=== PATIENT | female | born 1945 | race Caucasian/White ===

== ENCOUNTER → 2016-09-26 | Outpatient (CLI) | payer MEDICARE, MEDICAID ==
[~2016-09-26] MED LIST: ALN70T PO; ASPI-999 PO; CALC-697 PO; CALC-901 PO; CARB15DR87 EACH EAR; CARB15DR87 OT; CHOL200035 PO; CLOP75TA PO; DEXT1DRO8 OU; DIPH25CA6 PO; FRSM40T PO; GNT.3OP5 OU; KCL10CCR PO; LORA-877 PO; METO-333 PO; METO25TA PO; MIRA25TA PO; MTP100TCR; MULT-35 PO; OMG1KC PO; POLY15DR14 OU; POLY17PO6 PO; POTA10TA14 PO; PRV20T PO; RT-ALBUINH IH; SULAR; TRIA15OI9 TP; VERA120T PO; VERA120T84 PO; VIT1CAPS44 PO; [UNRECOGNIZED DRUG - OTHER] PO
--- NOTE | 2016-09-26 20:33 | Diagnostic Imaging Report ---
Left breast diagnostic mammogram. The current study was also evaluated with a Computer Aided Detection (CAD) system. INDICATION: Increasing calcifications in the central upper aspect of the left breast. FINDINGS: Magnification views are performed and demonstrate minimal pleomorphism and calcification seen at the upper aspect of the left breast with no underlying mass identified. When compared to prior exams, there was only slight increase in these calcifications compared to the prior exam. IMPRESSION: Slowly increasing calcifications demonstrate no significant pleomorphism and are favored to be benign such as dystrophic etiology calcifications. 6 months followup mammograms recommended. ACR BI-RADS Category 3: Probably benign findings. Result letter will be mailed to the patient. Note: At least 10% of breast cancer is not imaged by mammography. Dictated by: Dictated on workstation # [id number]
== END ==
LOC: RAD 13:10
PROVIDERS: ATTEND Nurse Practitioner Family
DX: R92.8 Other abnormal and inconclusive findings on diagnostic imaging of breast (principal)

== ENCOUNTER → 2016-09-27 | Outpatient (CLI) | payer MEDICARE, MEDICAID | LOC: RAD 11:48 | PROVIDERS: ATTEND Internal Medicine Cardiovascular Disease | DX: I70.213 Atherosclerosis of native arteries of extremities with intermittent claudication, bilateral legs (principal); I65.23 Occlusion and stenosis of bilateral carotid arteries; I10 Essential (primary) hypertension; E78.4 Other hyperlipidemia; Z72.0 Tobacco use | CPT/HCPCS: 93923 ==

== ENCOUNTER 2016-11-08 06:55 | Day surgery (SDC) | payer MEDICARE, MEDICAID ==
[~2016-11-08] VITALS: Ht 157.5 cm; Wt 61.7 kg
[2016-11-08] VITALS (11 sets, daily range): BP systolic 147–187; BP diastolic 56–74
[~2016-11-08 06:55] MED LIST changes: -ASPI-999 PO; -CALC-901 PO; -CARB15DR87 EACH EAR; -DIPH25CA6 PO; -METO-333 PO; -MIRA25TA PO; -MULT-35 PO; -OMG1KC PO; -POLY15DR14 OU; -POLY17PO6 PO; -POTA10TA14 PO; -RT-ALBUINH IH; -TRIA15OI9 TP; -VERA120T PO; -VIT1CAPS44 PO
[2016-11-08] MEDS ORDERED: NS IV 1000 ML 1,000 ML ONE (07:06)
[2016-11-08] MEDS ORDERED: HEParin (CATH LAB) 2,000 ML IV ONE (07:06)
[2016-11-08] MEDS ORDERED: LIDOCAINE 1% INJ 20 ML (XYLOCAINE) VIAL ONE (07:06)
[2016-11-08] MEDS ORDERED: NS IV 1000 ML 1,000 ML IV SCH ×2 (07:15→09:11)
[2016-11-08 07:38] LABS: MEAN PLATELET VOLUME 10.2 FL (7.4-10.4); RED BLOOD COUNT 5.39 10^6/uL (4.35-5.85); RED CELL DISTRIBUTION WIDTH 14.2 % (10.0-14.5); WHITE BLOOD COUNT 6.3 10^3/uL (4.3-11.0)
[2016-11-08 07:47] LABS: INR 0.9 (0.8-1.4); PROTHROMBIN TIME PATIENT 11.8 SEC (12.2-14.7)
[2016-11-08 07:56] LABS: ALANINE AMINOTRANSFERASE 22 U/L (0-55); ALBUMIN 4.2 G/DL (3.2-4.5); ANION GAP 10 MMOL/L (5-14); ASPARTATE AMINO TRANSFERASE 22 U/L (5-34); BILIRUBIN,TOTAL 0.4 MG/DL (0.1-1.0); BLOOD UREA NITROGEN 16 MG/DL (7-18); BUN/CREATININE RATIO 19; CALCIUM 9.1 MG/DL (8.5-10.1); CARBON DIOXIDE 28 MMOL/L (21-32); CHLORIDE 105 MMOL/L (98-107); CHOLESTEROL 159 MG/DL (< 200); CREATININE SERUM 0.86 MG/DL (0.60-1.30); DIRECT LDL 76 MG/DL (1-129); GFR ESTIMATED > 60; GLUCOSE 112 MG/DL (70-105); SODIUM 143 MMOL/L (135-145); TRIGLYCERIDES 130 MG/DL (<150); VLDL CHOLESTEROL 26 MG/DL (5-40)
[2016-11-08] MEDS ORDERED: MULT-35 PO (08:06)
[2016-11-08] MEDS ORDERED: VERA120T PO (08:06)
[2016-11-08] MEDS ORDERED: POTA10TA14 PO (08:06)
[2016-11-08] MEDS ORDERED: RT-ALBUINH IH (08:06)
[2016-11-08] MEDS ORDERED: METO-333 PO (08:06)
[2016-11-08] MEDS ORDERED: MIRA25TA PO (08:06)
[2016-11-08] MEDS ORDERED: OMG1KC PO (08:06)
[2016-11-08] MEDS ORDERED: POLY17PO6 PO (08:06)
[2016-11-08] MEDS ORDERED: CALC-901 PO (08:08)
[2016-11-08] MEDS ORDERED: TRIA15OI9 TP (08:11)
[2016-11-08] MEDS ORDERED: fentaNYL INJECTION 100 MCG/2 ML AMP ONE (08:11)
[2016-11-08] MEDS ORDERED: MIDAZOLAM 5 MG/5 ML (VERSED) VIAL ONE (08:11)
[2016-11-08] MEDS ORDERED: diphenhydrAMINE 50 MG/ML INJ (BENADRYL) ONE (08:11)
--- NOTE | 2016-11-08 08:20 | Cardiac Procedure Note-CS/ASA ---
Pre-Procedure Note Pre-Op Procedure Note H&P Reviewed The H&P was reviewed, patient examined and no changes noted. Date H&P Reviewed: Nov 08, 2016 Time H&P Reviewed: 08:20 Conscious Sedation Pre-Proced Time Reviewed: 08:20 ASA Class: 3 Airway Mallampati Classification: ([place] appropriate class) I. II. III, IV Lungs Heart ASA score ASA 1: a normal healthy patient ASA 2: a patient with a mild systemic disease (mid diabetes, controlled hypertension, obesity ASA 3: a patient with a severe systemic disease that limits activity (angina , COPD, prior Myocardial infarction) ASA 4: a patient with an incapacitating disease that is a constant threat to life (CHF, renal failure) ASA 5: a moribund patient not expected to survive 24 hrs. (ruptured aneurysm) ASA 6: a declared brain patient whose organs are being harvested. For emergent operations, add the letter E after the classification Grade 2 Sedation Plan: Analgesia, Amnesia, Plan communicated to team members, Discussed options with patient/fam, Discussed risks with patient/fam Note The patient is an appropriate candidate to undergo the planned procedure, sedation, and anesthesia. The patient immediately re-assessed prior to indication. KAYLIN PORTER MD FACP FACC CCDS Nov 08, 2016 08:20
[2016-11-08] MEDS ORDERED: PATIENT MAY USE OWN MEDS, ALL PO SCH (09:15)
[2016-11-08] MEDS ORDERED: ASPI-999 PO (09:15)
--- NOTE | 2016-11-08 09:15 | Discharge Inst-Post CATH ---
Discharge Inst-CATH Post Cardiac Cath D/C Inst Follow Up/Plan Follow up with Dr Gerardo next week CARDIAC CATH DISCHARGE INSTRUCTIONS *Hold Metformin for 48 hours post heart cath. ACTIVITY * Go Home directly and rest. * Limit activity of the leg (or wrist if it was used) for 7 days including aerobics, swimming, jogging, bicycling, etc. * Restrict stair-climbing for 7 days if possible, if not, climb up with your non -cath leg, then bring together on the same step. * Avoid lifting, pushing, pulling or excessive movement of the affected extremity for 7 days. * Customary sexual activity may be resumed after 2 days-use caution not to use a position that strains or causes pain to the affected extremity. * No driving for 24 hours. * NO SMOKING. * Avoid straining for bowel movements for 7 days. * Gentle walking on level ground is allowed. * Returning to work will depend on the type of procedure and the results. Your doctor will discuss this with you. CALL YOUR DOCTOR FOR ANY OF THE FOLLOWING: *If bleeding from the puncture site occurs- Apply gentle pressure to site with clean cloth and call your doctor or EMS. * If a knot or lump forms under the skin, increases in size, or causes pain. * If bruising appears to be worsening or moving further down your leg instead of disappearing. * Temperature above 101 F. CARE OF YOUR GROIN INCISION; * Bruising or purple discoloration of the skin near the puncture site is common. * You may shower only, no bathtub bathing for 5 days. Be careful to avoid slipping as your leg may feel stiff. * If a closure device was used on your femoral artery, please see the attached guide regarding care of the device and your leg. * REMOVE the dressing from your groin the next day after your procedure in the shower. CARE OF YOUR WRIST INCISION; * Bruising or purple discoloration of the skin near the puncture site is common. * You may shower. * DO NOT submerge wrist. * Remove dressing in 24 hours. KAYLIN GERARDO MD [facility] CCDS Nov 08, 2016 09:15
--- NOTE | 2016-11-08 09:16 | Discharge Inst-Cardiology ---
Discharge Inst-Cardiac Discharge Medications New Medications: Aspirin (Aspirin) 81 Mg Tab.chew 81 MG PO DAILY #90 Ref 3 TAB Continued Medications: Albuterol Sulfate (Ventolin Hfa Common Canister) 1 Puff Puff 1-2 PUFF IH Q4H 1 PUFF = 90 MCG PRN SHORTNESS OF BREATH PUFF Alendronate Sodium (Fosamax) 70 Mg Tab 70 MG PO [place] TAB Calcium Carbonate/Vitamin D3 (Calcium 600 + Vit D 800 Tab) 1 Each Tablet 1 TAB PO DAILY TAB Cholecalciferol (Vitamin D3) (Vitamin D3) 2,000 Unit Capsule 2000 UNIT PO DAILY TAB Clopidogrel Bisulfate (Plavix 75 Mg) 75 Mg Tablet 75 MG PO DAILY TAB Furosemide (Lasix) 40 Mg Tablet 40 MG PO DAILY TAB Metoprolol Tartrate (Metoprolol Tartrate) 25 Mg Tablet 25 MG PO BID TAB Mirabegron (Myrbetriq) 25 Mg Tab.er.24h 25 MG PO DAILY TAB Multivitamin (Daily Multiple Vitamin) 1 Each Tablet 1 TAB PO DAILY TAB [place] 3 Polyunsat Fatty Acids (Fish Oil 1,000 mg Capsule) 1,000 Mg Cap 2000 MG PO DAILY TAKES 2 (1000MG) CAPSULES CAP Polyethylene Glycol 3350 (Miralax) 17 Gm Powd.pack 17 GM PO DAILY PRN CONSTIPATION EACH Potassium Chloride (Klor-Con M10) 10 Meq Tab.er.prt 10 MEQ PO DAILY Pravastatin Sodium (Pravachol) 20 Mg Tablet 20 MG PO HS TAB Triamcinolone Acetonide (Triamcinolone Acetonide 0.5% Ointment) 15 Gm Oint TP DAILY APPLY TO DRY PATCH IN EAR AND CORNERS OF MOUTH TUBE Verapamil HCl (Calan) 120 Mg Tablet 120 MG PO HS TAB KAYLIN PORTER MD FACP FACC CCDS Nov 08, 2016 09:16
--- NOTE | 2016-11-08 13:03 | PROCEDURE REPORT ---
PROCEDURE PHYSICIAN: KAYLIN PORTER PERIPHERAL ANGIOGRAPHY REPORT DATE OF PROCEDURE: 11/08/2016 Chayo Trevino is a 71-year-old lady with known peripheral arterial disease and a history of bilateral common iliac artery stenting by Dr. North in 2011. The patient had undergone kissing stents (7 x 37) by Dr. North at that time. She has had a recurrent increasing leg claudication and segmental leg pressures that were indicative of significant peripheral arterial disease. An informed consent was obtained for angiography for delineation of anatomy and formulation of the therapeutic plan. PROCEDURE: She was brought to the cardiac catheterization laboratory in a fasting state. The right groin was prepared and draped in usual sterile fashion. 1% lidocaine was used for local anesthesia. Modified Seldinger technique was used to advance a 5-Austrian sheath into the right femoral artery. A 5-Austrian pigtail catheter was used for abdominal aortic angiography. The pigtail was then pulled back to just above the level of aortoiliac junction and bilateral leg artery angiography was performed runoff down to the level of the ankles on both sides. ABDOMINAL AORTIC ANGIOGRAPHY: Abdominal aortic angiography indicates mild to moderate abdominal atherosclerosis without significant abdominal aortic aneurysm or abdominal aortic stenosis. Renal arteries are identified and do not exhibit significant disease. The mesenteric vessels, to the extent identified, do not exhibit significant disease. There are patent stents in the aortoiliac bifurcation. BILATERAL LEG ARTERY ANGIOGRAPHY: On the right side, the common iliac artery stent is patent. The right external iliac artery is nearly totally occluded at its ostium and the near total occlusion appears to persist until the reconstitution of the right superficial femoral artery, both antegrade and via collaterals. The superficial femoral artery on the right side does not appear to have significant obstructive disease and the popliteal artery is intact as is the distal trifurcation. On the left side, the common iliac artery stent is patent and there is 70% stenosis in the distal common iliac just past the stent. The external iliac and internal iliac arteries are patent. The left common iliac artery is patent. The left superficial femoral artery is occluded at its ostium and reconstitutes via collaterals in its distal portion. The left popliteal artery is intact as is the trifurcation on the left side. CONCLUSIONS: Severe peripheral arterial disease consisting of near total occlusion of the external iliac and common iliac on the right side and near total to total occlusion of the superficial femoral artery on the left side. There appears to be a 3 vessel runoff on both sides. DESCRIPTION AND RECOMMENDATIONS: Risk factor modification has been reviewed. Current regimen is being continued. She has been advised to refrain from smoking. We will discuss the case with surgical and peripheral interventional services to decide a definitive therapeutic plan. Job ID: [id number] Dictated Date: 11/08/2016 08:57:36 Time Study Observer Date: 11/08/2016 12:05:48 / rosas HARPER
== END 2016-11-08 13:28 | disposition home or self-care (01) ==
LOC: CATH 06:55 → SURG 09:28 → CATH 13:28
PROVIDERS: ATTEND Internal Medicine Cardiovascular Disease
DX: I70.213 Atherosclerosis of native arteries of extremities with intermittent claudication, bilateral legs (principal); I70.92 Chronic total occlusion of artery of the extremities; I70.0 Atherosclerosis of aorta; I10 Essential (primary) hypertension; E78.5 Hyperlipidemia, unspecified; R06.09 Other forms of dyspnea; H35.30 Unspecified macular degeneration; Z79.899 Other long term (current) drug therapy; Z72.0 Tobacco use; Z95.820 Peripheral vascular angioplasty status with implants and grafts
CPT/HCPCS: 36200; 36415; 75625; 75716; 80053; 80061; 85027; 85610; 85730; 87081

== ENCOUNTER 2016-11-17 08:42 | Day surgery (SDC) | payer MEDICARE, MEDICAID ==
[~2016-11-17] VITALS: Ht 157.5 cm; Wt 61.7 kg
[2016-11-17] VITALS (16 sets, daily range): BP systolic 117–160; BP diastolic 44–116
[~2016-11-17 08:42] MED LIST changes: +ASPI-999 PO; +CALC-901 PO; +METO-333 PO; +MIRA25TA PO; +MULT-35 PO; +OMG1KC PO; +POLY17PO6 PO; +POTA10TA14 PO; +RT-ALBUINH IH; +TRIA15OI9 TP; +VERA120T PO
[2016-11-17] MEDS ORDERED: HEParin (CATH LAB) 2,000 ML IV ONE (09:05)
[2016-11-17] MEDS ORDERED: LIDOCAINE 1% INJ 20 ML (XYLOCAINE) VIAL ONE (09:05)
[2016-11-17] MEDS ORDERED: NS IV 1000 ML 1,000 ML ONE (09:05)
[2016-11-17] MEDS ORDERED: NS IV 1000 ML 1,000 ML IV SCH (09:30)
[2016-11-17 09:57] LABS: INR 0.9 (0.8-1.4); PROTHROMBIN TIME PATIENT 12.2 SEC (12.2-14.7)
[2016-11-17 10:02] LABS: ALBUMIN 4.6 G/DL (3.2-4.5); BILIRUBIN,TOTAL 0.5 MG/DL (0.1-1.0); CALCIUM 9.6 MG/DL (8.5-10.1); CREATININE SERUM 1.01 MG/DL (0.60-1.30); POTASSIUM 4.1 MMOL/L (3.6-5.0); TOTAL PROTEIN 7.2 G/DL (6.4-8.2)
[2016-11-17] MEDS ORDERED: ASPI-999 PO (10:07)
[2016-11-17] MEDS ORDERED: DIPH25CA6 PO (10:07)
[2016-11-17] MEDS ORDERED: CARB15DR87 EACH EAR (10:07)
[2016-11-17] MEDS ORDERED: MIDAZOLAM 5 MG/5 ML (VERSED) VIAL ONE (12:25)
[2016-11-17] MEDS ORDERED: fentaNYL INJECTION 100 MCG/2 ML AMP ONE (12:25)
[2016-11-17] MEDS ORDERED: VERAPAMIL 5 MG/2 ML (CALAN) VIAL IV ONE (13:14)
[2016-11-17] MEDS ORDERED: NITROGLYCERIN DRIP 25 MG/D5W 250 ML IV ONE (13:14)
[2016-11-17] MEDS ORDERED: HEParin 1000 UNIT/ML (10ML VIAL) FOR BOLUS ONE (13:14)
--- NOTE | 2016-11-17 15:38 | Cardiac Procedure Note-CS/ASA ---
Pre-Procedure Note Pre-Op Procedure Note H&P Reviewed The H&P was reviewed, patient examined and no changes noted. Date H&P Reviewed: Nov 17, 2016 Time H&P Reviewed: 13:00 Conscious Sedation Pre-Proced Time Reviewed: 13:00 ASA Class: 3 Airway Mallampati Classification: ([place] appropriate class) I. II. III, IV Lungs Heart ASA score ASA 1: a normal healthy patient ASA 2: a patient with a mild systemic disease (mid diabetes, controlled hypertension, obesity ASA 3: a patient with a severe systemic disease that limits activity (angina , COPD, prior Myocardial infarction) ASA 4: a patient with an incapacitating disease that is a constant threat to life (CHF, renal failure) ASA 5: a moribund patient not expected to survive 24 hrs. (ruptured aneurysm) ASA 6: a declared brain patient whose organs are being harvested. For emergent operations, add the letter E after the classification Grade 1 Sedation Plan: Analgesia, Amnesia, Plan communicated to team members, Discussed options with patient/fam, Discussed risks with patient/fam Note The patient is an appropriate candidate to undergo the planned procedure, sedation, and anesthesia. The patient immediately re-assessed prior to indication. More FERNANDEZ MD Nov 17, 2016 3:38 pm
--- NOTE | 2016-11-17 15:40 | Cardiology Post Procedure Note ---
Post-Procedure Note Post-Op Procedure Note Procedure Start Date: Nov 17, 2016 Procedure Start Time: 13:00 Name of Procedure: peripheral angiography, balloon angioplasty and stent to left superficial femoral artery and popliteal artery. Findings/Procedure Note left popliteal access. Totally occluded left SFA treated successfully with balloon angioplasty and stent. Severely diseased left popliteal artery treated successfully with balloon angioplasty and stent. Anesthesia Type: Conscious Sedation Estimated blood loss (mL): 20 cc Contrast Amount: 65 cc of omnipaque Post-Operative Diagnosis Post-operative diagnosis: Successful balloon angioplasty and stent to a totally occluded left SFA and severely diseased left popliteal artery. More FERNANDEZ MD Nov 17, 2016 3:40 pm
[2016-11-17] MEDS: NS IV 1000 ML 1,000 ML IV SCH ×2 (16:00→22:42)
[2016-11-17] MEDS ORDERED: PATIENT MAY USE OWN MEDS, ALL PO SCH (17:30)
[2016-11-17] MEDS ORDERED: CATHETER FLUSH 10 ML SYR IV PRN (19:30)
[2016-11-18] VITALS (7 sets, daily range): BP systolic 126–144; BP diastolic 51–60
[2016-11-18 04:40] LABS: ANION GAP 13 MMOL/L (5-14); BLOOD UREA NITROGEN 16 MG/DL (7-18); BUN/CREATININE RATIO 22; CALCIUM 8.2 MG/DL (8.5-10.1); CARBON DIOXIDE 20 MMOL/L (21-32); CHLORIDE 107 MMOL/L (98-107); CREATININE SERUM 0.74 MG/DL (0.60-1.30); GFR ESTIMATED > 60; GLUCOSE 81 MG/DL (70-105); POTASSIUM 4.1 MMOL/L (3.6-5.0); SODIUM 140 MMOL/L (135-145)
[2016-11-18 06:14] LABS: MEAN PLATELET VOLUME 10.5 FL (7.4-10.4); RED BLOOD COUNT 4.43 10^6/uL (4.35-5.85); WHITE BLOOD COUNT 6.5 10^3/uL (4.3-11.0)
[2016-11-18] MEDS ORDERED: ASPIRIN E.C. 81 MG (ECOTRIN) TAB PO SCH (09:00)
[2016-11-18] MEDS ORDERED: CLOPIDOGREL 75 MG (PLAVIX) TABLET PO SCH (09:00)
--- NOTE | 2016-11-18 09:55 | PROCEDURE REPORT ---
PROCEDURE PHYSICIAN: JUMANA OROPEZA DATE OF PROCEDURE: 11/17/2016 PERIPHERAL AORTOGRAM AND INTERVENTION REPORT: REFERRING PHYSICIAN: Dr. Emir Gerardo PERFORMING PHYSICIAN: Dr. Gregorio Oropeza. INDICATION: Severe lifestyle limiting claudication, refractory to optimal medical therapy. PREOPERATIVE DIAGNOSIS: Severe lifestyle limiting bilateral lower extremity claudication which is refractory to optimal medical therapy. POSTOPERATIVE DIAGNOSIS: Total long segment of occlusion in the left superficial femoral artery successfully treated with balloon angioplasty and 2 stents. HISTORY: Ms. Trevino is a 71-year-old lady who is a patient of Dr. Emir Gerardo. She had severe lifestyle limiting bilateral lower extremity claudication which was refractory to optimal medical therapy. Peripheral angiogram was performed by Dr. Gerardo recently which showed severe proximal common iliac artery stenosis as well as a long segment of occlusion of the entire segment of the left SFA with significant disease in the left popliteal artery and 2 vessel runoff in the left lower extremity. There is also occlusion of the right common femoral artery and the right external iliac artery as well. There is a history of bilateral kissing stent in the ostia of the bilateral common iliac artery in the past. She has also had a previous balloon angioplasty in the right SFA. She was referred to our office for evaluation of complex peripheral intervention. All of the images were reviewed and the plan was to get access in the left popliteal artery and to do balloon angioplasty and intervention from that approach. Therefore the patient was scheduled for urgent angiography and intervention. PROCEDURE PERFORMED: 1. Ultrasound-guided access of the left popliteal artery. 2. Selective peripheral angiogram of the left popliteal artery, left anterior tibial artery, left posterior tibial artery, left SFA. 3. Selective angiogram of the left common femoral artery. 4. Balloon angioplasty and stent placement in the entire segment of the left superficial femoral artery. SPECIMENS: None. COMPLICATIONS: None. ESTIMATED BLOOD LOSS: 20 mL. ANTICOAGULATION: IV heparin. FLUOROSCOPY TIME: 27.1 minute. FLUOROSCOPY DOSE: 226 mgy CONTRAST: 65 cc of omnipaque PROCEDURE DETAILS: The patient was brought to the [facility] after informed consent was taken. All the risks and complications were explained in detail. The patient was placed in a prone position and the left popliteal fossa was prepped for access. She was draped and prepped in the usual sterile fashion. Access was gained in the left popliteal artery with difficulty under ultrasound. A couple of times we gained access in the popliteal vein. The popliteal artery does have at least moderate disease and a small caliber. However, with difficulty, we were able to place a 4-Lithuanian sheath. After proper placement of the sheath was confirmed, we did give 200 mcg of nitroglycerin and 5 mg of verapamil. We then exchanged to a 6-Lithuanian sheath; however, we noted that the 6-Lithuanian sheath was almost occlusive with no significant distal flow. The patient did not complain of any left lower extremity pain; therefore, we decided to proceed. We took a 0.035 standard angle Glidewire 260 cm and a Navicross 0.035 microcatheter. With difficulty we were able to gradually traverse and advance through the entire occlusive segment of the SFA and were able to reach the distal aspect of the left INSPECTION AND TESTING SUPERVISOR. We then took the wire out and performed a selective angiogram through the microcatheter in the distal external iliac artery which showed that we were intraluminal. We then performed another angiogram in the left distal external iliac artery and did a followthrough which showed a totally occluded SFA in the entire length with collaterals being supplied by the deep femoral artery. Disease was also noted in the left common femoral artery. We then took [place] 35, 5 x 200 x 150 cm balloon but were not able to advance it into the SFA. We then took it out and placed the microcatheter back. We then took a 0.014 Spart[place]ore 300 cm guidewire and placed it into the distal abdominal aorta. On top of this 0.014 guidewire, we took an [place] 14, 4 x 120 x 150 balloon and were able to advance the distal aspect of the left [employer]PECTION AND TESTING SUPERVISOR. We performed balloon angioplasty in the distal left INSPECTION AND TESTING SUPERVISOR and proximal SFA at 11 atmospheres for 44 seconds. We then did overlapping balloon inflations in the entire SFA. Next inflation was done at 10 atmospheres for 65 seconds. We went up with a microcatheter and took a selective angiogram which somewhat recanalization of the SFA; however, there was still significant residual stenosis. We then took an [place] 35, 5 x 200 x 150 and were now able to advance it in the proximal SFA and distal INSPECTION AND TESTING SUPERVISOR and performed an inflation at 17 atmospheres for 33 seconds. We then did another overlapping balloon dilatation in the mid segment for 17 atmospheres for 33 seconds. We then did a 3rd inflation for 12 atmospheres for 42 seconds in the distal SFA as well as the popliteal artery, which was also significantly diseased. We then took a Supera 5.5 x 150 x 120 stent and placed it very carefully at the very distal INSPECTION AND TESTING SUPERVISOR into the proximal and mid aspect of the superficial femoral artery. This was postdilated at high pressures with the 5.0 balloon that we had already had used previously as well. We then took another Supera 5.0 x 120 x 120 and did a short overlap and deployed it in the distal SFA and into the popliteal artery. The stent deployment system was taken out and then we placed the microcatheter back which showed reasonable flow in the SFA. However, moderate disease was noted in the left INSPECTION AND TESTING SUPERVISOR as well; however, we still had very faint distal flow in the popliteal due to an occlusive sheath. We therefore took the 6-Lithuanian sheath out and placed a 4-Lithuanian sheath and through which gave 200 mcg of nitroglycerin and took a selective angiogram with good flow with spasm was noted in the popliteal artery, but we noted good flow into the popliteal artery with a 3 vessel runoff in the left lower extremity. At this point in time, we took the wires and everything out. The 6F sheath (4F sheath replaced by another 6F sheath) was sutured in place. The patient tolerated the procedure well and was sent to the recovery area with stable vital signs. The popliteal sheath will be closed with manual compression in the stepdown unit. IMPRESSION/CONCLUSION: 1. Long segment of totally occluded SFA treated successfully with balloon angioplasty and stent. Severely diseased popliteal artery also treated with balloon angioplasty and stent. 2. Mid and distal aspect of the popliteal artery is a small caliber and had spasm and occlusive 6-Lithuanian sheath. 3. Moderate left INSPECTION AND TESTING SUPERVISOR stenosis noted. 4. Previously known severe left common artery stenosis and total occlusion of the right INSPECTION AND TESTING SUPERVISOR will be treated at later date. 5. The patient will be transferred to the stepdown unit and continue on aspirin and Plavix. Distal pulses will be checked at regular intervals. 6. The patient, once ready for after discharge, will be seen in my office in 3 to 4 weeks to plan for the next intervention. Job ID: [id number] Dictated Date: 11/17/2016 23:26:34 Yard Coordinator Date: 11/18/2016 09:30:30 / stanley HARPER
--- NOTE | 2016-11-18 22:40 | Cardiology Discharge Summary ---
Diagnosis/Chief Complaint Date of Admission 11/17/2016 Date of Discharge 11/18/2016 Admission Diagnosis severe lifestyle limiting claudication refractory to optimal medical therapy Final/Discharge Diagnosis long segment total occlusion of the left SFA successfully treated with balloon angioplasty and 2 stents. Chief Complaint/HPI Chief Complaint/HPI severe lifestyle limiting claudication refractory to optimal medical therapy. Discharge Summary Procedures peripheral angiography and intervention. Successful balloon angioplasty and stent placement in a totally occluded left SFA via left popliteal access. Two long supera stents placed. Discharge Physical Examination normal left popliteal fossa with no bruit. Normal cardiac and respiratory exam. Hospital Course stable Discussion & Recommendations Discussion stable. Follow up appt.: Dr. Oropeza in 3-4 weeks Dicharge Diet: Cardiac Diet Activity as Tolerated: Yes Home Medications Reviewed patient Home Medication Reconciliation Form Discharge Home Medications: Reviewed and agree with Discharge Medication list on patient's Discharge Instruction sheet Condition at discharge stable Instructions to patient/family follow-up appointment with Dr. Oropeza in 3-4 weeks. Post-peripheral angiography care instructions given by More GUTIERREZ MD Nov 18, 2016 22:40
== END 2016-11-18 11:25 | disposition home or self-care (01) ==
LOC: CATH 08:42 → ICU 15:50 → CATH 11-18 11:25
PROVIDERS: ATTEND Internal Medicine Interventional Cardiology
DX: I70.213 Atherosclerosis of native arteries of extremities with intermittent claudication, bilateral legs (principal); I70.92 Chronic total occlusion of artery of the extremities; I10 Essential (primary) hypertension; Z79.899 Other long term (current) drug therapy; Z72.0 Tobacco use
CPT/HCPCS: 36415; 37226; 80048; 80053; 85027; 85347; 85610; 85730; 87081

== ENCOUNTER 2017-01-05 07:19 | Day surgery (SDC) | payer MEDICARE, MEDICAID ==
[~2017-01-05] VITALS: Ht 157.5 cm; Wt 61.7 kg
[2017-01-05] VITALS (7 sets, daily range): BP systolic 86–176; BP diastolic 46–69
[~2017-01-05 07:19] MED LIST changes: +CARB15DR87 EACH EAR; +DIPH25CA6 PO
[2017-01-05] MEDS ORDERED: NS IV 1000 ML 1,000 ML ONE ×2 (07:27→11:23)
[2017-01-05] MEDS ORDERED: HEParin (CATH LAB) 2,000 ML IV ONE (07:27)
[2017-01-05] MEDS ORDERED: LIDOCAINE 1% INJ 20 ML (XYLOCAINE) VIAL ONE (07:27)
[2017-01-05] MEDS: NS IV 1000 ML 1,000 ML IV SCH ×3 (08:03→13:52)
[2017-01-05 08:09] LABS: MEAN PLATELET VOLUME 10.1 FL (7.4-10.4); RED BLOOD COUNT 5.19 10^6/uL (4.35-5.85); RED CELL DISTRIBUTION WIDTH 14.2 % (10.0-14.5); WHITE BLOOD COUNT 6.9 10^3/uL (4.3-11.0)
[2017-01-05 08:18] LABS: BILIRUBIN,URINE NEGATIVE (NEGATIVE); KETONES,URINE NEGATIVE (NEGATIVE); LEUKOCYTE ESTERASE ,URINE 3+ (NEGATIVE); NITRITE,URINE NEGATIVE (NEGATIVE); PH,URINE 7 (5-9); UROBILINOGEN,URINE NORMAL (NORMAL)
[2017-01-05 08:25] LABS: PROTEIN,URINE NEGATIVE (NEGATIVE)
[2017-01-05 08:28] LABS: ALANINE AMINOTRANSFERASE 15 U/L (0-55); ALBUMIN 4.5 G/DL (3.2-4.5); ANION GAP 10 MMOL/L (5-14); ASPARTATE AMINO TRANSFERASE 18 U/L (5-34); BILIRUBIN,TOTAL 0.4 MG/DL (0.1-1.0); BLOOD UREA NITROGEN 19 MG/DL (7-18); BUN/CREATININE RATIO 22; CALCIUM 9.4 MG/DL (8.5-10.1); CARBON DIOXIDE 31 MMOL/L (21-32); CHLORIDE 103 MMOL/L (98-107); CREATININE SERUM 0.85 MG/DL (0.60-1.30); GFR ESTIMATED > 60; GLUCOSE 102 MG/DL (70-105); INR 0.9 (0.8-1.4); POTASSIUM 3.9 MMOL/L (3.6-5.0); PROTHROMBIN TIME PATIENT 11.8 SEC (12.2-14.7); SODIUM 144 MMOL/L (135-145); TOTAL PROTEIN 7.3 G/DL (6.4-8.2)
[2017-01-05] MEDS ORDERED: POLY15DR14 OU (08:31)
[2017-01-05] MEDS ORDERED: VIT1CAPS44 PO (08:35)
[2017-01-05] MEDS ORDERED: HEParin 1000 UNIT/ML (10ML VIAL) FOR BOLUS ONE (09:46)
[2017-01-05] MEDS ORDERED: fentaNYL INJECTION 100 MCG/2 ML AMP ONE (09:46)
[2017-01-05] MEDS ORDERED: diphenhydrAMINE 50 MG/ML INJ (BENADRYL) ONE (09:46)
[2017-01-05] MEDS ORDERED: MIDAZOLAM 5 MG/5 ML (VERSED) VIAL ONE (09:46)
[2017-01-05] MEDS ORDERED: NITROGLYCERIN DRIP 25 MG/D5W 250 ML IV ONE (09:49)
--- NOTE | 2017-01-05 10:19 | Cardiac Procedure Note-CS/ASA ---
Pre-Procedure Note Pre-Op Procedure Note H&P Reviewed The H&P was reviewed, patient examined and no changes noted. Date H&P Reviewed: Jan 05, 2017 Time H&P Reviewed: 10:18 Conscious Sedation Pre-Proced Time Reviewed: 10:18 ASA Class: 3 Airway Mallampati Classification: ([place] appropriate class) I. II. III, IV Lungs Heart ASA score ASA 1: a normal healthy patient ASA 2: a patient with a mild systemic disease (mid diabetes, controlled hypertension, obesity ASA 3: a patient with a severe systemic disease that limits activity (angina , COPD, prior Myocardial infarction) ASA 4: a patient with an incapacitating disease that is a constant threat to life (CHF, renal failure) ASA 5: a moribund patient not expected to survive 24 hrs. (ruptured aneurysm) ASA 6: a declared brain patient whose organs are being harvested. For emergent operations, add the letter E after the classification Grade 1 Sedation Plan: Analgesia, Amnesia, Plan communicated to team members, Discussed options with patient/fam, Discussed risks with patient/fam Note The patient is an appropriate candidate to undergo the planned procedure, sedation, and anesthesia. The patient immediately re-assessed prior to indication. More FERNANDEZ MD Jan 05, 2017 10:19 am
[2017-01-05] MEDS ORDERED: ENALAPRILAT 2.5 MG/2 ML (VASOTEC) VIAL IV ONE (11:58)
[2017-01-05] MEDS ORDERED: PROTAMINE 50 MG/5 ML VIAL ONE (12:03)
--- NOTE | 2017-01-05 12:32 | Cardiology Post Procedure Note ---
Post-Procedure Note Post-Op Procedure Note Procedure Start Date: Jan 05, 2017 Procedure Start Time: 10:20 Name of Procedure: abdominal aortogram with bilateral lower extremity runoff, TAKER OFF HEMP FIBER to right prox SFA, TABLE COVER FOLDER. TAKER OFF HEMP FIBER to right external Illiac artery. TAKER OFF HEMP FIBER to right common illiac artery. Stent to right external illiac artery. Findings/Procedure Note Severe right prox SFA, TABLE COVER FOLDER stenosis - TAKER OFF HEMP FIBER done Severe right external illiac artery stenosis - TAKER OFF HEMP FIBER and stent done Severe right common illiac artery stenosis - TAKER OFF HEMP FIBER done Anesthesia Type: Conscious Sedation Estimated blood loss (mL): 50 Contrast Amount: 100 Post-Operative Diagnosis Post-operative diagnosis: Severe right common illiac, external illiac, TABLE COVER FOLDER, SFA stenosis treated successfully with TAKER OFF HEMP FIBER/stent More FERNANDEZ MD Jan 05, 2017 12:32 pm
[2017-01-05] MEDS ORDERED: PATIENT MAY USE OWN MEDS, ALL PO SCH (12:45)
[2017-01-05 19:56] LABS: MEAN PLATELET VOLUME 10.4 FL (7.4-10.4); RED BLOOD COUNT 4.03 10^6/uL (4.35-5.85); RED CELL DISTRIBUTION WIDTH 14.1 % (10.0-14.5); WHITE BLOOD COUNT 9.1 10^3/uL (4.3-11.0)
--- NOTE | 2017-01-05 19:59 | Diagnostic Imaging Report ---
PROCEDURE: CT abdomen and pelvis without contrast. TECHNIQUE: Multiple contiguous axial images were obtained through the abdomen and pelvis without the use of intravenous contrast. INDICATION: Heart catheterization with left femoral artery bleeding and hematoma. The gallbladder is absent. The liver and bile ducts are normal. The spleen, pancreas and adrenals are normal. The kidneys, ureters and bladder are normal. There is diverticulosis with no evidence of diverticulitis or other acute bowel abnormality. No free intraperitoneal air or fluid. No retroperitoneal hemorrhage is evident. There is some induration in the left groin which may be secondary to some hemorrhage but a focal hematoma is not evident at this time. IMPRESSION: There is inflammation/induration in the left groin but a focal mass is not seen. No acute abnormality in the abdomen or pelvis is seen. Dictated by: Dictated on workstation # [id number]
[2017-01-06] VITALS (9 sets, daily range): BP systolic 96–136; BP diastolic 42–53
[2017-01-06] MEDS: NS IV 1000 ML 1,000 ML IV SCH ×2 (00:14→10:08)
[2017-01-06 03:47] LABS: MEAN PLATELET VOLUME 10.2 FL (7.4-10.4); RED BLOOD COUNT 3.64 10^6/uL (4.35-5.85); RED CELL DISTRIBUTION WIDTH 14.2 % (10.0-14.5); WHITE BLOOD COUNT 8.4 10^3/uL (4.3-11.0)
[2017-01-06 04:15] LABS: ANION GAP 10 MMOL/L (5-14); BLOOD UREA NITROGEN 20 MG/DL (7-18); BUN/CREATININE RATIO 26; CALCIUM 7.4 MG/DL (8.5-10.1); CARBON DIOXIDE 19 MMOL/L (21-32); CHLORIDE 113 MMOL/L (98-107); CREATININE SERUM 0.78 MG/DL (0.60-1.30); GFR ESTIMATED > 60; GLUCOSE 101 MG/DL (70-105); POTASSIUM 4.1 MMOL/L (3.6-5.0); SODIUM 142 MMOL/L (135-145)
--- NOTE | 2017-01-06 08:20 | OPERATIVE REPORT ---
DATE OF SERVICE: 01/05/2017 PROCEDURE: Peripheral angiogram and intervention. REFERRING PHYSICIAN: Dr. Emir Gerardo. PERFORMING PHYSICIAN: Dr. Cheryle Oropeza. INDICATION: Severe lifestyle limiting claudication refractory to optimal medical therapy. PREOPERATIVE DIAGNOSIS: Severe lifestyle limiting claudication refractory to optimal medical therapy. POSTOPERATIVE DIAGNOSIS: Severe disease in the right lower extremity treated successfully with balloon angioplasty and stent. HISTORY: The patient is a 71-year-old lady with significant risk factors for atherosclerotic disease including active smoking. She presented with severe lifestyle limiting claudication. Peripheral angiography was performed by Dr. Gerardo. She was referred to our office for evaluation for complex intervention. Previous intervention was performed on 11/17/2016 which was via a left popliteal approach at chronic total long occlusion in the entire length of the SFA, which was revascularized with two long supera stents. The patient tolerated the procedure well and did not have any complications. She was seen in the office with significant right lower extremity claudication symptoms. The patient has known right lower extremity severe stenosis; therefore, she was consented for procedure on the right lower extremity today. PROCEDURE PERFORMED: 1. Abdominal aortogram with bilateral lower extremity runoff. 2. Selective angiogram of the right common iliac artery, external iliac artery CONSTRUCTION CONTRACTOR and SFA. 3. Balloon angioplasty of the proximal SFA and CONSTRUCTION CONTRACTOR. 4. Balloon angioplasty of the right external iliac artery. 5. Balloon angioplasty of the right common iliac artery. 6. Stent of the right external iliac artery. COMPLICATIONS: None. SPECIMENS REMOVED: None. ESTIMATED BLOOD LOSS: 50 mL. EQUIPMENT: 1. 0.035 Storq wire 300 cm. 2. RIM crossover catheter. 3. Pigtail catheter. 4. 6 Stateless x 11 sheath. 5. 6 Stateless x 45 cm flexor sheath. 6. [place] 35 4 x 100 x 135 cm balloon. 7. Absolute Pro 7 x 80 x 80 self expanding stent. 8. [place] 35 7 x 80 x 80 balloon. 9. Glidecath 5 Stateless x 100 cm. 10. 7 Stateless 11 cm sheath. Final results: excellent. INTRAVENOUS ANTICOAGULATION: Intravenous heparin. CONTRAST: 100 mL of Omnipaque. Flouro TIME: 15.6 minute. FLUOROSCOPY DOSE: 701 mGy. PROCEDURE DETAILS: The patient was brought to the cath laboratory after informed consent was taken. All the risks and complications were explained in detail. The patient was draped and prepped in the usual sterile fashion. We gained access in the left femoral artery with a 6-Stateless sheath. We then advanced a pigtail catheter on top of 0.035 Storq wire and placed in the distal abdominal aorta. Abdominal aortogram and bilateral lower extremity runoff was performed. It showed mild distal abdominal aortic disease. There is moderate to severe disease noted in the ostium and the proximal segment of the right common iliac artery. Mild to moderate disease in the mid left common iliac artery (instent restenosis ). There is mild disease in the left external iliac, as well as the left CONSTRUCTION CONTRACTOR. Patent stent in the left SFA with good distal flow. There is mild disease in the left popliteal artery with at least 2-1/2 vessel runoff below the knee. Right lower extremity reveals severe right common iliac artery ostial and proximal disease (instent restenosis). Severe disease of the right external iliac artery. Severe disease in the distal CONSTRUCTION CONTRACTOR and proximal SFA. Patent SFA and popliteal artery with 2-1/2 vessel runoff below the knee. We tried to crossover with a pigtail catheter but were not able to. Therefore, the pigtail catheter was taken out and exchanged with a rim. RECOMMENDATIONS: 1. Balloon angioplasty to the right CONSTRUCTION CONTRACTOR/proximal SFA is recommended. 2. Balloon angioplasty to the right external iliac artery is recommended. 3. Balloon angioplasty to the right common iliac artery is recommended. 4. Stent placement in the right external iliac artery is recommended. DETAILS OF VASCULAR INTERVENTION: we gave 5000 of intravenous heparin. ACT during the procedure was over 300 seconds. We then crossed with a rim catheter. The rim catheter was placed in the proximal to mid SFA. We did a pullback and measured pressures. The pressure in the proximal SFA was 58/46 mmHg. We then withdrew the catheter until the proximal CONSTRUCTION CONTRACTOR across the lesion in the distal CONSTRUCTION CONTRACTOR/proximal SFA. The blood pressure increased to 78/50 mmHg. This gave us a gradient across that lesion of 20 mmHg. We then continued pullback and placed the catheter in the distal right common iliac artery and the blood pressure was 134/56 mmHg. Again, there was significant gradient across the lesion in the right external iliac artery. We then pulled the catheter in the distal abdominal aorta and the pressures were 158/60, which suggests another 20 mm of gradient across the right common iliac artery. We then did a pullback in the left common iliac external iliac until the left CONSTRUCTION CONTRACTOR. There was no significant gradient or it was less than 5 mmHg. We put the Storq wire back in and placed it in the distal right SFA. The rim catheter was taken out. We then took an [place] 35 4 x 100 x 135 balloon and did a balloon dilatation in the distal CONSTRUCTION CONTRACTOR and proximal SFA for 12 atmospheres for 120 seconds. We then pulled the balloon back and placed it across the right external iliac artery and did inflation there at 12 atmospheres for 120 seconds. We then withdrew the balloon further into the right common iliac artery and did two inflations of atmospheres for 120 seconds. Then we took the 6 Stateless sheath out and put a 45 cm 6-Stateless long sheath. The tip of the sheath was placed in the right common iliac artery. Selective angiogram was done which showed significant improvement in flow; however, there was possibility of mild dissection and haziness and significant residual disease in the right external iliac artery, as well as in the distal CONSTRUCTION CONTRACTOR and proximal SFA. We, therefore, decided to put a stent in the right external iliac artery. We took and absolute Pro 7 x 80 x 80 self expanding stent and that was deployed in the right external iliac artery. However, after stent deployment we still noted suboptimal stent expansion; therefore, we took [place] 35 7 x 80 x 80 balloon and first inflation was performed at the distal edge of the stent for 6 atmospheres for 60 seconds. We then pulled the balloon back and did another in the mid and proximal aspect of the stent for 10 atmospheres for 60 seconds. We then used the same balloon to do balloon angioplasty of the right common iliac artery at 14 atmospheres for 60 seconds with excellent results. Post balloon angioplasty results showed excellent expansion with no significant residual stenosis. We then took the same balloon and did a low inflation at 5 atmospheres at the level of the CONSTRUCTION CONTRACTOR for 45 seconds with good results. Angiographically, there was significant improvement in flow. We then took a straight catheter and did pressure gradients from the right proximal SFA back to the distal abdominal aorta in the right lower extremity and there were no gradients from the right SFA to the distal abdominal aorta suggesting significant improvement in flow. At the end we took another selective angiogram of the right common external iliac artery, CONSTRUCTION CONTRACTOR, SFA, popliteal and [id number] runoff which showed no significant improvement in flow and no significant vascular complication with good flow below the knee. The patient tolerated the procedure well. We noticed a small to medium sized hematoma in the left groin. Manual compression was performed. Heparin was reversed with 20 mg of Protamine and then manual compression was done. We removed the long sheath and exchanged it with a 7 Stateless sheath. Then, once the ACT was around 150 seconds we took the 7 Stateless sheath out and had manual compression with no significant hematoma seen. IMPRESSION/CONCLUSION: 1. Severe disease in the right common and external iliac artery. There is also severe disease in the right distal CONSTRUCTION CONTRACTOR and proximal SFA. 2. Stenosis in the right common iliac artery, as well as right CONSTRUCTION CONTRACTOR/proximal SFA treated with balloon angioplasty alone. 3. Severe disease in the right external iliac artery where it was successfully revascularized with 7 mm self-expanding stent with excellent results. PLAN: 1. Intravenous fluids. 2. The patient will be continued on dual antiplatelet therapy. 3. CBC and basic metabolic panel will be done in the morning. 4. The patient hopefully will be discharged tomorrow to followup with Dr. Gerardo. Job ID: [id number] DocumentID: [id number] Dictated Date: 01/05/2017 13:48:07 News Broadcaster Date: 01/05/2017 17:50:43 Dictated By: CHERYLE OROPEZA MD MTDD
[2017-01-06] MEDS ORDERED: ASPIRIN E.C. 81 MG (ECOTRIN) TAB PO SCH ×2 (09:00→09:39)
[2017-01-06] MEDS ORDERED: CLOPIDOGREL 75 MG (PLAVIX) TABLET PO SCH ×2 (09:00→09:38)
--- NOTE | 2017-01-06 11:24 | Discharge Inst-Post CATH ---
Discharge Inst-CATH Post Cardiac Cath D/C Inst Follow Up/Plan follow up with Dr muniz in one week CARDIAC CATH DISCHARGE INSTRUCTIONS *Hold Metformin for 48 hours post heart cath. ACTIVITY * Go Home directly and rest. * Limit activity of the leg (or wrist if it was used) for 7 days including aerobics, swimming, jogging, bicycling, etc. * Restrict stair-climbing for 7 days if possible, if not, climb up with your non -cath leg, then bring together on the same step. * Avoid lifting, pushing, pulling or excessive movement of the affected extremity for 7 days. * Customary sexual activity may be resumed after 2 days-use caution not to use a position that strains or causes pain to the affected extremity. * No driving for 24 hours. * NO SMOKING. * Avoid straining for bowel movements for 7 days. * Gentle walking on level ground is allowed. * Returning to work will depend on the type of procedure and the results. Your doctor will discuss this with you. CALL YOUR DOCTOR FOR ANY OF THE FOLLOWING: *If bleeding from the puncture site occurs- Apply gentle pressure to site with clean cloth and call your doctor or EMS. * If a knot or lump forms under the skin, increases in size, or causes pain. * If bruising appears to be worsening or moving further down your leg instead of disappearing. * Temperature above 101 F. CARE OF YOUR GROIN INCISION; * Bruising or purple discoloration of the skin near the puncture site is common. * You may shower only, no bathtub bathing for 5 days. Be careful to avoid slipping as your leg may feel stiff. * If a closure device was used on your femoral artery, please see the attached guide regarding care of the device and your leg. * REMOVE the dressing from your groin the next day after your procedure in the shower. CARE OF YOUR WRIST INCISION; * Bruising or purple discoloration of the skin near the puncture site is common. * You may shower. * DO NOT submerge wrist. * Remove dressing in 24 hours. More FERNANDEZ MD Jan 06, 2017 11:24 am
--- NOTE | 2017-01-06 11:31 | Cardiology Discharge Summary ---
Diagnosis/Chief Complaint Date of Admission 01/05/2017 Date of Discharge 01/06/2017 Admission Diagnosis Severe lifestyle limiting claudication refractory to optimal medical therapy Final/Discharge Diagnosis Status post-successful balloon angioplasty to right common iliac artery, right INSTRUMENTATION AND CONTROL TECHNICIAN and proximal SFA Status post-successful stent to right external iliac artery Chief Complaint/HPI Chief Complaint/HPI This is a 71-year-old lady with history of active smoking. She also has severe lifestyle limiting claudication on optimal medical therapy. Discharge Summary Procedures Peripheral angiography, successful PTCA and stent to right lower extremity. Discharge Physical Examination Normal cardiac and respiratory exam. Left groin bruising noted. Soft, with no bruit. Peripheral pulses palpable. Hospital Course Patient developed a hematoma in the left groin. CT scan showed no retroperitoneal bleeding. Pending Labs Laboratory Tests 01/06/17 03:40: White Blood Count 8.4, Red Blood Count 3.64, Hemoglobin 10.6, Hematocrit 34, Mean Corpuscular Volume 93, Mean Corpuscular Hemoglobin 29, Mean Corpuscular Hemoglobin Concent 31, Red Cell Distribution Width 14.2, Platelet Count 200, Mean Platelet Volume 10.2, Sodium Level 142, Potassium Level 4.1, Chloride Level 113, Carbon Dioxide Level 19, Anion Gap 10, Blood Urea Nitrogen 20, Creatinine 0.78, Estimat Glomerular Filtration Rate > 60, BUN/Creatinine Ratio 26, Glucose Level 101, Calcium Level 7.[address] abdomen/pelvis showed no retroperitoneal bleeding and no focal hematoma Discussion & Recommendations Discussion Status post revascularization to the right lower extremity via left femoral approach Follow up appt.: Dr. Gerardo in one to 2 weeks. Dicharge Diet: Cardiac Diet Activity as Tolerated: Yes Home Medications Reviewed patient Home Medication Reconciliation Form Discharge Home Medications: Reviewed and agree with Discharge Medication list on patient's Discharge Instruction sheet Condition at discharge Stable Instructions to patient/family follow up with Dr gerardo in one week More FERNANDEZ MD Jan 06, 2017 11:31 am
== END 2017-01-06 11:05 | disposition home or self-care (01) ==
LOC: CATH 07:19 → ICU 13:05 → CATH 01-06 11:05
PROVIDERS: ATTEND Internal Medicine Interventional Cardiology
DX: I70.213 Atherosclerosis of native arteries of extremities with intermittent claudication, bilateral legs (principal); I97.638 Postprocedural hematoma of a circulatory system organ or structure following other circulatory system procedure; I10 Essential (primary) hypertension; Z79.899 Other long term (current) drug therapy; Z72.0 Tobacco use; Z79.02 Long term (current) use of antithrombotics/antiplatelets
CPT/HCPCS: 36415; 37221; 37222; 37224; 74176; 80048; 80053; 81000; 85027; 85347; 85610; 85730; 87077; 87081; 87088; 87186

== ENCOUNTER 2017-02-13 21:42 | Emergency (ER) | payer MEDICARE, MEDICAID ==
[~2017-02-13] VITALS: Ht 157.5 cm; Wt 68.0 kg
[~2017-02-13 21:42] MED LIST changes: +POLY15DR14 OU; +VIT1CAPS44 PO
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
[2017-02-13] MEDS ORDERED: TETANUS,DIPTH,PERTUSS P/F (BOOSTRIX) 0.5 ML VIAL IM ONE (22:00)
[2017-02-13] MEDS ORDERED: TRAM-42 PO (22:46)
[2017-02-13] MEDS ORDERED: RX-TRAMADOL 50 MG (ULTRAM) TAB PPK#4 PO ONE (22:47)
[2017-02-13 22:49] VITALS: BP 185/76
--- NOTE | 2017-02-14 07:22 | Diagnostic Imaging Report ---
EXAM: TIBIA/FIBULA, LEFT, 2 VIEWS INDICATION: Fall. Left knee pain and swelling. COMPARISON: None. FINDINGS: No fracture or malalignment. Mild degenerative changes in the left knee and ankle joints. Vascular calcifications. Large amount of swelling overlying the left knee. Partially visualized stent graft terminating above the knee. IMPRESSION: No acute osseous radiographic findings in the left tibia or fibula. Dictated by: Dictated on workstation # [id number]
--- NOTE | 2017-02-14 07:23 | Diagnostic Imaging Report ---
EXAM: KNEE, LEFT, 3 VIEWS INDICATION: Fall. Left knee pain and swelling. COMPARISON: None. FINDINGS: Mild degenerative changes in the left knee. No fractures. Normal alignment. Large amount of soft tissue swelling anteriorly. Vascular calcifications. Partially visualized stent graft terminating above the left knee. IMPRESSION: No acute osseous radiographic findings in the left knee. Dictated by: Dictated on workstation # [id number]
--- NOTE | 2017-02-14 07:25 | Diagnostic Imaging Report ---
INDICATION: Left hip injury. FINDINGS: AP and lateral views of left femur show no fracture or dislocation. IMPRESSION: Negative left femur. Dictated by: Dictated on workstation # [id number]
== END 2017-02-13 22:49 | disposition home or self-care (01) ==
LOC: EDUNIT# 21:42 → ER 21:43
DX: S80.02XA Contusion of left knee, initial encounter (principal); S50.312A Abrasion of left elbow, initial encounter; Z23 Encounter for immunization; I10 Essential (primary) hypertension; J44.9 Chronic obstructive pulmonary disease, unspecified; I73.9 Peripheral vascular disease, unspecified; F17.210 Nicotine dependence, cigarettes, uncomplicated; Z79.82 Long term (current) use of aspirin; Z79.899 Other long term (current) drug therapy; Z95.828 Presence of other vascular implants and grafts; W01.0XXA Fall on same level from slipping, tripping and stumbling without subsequent striking against object, initial encounter; Y93.K1 Activity, walking an animal; Y99.8 Other external cause status
CPT/HCPCS: 73552; 73562; 73590; 90715; 99283

== ENCOUNTER 2017-03-13 15:48 | Observation (INO) | payer MEDICARE, MEDICAID ==
[~2017-03-13] VITALS: Ht 157.5 cm; Wt 61.4 kg
[~2017-03-13 15:48] MED LIST changes: +TRAM-42 PO
[2017-03-13 17:07] VITALS: BP 176/78
[2017-03-13] MEDS ORDERED: cefTRIAXone INJECTION 1,000 MG in NS (IVPB) 50 ML IV NR (17:28)
[2017-03-13] MEDS ORDERED: VANCOMYCIN INJECTION 1,000 MG in NS (IVPB) 250 ML IV NR (17:29)
[2017-03-13] MEDS ORDERED: CATHETER FLUSH 10 ML SYR IV PRN (17:30)
[2017-03-13 18:45] LABS: BASOPHILS # (AUTO) 0.1 10^3/uL (0.0-0.1); BASOPHILS % (AUTO) 1 % (0-10); EOSINOPHILS # (AUTO) 0.2 10^3/uL (0.0-0.3); EOSINOPHILS % (AUTO) 2 % (0-10); LYMPHOCYTES # (AUTO) 2.2 X 10^3 (1.0-4.0); LYMPHOCYTES % (AUTO) 33 % (12-44); MEAN CORPUSCULAR HEMOGLOBIN 28 PG (25-34); MEAN CORPUSCULAR HGB CONC 32 G/DL (32-36); MEAN CORPUSCULAR VOLUME 86 FL (80-99); MEAN PLATELET VOLUME 10.6 FL (7.4-10.4); MONOCYTES # (AUTO) 0.6 X 10^3 (0.0-1.0); MONOCYTES % (AUTO) 9 % (0-12); NEUTROPHILS # (AUTO) 3.6 X 10^3 (1.8-7.8); NEUTROPHILS % (AUTO) 55 % (42-75); PLATELET COUNT 277 10^3/uL (130-400); RED BLOOD COUNT 4.84 10^6/uL (4.35-5.85); RED CELL DISTRIBUTION WIDTH 14.3 % (10.0-14.5); WHITE BLOOD COUNT 6.5 10^3/uL (4.3-11.0)
[2017-03-13 19:03] LABS: ALANINE AMINOTRANSFERASE 19 U/L (0-55); ALBUMIN 4.3 GM/DL (3.2-4.5); ANION GAP 10 MMOL/L (5-14); ASPARTATE AMINO TRANSFERASE 30 U/L (5-34); BILIRUBIN,TOTAL 0.3 MG/DL (0.1-1.0); BLOOD UREA NITROGEN 14 MG/DL (7-18); BUN/CREATININE RATIO 17 (0-20); CALCIUM 10.3 MG/DL (8.5-10.1); CARBON DIOXIDE 30 MMOL/L (21-32); CHLORIDE 101 MMOL/L (98-107); CREATININE SERUM 0.81 MG/DL (0.60-1.30); GFR ESTIMATED > 60; GLUCOSE 80 MG/DL (70-105); HEMOLYSIS 79 (-100-29); ICTERUS 0.6 (-100-1.9); LIPEMIA 10 (-100-49); POTASSIUM 3.6 MMOL/L (3.6-5.0); SODIUM 141 MMOL/L (135-145); TOTAL PROTEIN 7.8 GM/DL (6.4-8.2)
[2017-03-13 19:40] VITALS: BP 177/71
[2017-03-13] MEDS: CATHETER FLUSH 10 ML SYR IV SCH (22:52)
[2017-03-14] VITALS (7 sets, daily range): BP systolic 111–184; BP diastolic 64–79
[2017-03-14] MEDS: CATHETER FLUSH 10 ML SYR IV SCH ×2 (05:50→13:24)
--- NOTE | 2017-03-14 08:04 | Consultation-Cardiology ---
HPI-Cardiology Cardiology Consultation Date of Consultation 03/14/17 Date of Admission Time Seen by Provider: 07:58 Indication: peripheral arterial disease HPI 71 years old lady with history of peripheral arterial disease, hypertension, multiple intervention, extensive workup was done recently. Active smoker. Was in her usual state of health, sustained a fall about 3 weeks ago resulted in left knee injury, bruising and swelling in her left knee expressed that initially was improving slowly then it stopped improving. She was admitted directly for evaluation of her knee effusion, denied any chest pain, palpitation , syncope or near syncopal episodes. Home Medications & Allergies Allergies: Coded Allergies: No Known Drug Allergies (Verified , 12/05/07) Home Medication List Reviewed: Yes reviewed from Dr. Gerardo's note RLE-[id number]-Vsnveu Hx Patient Social History Alcohol Use: Denies Use Recreational Drug Use: No Smoking Status: Current Everyday Smoker Type Used: Cigars Recent Foreign Travel: No Recent Infectious Disease Expo: No Recent Hopitalizations: Yes (stents) Physical Abuse Screen: No Sexual Abuse: No Immunizations Up To Date Date of Pneumonia Vaccine: Jul 19, 2013 Date of Influenza Vaccine: Jun 28, 2016 Past Medical History past medical history as discussed below Family Medical History Family History: Fibrocystic disease of breast 19 MOTHER Glaucoma 19 MOTHER Constitutional: no symptoms reported, see HPI EENTM: no symptoms reported, see HPI Respiratory: see HPI, cough, dyspnea on exertion, No hemoptysis, No orthopnea, No phlegm, No short of breath, No stridor, No wheezing, No other Cardiovascular: see HPI, No chest pain, No edema, No Hx of Intervention, No palpitations, No syncope, No vascular heart diseas, No other Gastrointestinal: see HPI Genitourinary: no symptoms reported, see HPI Musculoskeletal: see HPI, joint swelling (left knee bruising and swelling) Skin: no symptoms reported, see HPI Psychiatric/Neurological: No Symptoms Reported, See HPI Reviewed Test Results Reviewed Test Results Lab Laboratory Tests Test 03/13/17 18:27 03/13/17 20:59 03/14/17 05:42 03/14/17 07:15 Range/Units White Blood Count 6.5 4.3-11.0 10^3/uL Red Blood Count 4.84 4.35-5.85 10^6/uL Hemoglobin 13.3 11.5-16.0 G/DL Hematocrit 42 35-52 % Mean Corpuscular Volume 86 80-99 FL Mean Corpuscular Hemoglobin 28 25-34 PG Mean Corpuscular Hemoglobin Concent 32 32-36 G/DL Red Cell Distribution Width 14.3 10.0-14.5 % Platelet Count 277 130-400 10^3/uL Mean Platelet Volume 10.6 H 7.4-10.4 FL Neutrophils (%) (Auto) 55 42-75 % Lymphocytes (%) (Auto) 33 12-44 % Monocytes (%) (Auto) 9 0-12 % Eosinophils (%) (Auto) 2 0-10 % Basophils (%) (Auto) 1 0-10 % Neutrophils # (Auto) 3.6 1.8-7.8 X 10^3 Lymphocytes # (Auto) 2.2 1.0-4.0 X 10^3 Monocytes # (Auto) 0.6 0.0-1.0 X 10^3 Eosinophils # (Auto) 0.2 0.0-0.3 10^3/uL Basophils # (Auto) 0.1 0.0-0.1 10^3/uL Sodium Level 141 135-145 MMOL/L Potassium Level 3.6 3.6-5.0 MMOL/L Chloride Level 101 98-107 MMOL/L Carbon Dioxide Level 30 21-32 MMOL/L Anion Gap 10 5-14 MMOL/L Blood Urea Nitrogen 14 7-18 MG/DL Creatinine 0.81 0.60-1.30 MG/DL Estimat Glomerular Filtration Rate > 60 BUN/Creatinine Ratio 17 0-20 Glucose Level 80 70-105 MG/DL Calcium Level 10.3 H 8.5-10.1 MG/DL Total Bilirubin 0.3 0.1-1.0 MG/DL Aspartate Amino Transf (AST/SGOT) 30 5-34 U/L Alanine Aminotransferase (ALT/SGPT) 19 0-55 U/L Alkaline Phosphatase 58 40-136 U/L Total Protein 7.8 6.4-8.2 GM/DL Albumin 4.3 3.2-4.5 GM/DL Glucometer 128 H 98 70-110 MG/DL Erythrocyte Sedimentation Rate 12 0-30 MM/HR C-Reactive Protein High Sensitivity 0.45 0.00-0.50 MG/DL Physical Exam Vital Signs Vital Sign - Last 12Hours 6/26/17 17:07 Temp 97.7 Pulse 56 Resp 20 B/P (MAP) 176/78 Pulse Ox 96 O2 Delivery Room Air Capillary Refill : General Appearance: No Apparent Distress, WD/WN Eyes: Bilateral Eye EOMI, Bilateral Eye Normal Inspection, Bilateral Eye PERRL HEENT: PERRL/EOMI, TMs Normal, Normal ENT Inspection, Pharynx Normal Neck: Full Range of Motion, Normal Inspection, Non Tender, Supple, Carotid Bruit Respiratory: Chest Non Tender, Lungs Clear, Normal Breath Sounds, No Accessory Muscle Use, No Respiratory Distress Cardiovascular: Regular Rate, Rhythm, No Edema, No Gallop, No JVD, No Murmur, Normal Peripheral Pulses Gastrointestinal: Normal Bowel Sounds, No Organomegaly, No Pulsatile Mass, Non Tender, Soft Back: Normal Inspection, No CVA Tenderness, No Vertebral Tenderness Extremity: Normal Capillary Refill, Normal Inspection, Normal Range of Motion, Non Tender, No Calf Tenderness, No Pedal Edema Neurologic/Psychiatric: Alert, Oriented x3, No Motor/Sensory Deficits, Normal Mood/Affect Skin: Normal Color, Warm/Dry, Ecchymosis (around the left knee) Lymphatic: No Adenopathy A/P-Cardiology Admission Diagnosis left knee injury with effusion Peripheral arterial disease Hypertension Tobaccoism Assessment/Plan Left knee injury, bruising and swelling, admitted for management, Dr. Rojas was consulted. Peripheral arterial disease, extensive history, history of intervention in March [address] Vargas with balloon angioplasty to the right femoral artery, bilateral iliac stent, another multiple interventions were done earlier in 2016 , patient has near total occlusion of the external area artery around the common iliac near total occlusion of the superficial femoral artery of the left , had balloon angioplasty and stent to the left SFA by Dr. 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 Oropeza Last stress test was done in October 2014 reporting no significant ischemia, followed by Dr. Gerardo Mild dyspnea on exertion probably due to underlying COPD and chronic smoking Hypertension, controlled on current medications History of skin graft to the left leg after a trauma in the remote past Macular degeneration Carotid stenosis, last ultrasound was done in May 2016 reported mild to moderate disease on the right, mild disease on the left. History of sigmoid polyp Clinical Quality Measures DVT/VTE Risk/Contraindication: Risk Factor Score Per Nursin RFS Level Per Nursing on Admit: 4+=Very High LOREN WOLFE MD Mar 14, 2017 08:04
--- OUTSIDE RECORDS SUMMARY | 2017-03-14 09:01 | XMS REPORT | Continuity of Care Document ---
Author Author [facility] Address Unknown Phone Unavailable Allergies Active Description Code Type Severity Reaction Onset Reported/Identified Relationship to Patient Clinical Status Yes No Known Drug Allergies [id number] Drug Allergy Unknown N/ A 12/05/2007 Medications Problems Date Dx Coded Attending Type Code Diagnosis Diagnosed By 03/23/2012 Ot 440.21 ATHEROSCL PAUMA ARTER EXTREM W INTERMIT 03/23/2012 Ot 729.5 PAIN IN LIMB 04/20/2012 Ot 305.1 TOBACCO USE DISORDER 04/20/2012 Ot 401.9 HYPERTENSION NOS 04/20/2012 Ot 440.21 ATHEROSCL PAUMA ARTER EXTREM W INTERMIT 04/20/2012 Ot 440.4 CHRONIC TOTAL OCCLUSION OF ARTERY OF THE 05/17/2012 Ot 211.3 BENIGN NEOPLASM LG BOWEL 05/17/2012 Ot 562.10 DIVERTICULOSIS COLON (W/O MENT OF HEMORR 05/17/2012 Ot V58.63 LONG-TERM(CURRENT)USE OF ANTIPLATELET/AN 05/17/2012 Ot V76.51 SCREEN MAL NEOP-COLON 05/29/2012 Ot 211.3 BENIGN NEOPLASM LG BOWEL 10/30/2012 305.1 NICOTINE DEPENDENCE 10/30/2012 401.1 ESSENTIAL HYPERTENSION BENIGN 10/30/2012 443.9 INTERMITTENT CLAUDICATION 10/30/2012 733.00 OSTEOPOROSIS 10/30/2012 RUSSELL BRENNER MD 305.1 NICOTINE DEPENDENCE 10/30/2012 RUSSELL BRENNER MD 401.1 ESSENTIAL HYPERTENSION BENIGN 10/30/2012 RUSSELL BRENNER MD 443.9 INTERMITTENT CLAUDICATION 10/30/2012 RUSSELL BRENNER MD 733.00 OSTEOPOROSIS 10/30/2012 305.1 NICOTINE DEPENDENCE 10/30/2012 401.1 ESSENTIAL HYPERTENSION BENIGN 10/30/2012 443.9 INTERMITTENT CLAUDICATION 10/30/2012 733.00 OSTEOPOROSIS 10/30/2012 305.1 NICOTINE DEPENDENCE 10/30/2012 401.1 ESSENTIAL HYPERTENSION BENIGN 10/30/2012 443.9 INTERMITTENT CLAUDICATION 10/30/2012 733.00 OSTEOPOROSIS 10/30/2012 ELIDIA MOSHER, RUSSELL Aguero 305.1 NICOTINE DEPENDENCE 10/30/2012 RUSSELL BRENNER MD 401.1 ESSENTIAL HYPERTENSION BENIGN 10/30/2012 ELIDIA MOSHER, RUSSELL M 443.9 INTERMITTENT CLAUDICATION 10/30/2012 ELIDIA MOSHER, RUSSELL M 733.00 OSTEOPOROSIS 10/30/2012 URSSELL BRENNER MD 305.1 NICOTINE DEPENDENCE 10/30/2012 RUSSELL BRENNER MD 401.1 ESSENTIAL HYPERTENSION BENIGN 10/30/2012 RUSSELL BRENNER MD 443.9 INTERMITTENT CLAUDICATION 10/30/2012 RUSSELL BRENNER MD 733.00 OSTEOPOROSIS 10/30/2012 MADL COLOR COATER, MANI L 305.1 NICOTINE DEPENDENCE 10/30/2012 MADL COLOR COATER, MANI L 401.1 ESSENTIAL HYPERTENSION BENIGN 10/30/2012 MADL COLOR COATER, MANI L 443.9 INTERMITTENT CLAUDICATION 10/30/2012 MADL COLOR COATER, MANI L 733.00 OSTEOPOROSIS 10/30/2012 MADL COLOR COATER, MANI L 305.1 NICOTINE DEPENDENCE 10/30/2012 MADL COLOR COATER, MANI L 401.1 ESSENTIAL HYPERTENSION BENIGN 10/30/2012 MADL COLOR COATER, MANI L 443.9 INTERMITTENT CLAUDICATION 10/30/2012 MADL COLOR COATER, MANI L 733.00 OSTEOPOROSIS 10/30/2012 ADEN COLOR COATER, FATEMEH A 305.1 NICOTINE DEPENDENCE 10/30/2012 ADEN COLOR COATER, FATEMEH A 401.1 ESSENTIAL HYPERTENSION BENIGN 10/30/2012 ADEN COLOR COATER, FATEMEH A 443.9 INTERMITTENT CLAUDICATION 10/30/2012 ADEN COLOR COATER, FATEMEH A 733.00 OSTEOPOROSIS 10/30/2012 MADL COLOR COATER, MANI L 305.1 NICOTINE DEPENDENCE 10/30/2012 MADL COLOR COATER, MANI L 401.1 ESSENTIAL HYPERTENSION BENIGN 10/30/2012 MADL COLOR COATER, MANI L 443.9 INTERMITTENT CLAUDICATION 10/30/2012 MADL COLOR COATER, MANI L 733.00 OSTEOPOROSIS 11/12/2012 RUSSELL BRENNER MD 599.70 HEMATURIA 11/12/2012 599.70 HEMATURIA 11/12/2012 599.70 HEMATURIA 11/12/2012 RUSSELL BRENNER MD 599.70 HEMATURIA 11/12/2012 RUSSELL BRENNER MD 599.70 HEMATURIA 11/12/2012 MADL COLOR COATER, MANI L 599.70 HEMATURIA 11/12/2012 MADL COLOR COATER, MANI L 599.70 HEMATURIA 11/12/2012 ADEN APRN, FATEMEH A 599.70 HEMATURIA 11/12/2012 MADL COLOR COATER, MANI L 599.70 HEMATURIA 12/13/2012 Ot 562.10 DIVERTICULOSIS COLON (W/O MENT OF HEMORR 12/13/2012 Ot V12.72 PERSONAL HISTORY OF COLONIC POLYPS 12/13/2012 Ot V67.09 SURGERY FOLLOW-UP, OTHER SURGERY 12/25/2012 272.4 HYPERLIPIDEMIA 12/25/2012 272.4 HYPERLIPIDEMIA 12/25/2012 RUSSELL BRENNER MD 272.4 HYPERLIPIDEMIA 12/25/2012 RUSSELL BRENNER MD 272.4 HYPERLIPIDEMIA 12/25/2012 MADL COLOR COATER, MANI L 272.4 HYPERLIPIDEMIA 12/25/2012 MADL COLOR COATER, MANI L 272.4 HYPERLIPIDEMIA 12/25/2012 ADEN CADET, FATEMEH A 272.4 HYPERLIPIDEMIA 12/25/2012 MADL COLOR COATER, MANI L 272.4 HYPERLIPIDEMIA 05/28/2013 RUSSELL BRENNER MD 477.9 ALLERGIC RHINITIS CAUSE UNSPECIFIED 05/28/2013 RUSSELL BRENNER MD 701.9 UNSPECIFIED HYPERTROPHIC AND ATROPHIC CONDITIONS OF SKIN 05/28/2013 RUSSELL BRENNER MD V04.81 FLU SHOT 05/28/2013 RUSSELL BRENNER MD 477.9 ALLERGIC RHINITIS CAUSE UNSPECIFIED 05/28/2013 RUSSELL BRENNER MD 701.9 UNSPECIFIED HYPERTROPHIC AND ATROPHIC CONDITIONS OF SKIN 05/28/2013 RUSSELL BRENNER MD V04.81 FLU SHOT 05/28/2013 THOMAS SOARES APRNA L 477.9 ALLERGIC RHINITIS CAUSE UNSPECIFIED 05/28/2013 RODGER CADET MANI L 701.9 UNSPECIFIED HYPERTROPHIC AND ATROPHIC CONDITIONS OF SKIN 05/28/2013 THOMAS SOARES APRNA L V04.81 FLU SHOT 05/28/2013 THOMAS SOARES APRNA L 477.9 ALLERGIC RHINITIS CAUSE UNSPECIFIED 05/28/2013 STEFANIA SOARES APRNWNYA L 701.9 UNSPECIFIED HYPERTROPHIC AND ATROPHIC CONDITIONS OF SKIN 05/28/2013 THOMAS SOARES APRNA L V04.81 FLU SHOT 05/28/2013 ADEN CADET FATEMEH A 477.9 ALLERGIC RHINITIS CAUSE UNSPECIFIED 05/28/2013 ADEN COLOR COATER, FATEMEH A 701.9 UNSPECIFIED HYPERTROPHIC AND ATROPHIC CONDITIONS OF SKIN 05/28/2013 ADEN HELIO FATEMEH A V04.81 FLU SHOT 05/28/2013 THOMAS SOARES APRNA L 477.9 ALLERGIC RHINITIS CAUSE UNSPECIFIED 05/28/2013 NIKKO SOARES APRNNYA L 701.9 UNSPECIFIED HYPERTROPHIC AND ATROPHIC CONDITIONS OF SKIN 05/28/2013 THOMAS SOARES APRNA L V04.81 FLU SHOT 01/02/2014 JORGE A MOSHER, MAHSA S Ot 562.10 DIVERTICULOSIS COLON (W/O MENT OF HEMORR 01/02/2014 JORGE A MOSHER, MAHSA Ford Ot V12.72 PERSONAL HISTORY OF COLONIC POLYPS 01/02/2014 JORGE A MOSHER, MAHSA Ford Ot V76.51 SCREEN MAL NEOP-COLON 03/27/2014 RODGER CADET MANI L 702.0 ACTINIC KERATOSIS 03/27/2014 THOMAS SOARES APRNA L 702.0 ACTINIC KERATOSIS 03/27/2014 FATEMEH SAMANIEGO APRN A 702.0 ACTINIC KERATOSIS 03/27/2014 THOMAS SOARES APRNA L 702.0 ACTINIC KERATOSIS 05/26/2014 FATEMEH SAMANIEGO APRN A V65.42 COUNSELING - SMOKING CESSATION 05/26/2014 FATEMEH SAMANIEGO APRN A V72.31 BAND SCROLL SAW OPERATOR EXAM, ROUTINE 05/26/2014 FATEMEH SAMANIEGO APRN A V76.10 BREAST CANCER SCREENING 05/26/2014 MANI SOARES APRN V65.42 COUNSELING - SMOKING CESSATION 05/26/2014 MANI SOARES APRN V72.31 BAND SCROLL SAW OPERATOR EXAM, ROUTINE 05/26/2014 MAIN SOARES APRN V76.10 BREAST CANCER SCREENING 2014 MANI SOARES APRN 465.9 UPPER RESPIRATORY INFECTION 10/30/2014 BAIMA, PROMISE L MUSIC ARRANGER Ot 272.4 10/30/2014 BAIMA, PROMISE L MUSIC ARRANGER Ot 305.1 10/30/2014 BAIMA, PROMISE L MUSIC ARRANGER Ot 401.9 10/30/2014 BAIMA, PROMISE L MUSIC ARRANGER Ot 443.9 10/30/2014 BAIMA, PROMISE L MUSIC ARRANGER Ot 785.9 10/30/2014 BAIMA, PROMISE L MUSIC ARRANGER Ot 786.09 05/12/2015 BAIMA, PROMISE L MUSIC ARRANGER Ot 272.4 05/13/2015 BAIMA, PROMISE L MUSIC ARRANGER Ot 272.4 05/13/2015 BAIMA, PROMISE L MUSIC ARRANGER Ot 272.4 05/28/2015 BAIMA, PROMISE L MUSIC ARRANGER Ot 272.4 06/03/2015 BAIMA, PROMISE L MUSIC ARRANGER Ot 272.4 06/26/2015 Ot 733.00 06/26/2015 Ot V76.12 06/26/2015 Ot 401.9 06/26/2015 Ot 701.1 06/26/2015 Ot 791.9 06/26/2015 Ot V49.81 06/26/2015 Ot V72.84 06/26/2015 Ot 272.4 06/26/2015 Ot 397.0 06/26/2015 Ot 401.9 06/26/2015 Ot 424.0 06/26/2015 Ot 447.9 06/26/2015 Ot 785.1 06/26/2015 Ot 786.09 06/26/2015 Ot 272.4 06/26/2015 Ot 401.9 06/26/2015 Ot 443.9 06/26/2015 Ot 785.1 06/26/2015 Ot 786.09 06/26/2015 Ot 272.4 06/26/2015 Ot 401.9 06/26/2015 Ot 443.9 06/26/2015 Ot 785.1 06/26/2015 Ot 786.09 06/26/2015 Ot V72.84 06/26/2015 Ot V72.84 06/26/2015 Ot V72.84 06/26/2015 ELIDIA MOSHER, RUSSELL More Ot 733.90 06/26/2015 ELIDIA MOSHER, RUSSELL Aguero Ot V76.12 06/26/2015 BAIMA, PROMISE L MUSIC ARRANGER Ot 272.4 06/26/2015 JORGE A MOSHER, MAHSA Ford Ot V72.84 06/26/2015 BAIMA, PROMISE L MUSIC ARRANGER Ot 272.4 06/26/2015 ADEN FATEMEH Rafa HELIO Ot V76.12 06/26/2015 BAIMA, PROMISE L MUSIC ARRANGER Ot 272.4 06/26/2015 BAIMA, PROMISE L MUSIC ARRANGER Ot 305.1 06/26/2015 BAIMA, PROMISE L MUSIC ARRANGER Ot 401.9 06/26/2015 BAIMA, PROMISE L MUSIC ARRANGER Ot 443.9 06/26/2015 BAIMA, PROMISE L MUSIC ARRANGER Ot 785.9 06/26/2015 BAIMA, PROMISE L MUSIC ARRANGER Ot 786.09 06/26/2015 BAIMA, PROMISE L MUSIC ARRANGER Ot 272.4 07/21/2015 MADLTHOMASA L MUSIC ARRANGER Ot Z12.31 08/04/2015 MADL, MANI L MUSIC ARRANGER Ot Z12.31 11/05/2015 Ot 733.00 11/05/2015 Ot V76.12 11/05/2015 Ot 401.9 11/05/2015 Ot 701.1 11/05/2015 Ot 791.9 11/05/2015 Ot V49.81 11/05/2015 Ot V72.84 11/05/2015 Ot 272.4 11/05/2015 Ot 397.0 11/05/2015 Ot 401.9 11/05/2015 Ot 424.0 11/05/2015 Ot 447.9 11/05/2015 Ot 785.1 11/05/2015 Ot 786.09 11/05/2015 Ot 272.4 11/05/2015 Ot 401.9 11/05/2015 Ot 443.9 11/05/2015 Ot 785.1 11/05/2015 Ot 786.09 11/05/2015 Ot 272.4 11/05/2015 Ot 401.9 11/05/2015 Ot 443.9 11/05/2015 Ot 785.1 11/05/2015 Ot 786.09 11/05/2015 Ot V72.84 11/05/2015 Ot V72.84 11/05/2015 Ot V72.84 11/05/2015 ELIDIA MOSHER, RUSSELL Aguero Ot 733.90 11/05/2015 ELIDIA MOSHER, RUSSELL More Ot V76.12 11/05/2015 BAIMA, PROMISE L MUSIC ARRANGER Ot 272.4 11/05/2015 JORGE A MOSHER, MAHSA Ford Ot V72.84 11/05/2015 BAIMA, PROMISE L MUSIC ARRANGER Ot 272.4 11/05/2015 ADEN FATEMEH Rafa HELIO Ot V76.12 11/05/2015 BAIMA, PROMISE L MUSIC ARRANGER Ot 272.4 11/05/2015 BAIMA, PROMISE L MUSIC ARRANGER Ot 305.1 11/05/2015 BAIMA, PROMISE L MUSIC ARRANGER Ot 401.9 11/05/2015 BAIMA, PROMISE L MUSIC ARRANGER Ot 443.9 11/05/2015 BAIMA, PROMISE L MUSIC ARRANGER Ot 785.9 11/05/2015 BAIMA, PROMISE L MUSIC ARRANGER Ot 786.09 11/05/2015 BAIMA, PROMISE L MUSIC ARRANGER Ot 272.4 11/05/2015 MADL, MANI L MUSIC ARRANGER Ot Z12.31 11/26/2015 MADL, MANI L MUSIC ARRANGER Ot M81.0 12/07/2015 MADL, MANI L MUSIC ARRANGER Ot M81.0 08/24/2016 Ot 733.00 OSTEOPOROSIS NOS 08/24/2016 Ot V76.12 OTH SCREEN MAMMO-MALIGN NEOPLASM OF AC 08/24/2016 Ot 401.9 HYPERTENSION NOS 08/24/2016 Ot 701.1 KERATODERMA, ACQUIRED 08/24/2016 Ot 791.9 ABN URINE FINDINGS NEC 08/24/2016 Ot V49.81 ASYMPT POSTMENOPAUSAL STATUS (AGE-RELATE 08/24/2016 Ot V72.84 EXAM PRE-OPERATIVE NOS 08/24/2016 Ot 272.4 HYPERLIPIDEMIA NEC/NOS 08/24/2016 Ot 397.0 TRICUSPID VALVE DISEASE 08/24/2016 Ot 401.9 HYPERTENSION NOS 08/24/2016 Ot 424.0 MITRAL VALVE DISORDER 08/24/2016 Ot 447.9 ARTERIAL DISEASE NOS 08/24/2016 Ot 785.1 PALPITATIONS 08/24/2016 Ot 786.09 RESPIRATORY ABNORM NEC 08/24/2016 Ot 272.4 HYPERLIPIDEMIA NEC/NOS 08/24/2016 Ot 401.9 HYPERTENSION NOS 08/24/2016 Ot 443.9 PERIPH VASCULAR DIS NOS 08/24/2016 Ot 785.1 PALPITATIONS 08/24/2016 Ot 786.09 RESPIRATORY ABNORM NEC 08/24/2016 Ot 272.4 HYPERLIPIDEMIA NEC/NOS 08/24/2016 Ot 401.9 HYPERTENSION NOS 08/24/2016 Ot 443.9 PERIPH VASCULAR DIS NOS 08/24/2016 Ot 785.1 PALPITATIONS 08/24/2016 Ot 786.09 RESPIRATORY ABNORM NEC 08/24/2016 Ot V72.84 EXAM PRE-OPERATIVE NOS 08/24/2016 Ot V72.84 EXAM PRE-OPERATIVE NOS 08/24/2016 Ot V72.84 EXAM PRE-OPERATIVE NOS 08/24/2016 ELIDIA MOSHER, RUSSELL Aguero Ot 733.90 BONE CARTILAGE DIS NOS 08/24/2016 ELIDIA MOSHER, RUSSELL Aguero Ot V76.12 OTH SCREEN MAMMO-MALIGN NEOPLASM OF AC 08/24/2016 BAIMA PROMISE L MUSIC ARRANGER Ot 272.4 HYPERLIPIDEMIA NEC/NOS 08/24/2016 JORGE A MOSHER, MAHSA Ford Ot V72.84 EXAM PRE-OPERATIVE NOS 08/24/2016 BAIMA, PROMISE L MUSIC ARRANGER Ot 272.4 HYPERLIPIDEMIA NEC/NOS 08/24/2016 FATEMEH SAMANIEGO APRN Ot V76.12 OTH SCREEN MAMMO-MALIGN NEOPLASM OF AC 08/24/2016 BAIMA, PROMISE L MUSIC ARRANGER Ot 272.4 HYPERLIPIDEMIA NEC/NOS 08/24/2016 BAIMA, PROMISE L MUSIC ARRANGER Ot 305.1 TOBACCO USE DISORDER 08/24/2016 BAIMA, PROMISE L MUSIC ARRANGER Ot 401.9 HYPERTENSION NOS 08/24/2016 BAIMA, PROMISE L MUSIC ARRANGER Ot 443.9 PERIPH VASCULAR DIS NOS 08/24/2016 BAIMA, PROMISE L MUSIC ARRANGER Ot 785.9 CARDIOVAS SYS SYMP NEC 08/24/2016 BAIMA, PROMISE L MUSIC ARRANGER Ot 786.09 RESPIRATORY ABNORM NEC 08/24/2016 BAIMA, PROMISE L MUSIC ARRANGER Ot 272.4 HYPERLIPIDEMIA NEC/NOS 08/24/2016 MANI SOARES MUSIC ARRANGER Ot Z12.31 ENCNTR SCREEN MAMMOGRAM FOR MALIGNANT NE 08/24/2016 RODGER, MANI Mitchell MUSIC ARRANGER Ot M81.0 AGE-RELATED OSTEOPOROSIS W/O CURRENT PAT 08/25/2016 MADL, MANI Mitchell MUSIC ARRANGER Ot Z12.31 ENCNTR SCREEN MAMMOGRAM FOR MALIGNANT NE 08/25/2016 MADL, MANI Mitchell MUSIC ARRANGER Ot Z12.31 ENCNTR SCREEN MAMMOGRAM FOR MALIGNANT NE 08/25/2016 MADL, MANI L MUSIC ARRANGER Ot Z12.31 ENCNTR SCREEN MAMMOGRAM FOR MALIGNANT NE 08/25/2016 MADL, MANI L MUSIC ARRANGER Ot Z12.31 ENCNTR SCREEN MAMMOGRAM FOR MALIGNANT NE 09/15/2016 MADL, MANI L MUSIC ARRANGER Ot Z12.31 ENCNTR SCREEN MAMMOGRAM FOR MALIGNANT NE 2016 MADL, MANI Mitchell MUSIC ARRANGER Ot Z12.31 ENCNTR SCREEN MAMMOGRAM FOR MALIGNANT NE 09/23/2016 CHARLOTTE MOSHER FACC, KAYLIN FACP CCDS Ot 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 09/27/2016 MADL, MANI L MUSIC ARRANGER Ot R92.8 OTH ABN AND INCONCLUSIVE FINDINGS ON DX 09/28/2016 CHARLOTTE MOSHER FACC, KAYLIN FACP CCDS Ot 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 10/14/2016 MADL, MANI L MUSIC ARRANGER Ot R92.8 OTH ABN AND INCONCLUSIVE FINDINGS ON DX 10/21/2016 CHARLOTTE MOSHER FACC, KAYLIN FACP CCDS Ot E78.4 OTHER HYPERLIPIDEMIA 10/21/2016 CHARLOTTE MOSHER FACC, KAYLIN FACP CCDS Ot I10 ESSENTIAL (PRIMARY) HYPERTENSION 10/21/2016 CHARLOTTE MOSHER FACC, KAYLIN FACP CCDS Ot 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 10/21/2016 CHARLOTTE MOSHER FACC, KAYLIN FACP CCDS Ot 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 10/21/2016 CHARLOTTE MOSHER FACC, ALI FACP CCDS Ot Z72.0 TOBACCO USE 10/24/2016 MADL, MANI L MUSIC ARRANGER Ot R92.8 OTH ABN AND INCONCLUSIVE FINDINGS ON DX 10/28/2016 KAYLIN PORTER MD, FACC FACP CCDS Ot E78.4 OTHER HYPERLIPIDEMIA 10/28/2016 CHARLOTTE MOSHER FACC, ALI FACP CCDS Ot I10 ESSENTIAL (PRIMARY) HYPERTENSION 10/28/2016 CHARLOTTE MOSHER FACC, ALI FACP CCDS Ot 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 10/28/2016 CHARLOTTE MOSHER FACC, ALI FACP CCDS Ot 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 [facility] 10/28/2016 CHARLOTTE MOSHER FACC, ALI FACP CCDS Ot Z72.0 TOBACCO USE 11/08/2016 CHARLOTTE MOSHER FACC, ALI FACP CCDS Ot E78.5 HYPERLIPIDEMIA, UNSPECIFIED 11/08/2016 CHARLOTTE MOSHER FACC, ALI FACP CCDS Ot H35.30 UNSPECIFIED MACULAR DEGENERATION 11/08/2016 CHARLOTTE MOSHER FACC, ALI FACP CCDS Ot I10 ESSENTIAL (PRIMARY) HYPERTENSION 11/08/2016 CHARLOTTE MOSHER FACC, ALI FACP CCDS Ot I70.0 ATHEROSCLEROSIS OF AORTA 11/08/2016 CHARLOTTE MOSHER FACVaishali, ALI FACP CCDS Ot 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 [facility] 11/08/2016 CHARLOTTE MOSHER FACC, ALI FACP CCDS Ot I70.92 CHRONIC TOTAL OCCLUSION OF ARTERY OF THE 11/08/2016 CHARLOTTE MOSHER FACC, ALI FACP CCDS Ot R06.09 OTHER FORMS OF DYSPNEA 11/08/2016 CHARLOTTE MOSHER FACC, ALI FACP CCDS Ot Z72.0 TOBACCO USE 11/08/2016 CHARLOTTE MESSERC, ALI FACP CCDS Ot Z79.899 OTHER ALF (CURRENT) DRUG THERAPY 11/08/2016 CHARLOTTE MOSHER FACC, ALI FACP CCDS Ot Z95.820 PERIPHERAL VASCULAR ANGIOPLASTY STATUS W 11/18/2016 More FERNANDEZ MD Ot I10 ESSENTIAL (PRIMARY) HYPERTENSION 11/18/2016 More FERNANDEZ MD Ot 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 [facility] 11/18/2016 More FERNANDEZ MD Ot I70.92 CHRONIC TOTAL OCCLUSION OF ARTERY OF THE 11/18/2016 More FERNANDEZ MD Ot Z72.0 TOBACCO USE 11/18/2016 More FERNANDEZ MD Ot Z79.899 OTHER ALF (CURRENT) DRUG THERAPY 11/28/2016 CHARLOTTE MESSERC, ALI FACP CCDS Ot E78.5 HYPERLIPIDEMIA, UNSPECIFIED 11/28/2016 CHARLOTTE MOSHER FACC, ALI FACP CCDS Ot H35.30 UNSPECIFIED MACULAR DEGENERATION 11/28/2016 CHARLOTTE MOSHER FACC, ALI FACP CCDS Ot I10 ESSENTIAL (PRIMARY) HYPERTENSION 11/28/2016 CHARLOTTE MOSHER FACC, ALI FACP CCDS Ot I70.0 ATHEROSCLEROSIS OF AORTA 11/28/2016 CHARLOTTE MOSHER FACC, ALI FACP CCDS Ot 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 11/28/2016 CHARLOTTE MOSHER FACC, ALI FACP CCDS Ot I70.92 CHRONIC TOTAL OCCLUSION OF ARTERY OF THE 11/28/2016 CHARLOTTE MOSHER FACC, ALI FACP CCDS Ot R06.09 OTHER FORMS OF DYSPNEA 11/28/2016 CHARLOTTE MOSHER FACC, ALI FACP CCDS Ot Z72.0 TOBACCO USE 11/28/2016 CHARLOTTE MOSHER FACC, ALI FACP CCDS Ot Z79.899 OTHER ALF (CURRENT) DRUG THERAPY 11/28/2016 CHARLOTTE MOSHER FACC, ALI FACP CCDS Ot Z95.820 PERIPHERAL VASCULAR ANGIOPLASTY STATUS W 12/08/2016 More FERNANDEZ MD Ot I10 ESSENTIAL (PRIMARY) HYPERTENSION 12/08/2016 More FERNANDEZ MD Ot 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 12/08/2016 More FERNANDEZ MD Ot I70.92 CHRONIC TOTAL OCCLUSION OF ARTERY OF THE 12/08/2016 More FERNANDEZ MD Ot Z72.0 TOBACCO USE 12/08/2016 More FERNANDEZ MD Ot 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 01/06/2017 More FERNANDEZ MD Ot I10 ESSENTIAL (PRIMARY) HYPERTENSION 01/06/2017 More FERNANDEZ MD Ot 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 01/06/2017 More FERNANDEZ MD Ot I97.638 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 01/06/2017 More FERNANDEZ MD Ot Z72.0 TOBACCO USE 01/06/2017 More FERNANDEZ MD Ot Z79.02 RN HOUSE SUPERVISOR (CURRENT) USE OF ANTITHROMBOTI 01/06/2017 More FERNANDEZ MD Ot 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 01/12/2017 More FERNANDEZ MD Ot I10 ESSENTIAL (PRIMARY) HYPERTENSION 01/12/2017 More FERNANDEZ MD Ot 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 01/12/2017 More FERNANDEZ MD Ot I97.638 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 01/12/2017 More FERNANDEZ MD Ot Z72.0 TOBACCO USE 01/12/2017 More FERNANDEZ MD Ot Z79.02 ALF (CURRENT) USE OF ANTITHROMBOTI 01/12/2017 More FERNANDEZ MD Ot 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 01/29/2017 More FERNANDEZ MD Ot I10 ESSENTIAL (PRIMARY) HYPERTENSION 01/29/2017 More FERNANDEZ MD Ot 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 [facility] 01/29/2017 More FERNANDEZ MD Ot I97.638 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 01/29/2017 More FERNANDEZ MD Ot Z72.0 TOBACCO USE 01/29/2017 More FERNANDEZ MD Ot Z79.02 RN HOUSE SUPERVISOR (CURRENT) USE OF ANTITHROMBOTI 01/29/2017 More FERNANDEZ MD Ot 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 02/08/2017 More FERNANDEZ MD Ot I10 ESSENTIAL (PRIMARY) HYPERTENSION 02/08/2017 More FERNANDEZ MD Ot 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 02/08/2017 More FERNANDEZ MD Ot I97.638 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 02/08/2017 More FERNANDEZ MD Ot Z72.0 TOBACCO USE 02/08/2017 JIM MOSHER, More [place] Ot Z79.02 ALF (CURRENT) USE OF ANTITHROMBOTI 02/08/2017 JIM MOSHER, More [place] Ot Z79.899 OTHER ALF (CURRENT) DRUG THERAPY 02/09/2017 More FERNANDEZ MD, Ot I10 ESSENTIAL (PRIMARY) HYPERTENSION 02/09/2017 JIM MOSHER, More [place] Ot 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 02/09/2017 JIM MOSHER, More [place] Ot I97.638 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 02/09/2017 More FERNANDEZ MD, Ot Z72.0 TOBACCO USE 02/09/2017 JIM MOSHER, More [place] Ot Z79.02 ALF (CURRENT) USE OF ANTITHROMBOTI 02/09/2017 More FERNANDEZ MD, Ot 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 02/13/2017 STAS MASON DO, Ot F17.210 NICOTINE DEPENDENCE, CIGARETTES, UNCOMPL 02/13/2017 STAS MASON DO, Ot I10 ESSENTIAL (PRIMARY) HYPERTENSION 02/13/2017 STAS MASON DO, Ot I73.9 PERIPHERAL VASCULAR DISEASE, UNSPECIFIED 02/13/2017 STAS MASON DO, Ot J44.9 CHRONIC OBSTRUCTIVE PULMONARY DISEASE, U 02/13/2017 STAS MASON DO, Ot S50.312A ABRASION OF LEFT ELBOW, INITIAL ENCOUNTE 02/13/2017 STAS MASON DO Ot S80.02XA CONTUSION OF LEFT KNEE, INITIAL ENCOUNTE 02/13/2017 STAS MASON DO, Ot S89.92XA UNSPECIFIED INJURY OF LEFT LOWER LEG, IN 02/13/2017 STAS MASON DO, Ot W01.0XXA FALL SAME LEV FROM SLIP/TRIP W/O STRIKE 02/13/2017 STAS AMSON DO, Ot Y93.K1 ACTIVITY, WALKING AN ANIMAL 02/13/2017 STAS MASON DO, Ot Y99.8 OTHER EXTERNAL CAUSE STATUS 02/13/2017 STAS MASON DO, Ot Z23 ENCOUNTER FOR IMMUNIZATION 02/13/2017 STAS MASON DO Ot Z79.82 ALF (CURRENT) USE OF ASPIRIN 02/13/2017 STAS MASON DO Ot 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 02/13/2017 STAS MASON DO Ot Z95.828 PRESENCE OF OTHER VASCULAR IMPLANTS AND 02/16/2017 MADMANI Mitchell MUSIC ARRANGER Ot Z72.0 TOBACCO USE 02/20/2017 MADLMANI MUSIC ARRANGER Ot Z72.0 TOBACCO USE 02/22/2017 MADL, MANI Mitchell MUSIC ARRANGER Ot Z72.0 TOBACCO USE 02/24/2017 MADL, MANI Mitchell MUSIC ARRANGER Ot Z72.0 TOBACCO USE 02/27/2017 MADL, MANI Mitchell MUSIC ARRANGER Ot Z72.0 TOBACCO USE Procedures Code [place] [address] ROUTINE VENIPUNCTURE 11/12/2012 53344 UA LONG DIP 11/12 74974 A1C (IN-HOUSE) 15163 CBC 11/12/2012 87144 CMP 11/12/2012 52052 LIPID PANEL 11/12 6119887 GFR CALC (RESULT ONLY) 11/12/2012 67353 VITAMIN D 25-HYDROXY (D2,D3, TOTAL) 11/12/2012 98413 TSH 11/12/2012 81006 ROUTINE VENIPUNCTURE 04/25/2013 98113 LIPID PANEL 04/25 84692 TSH 04/25/2013 G0008 FLU ADMINISTRATION (MEDICARE ONLY) 05/28/2013 88318 CRYOTHERAPY OF SKIN 03/27/2014 63797 MAMMOGRAM, SCREENING 05/26/2014 Results Test Result Range Automated blood complete blood count (hemogram) panel - 11/08/16 07:30 Blood leukocytes automated count (number/volume) 6.3 10*3/ uL 4.3-11.0 Blood erythrocytes automated count (number/volume) 5.39 10*6 /uL 4.35-5.85 Venous blood hemoglobin measurement (mass/volume) 15.9 g/dL 11.5-16.0 Blood hematocrit (volume fraction) 48 % 35-52 Automated erythrocyte mean corpuscular volume 89 [foz_us] 80-99 Automated erythrocyte mean corpuscular hemoglobin (mass per erythrocyte) 30 pg 25-34 Automated erythrocyte mean corpuscular hemoglobin concentration measurement ( mass/volume) 33 g/dL 32-36 Automated erythrocyte distribution width ratio 14.2 % 10.0-14.5 Automated blood platelet count (count/volume) 227 10*3/uL 130-400 Automated blood platelet mean volume measurement 10.2 [foz_ us] 7.4-10.4 PT panel in platelet poor plasma by coagulation assay - 11/08/16 07:30 Prothrombin time (PT) in platelet poor plasma by coagulation assay 11.8 s 12.2-14.7 INR in platelet poor plasma or blood by coagulation assay 0.9 0.8-1.4 Activated partial thromboplastin time (aPTT) in platelet poor plasma bycoagulation assay - 11/08/16 07:30 Activated partial thromboplastin time (aPTT) in platelet poor plasma bycoagulation assay 29 s 24-35 Comprehensive metabolic panel - 11/08/16 07:30 Serum or plasma sodium measurement (moles/volume) 143 mmol/ L 135-145 Serum or plasma potassium measurement (moles/volume) 4.0 mmol/L 3.6-5.0 Serum or plasma chloride measurement (moles/volume) 105 mmol /L 98-107 Carbon dioxide 28 mmol/L 21-32 Serum or plasma anion gap determination (moles/volume) 10 mmol/L 5-14 Serum or plasma urea nitrogen measurement (mass/volume) 16 mg/dL 7-18 Serum or plasma creatinine measurement (mass/volume) 0.86 mg /dL 0.60-1.30 Serum or plasma urea nitrogen/creatinine mass ratio 19 NRG Serum or plasma creatinine measurement with calculation of estimated glomerular filtration rate > NRG Serum or plasma glucose measurement (mass/volume) 112 mg/dL 70-105 Serum or plasma calcium measurement (mass/volume) 9.1 mg/dL 8.5-10.1 Serum or plasma total bilirubin measurement (mass/volume) 0.4 mg/dL 0.1-1.0 Serum or plasma alkaline phosphatase measurement (enzymatic activity/volume) 43 U/L 40-136 Serum or plasma aspartate aminotransferase measurement (enzymatic activity/ volume) 22 U/L 5-34 Serum or plasma alanine aminotransferase measurement (enzymatic activity/volume ) 22 U/L 0-55 Serum or plasma protein measurement (mass/volume) 7.0 g/dL 6.4-8.2 Serum or plasma albumin measurement (mass/volume) 4.2 g/dL 3.2-4.5 Lipid 1996 panel - 11/08/16 07:30 Serum or plasma triglyceride measurement (mass/volume) 130 mg/dL <150 Serum or plasma cholesterol measurement (mass/volume) 159 mg /dL < 200 Serum or plasma cholesterol in HDL measurement (mass/volume) 56 mg/dL 40-60 Cholesterol in LDL [mass/volume] in serum or plasma by direct assay 76 mg/dL 1-129 Serum or plasma cholesterol in VLDL measurement (mass/volume) 26 mg/dL 5-40 Methicillin resistant Staphylococcus aureus (MRSA) screening culture - 07:30 Methicillin resistant Staphylococcus aureus (MRSA) screening culture NEG NRG PT panel in platelet poor plasma by coagulation assay - 11/17/16 09:31 Prothrombin time (PT) in platelet poor plasma by coagulation assay 12.2 s 12.2-14.7 INR in platelet poor plasma or blood by coagulation assay 0.9 0.8-1.4 Activated partial thromboplastin time (aPTT) in platelet poor plasma bycoagulation assay - 11/17/16 09:31 Activated partial thromboplastin time (aPTT) in platelet poor plasma bycoagulation assay 31 s 24-35 Comprehensive metabolic panel - 11/17/16 09:31 Serum or plasma sodium measurement (moles/volume) 142 mmol/ L 135-145 Serum or plasma potassium measurement (moles/volume) 4.1 mmol/L 3.6-5.0 Serum or plasma chloride measurement (moles/volume) 103 mmol /L 98-107 Carbon dioxide 29 mmol/L 21-32 Serum or plasma anion gap determination (moles/volume) 10 mmol/L 5-14 Serum or plasma urea nitrogen measurement (mass/volume) 21 mg/dL 7-18 Serum or plasma creatinine measurement (mass/volume) 1.01 mg /dL 0.60-1.30 Serum or plasma urea nitrogen/creatinine mass ratio 21 NRG Serum or plasma creatinine measurement with calculation of estimated glomerular filtration rate 54 NRG Serum or plasma glucose measurement (mass/volume) 89 mg/dL 70-105 Serum or plasma calcium measurement (mass/volume) 9.6 mg/dL 8.5-10.1 Serum or plasma total bilirubin measurement (mass/volume) 0.5 mg/dL 0.1-1.0 Serum or plasma alkaline phosphatase measurement (enzymatic activity/volume) 47 U/L 40-136 Serum or plasma aspartate aminotransferase measurement (enzymatic activity/ volume) 18 U/L 5-34 Serum or plasma alanine aminotransferase measurement (enzymatic activity/volume ) 17 U/L 0-55 Serum or plasma protein measurement (mass/volume) 7.2 g/dL 6.4-8.2 Serum or plasma albumin measurement (mass/volume) 4.6 g/dL 3.2-4.5 Methicillin resistant Staphylococcus aureus (MRSA) screening culture - 09:31 Methicillin resistant Staphylococcus aureus (MRSA) screening culture NEG NRG Activated partial thromboplastin time (aPTT) in platelet poor plasma bycoagulation assay - 11/17/16 18:25 Activated partial thromboplastin time (aPTT) in platelet poor plasma bycoagulation assay 90 s 24-35 Activated partial thromboplastin time (aPTT) in platelet poor plasma bycoagulation assay - 11/17/16 20:25 Activated partial thromboplastin time (aPTT) in platelet poor plasma bycoagulation assay 33 s 24-35 Whole blood basic metabolic panel - 11/18/16 03:50 Serum or plasma sodium measurement (moles/volume) 140 mmol/ L 135-145 Serum or plasma potassium measurement (moles/volume) 4.1 mmol/L 3.6-5.0 Serum or plasma chloride measurement (moles/volume) 107 mmol /L 98-107 Carbon dioxide 20 mmol/L 21-32 Serum or plasma anion gap determination (moles/volume) 13 mmol/L 5-14 Serum or plasma urea nitrogen measurement (mass/volume) 16 mg/dL 7-18 Serum or plasma creatinine measurement (mass/volume) 0.74 mg /dL 0.60-1.30 Serum or plasma urea nitrogen/creatinine mass ratio 22 NRG Serum or plasma creatinine measurement with calculation of estimated glomerular filtration rate > NRG Serum or plasma glucose measurement (mass/volume) 81 mg/dL 70-105 Serum or plasma calcium measurement (mass/volume) 8.2 mg/dL 8.5-10.1 Automated blood complete blood count (hemogram) panel - 11/18/16 05:35 Blood leukocytes automated count (number/volume) 6.5 10*3/ uL 4.3-11.0 Blood erythrocytes automated count (number/volume) 4.43 10*6 /uL 4.35-5.85 Venous blood hemoglobin measurement (mass/volume) 13.0 g/dL 11.5-16.0 Blood hematocrit (volume fraction) 40 % 35-52 Automated erythrocyte mean corpuscular volume 90 [foz_us] 80-99 Automated erythrocyte mean corpuscular hemoglobin (mass per erythrocyte) 29 pg 25-34 Automated erythrocyte mean corpuscular hemoglobin concentration measurement ( mass/volume) 33 g/dL 32-36 Automated erythrocyte distribution width ratio 14.0 % 10.0-14.5 Automated blood platelet count (count/volume) 201 10*3/uL 130-400 Automated blood platelet mean volume measurement 10.5 [foz_ us] 7.4-10.4 Automated blood complete blood count (hemogram) panel - 01/05/17 07:55 Blood leukocytes automated count (number/volume) 6.9 10*3/ uL 4.3-11.0 Blood erythrocytes automated count (number/volume) 5.19 10*6 /uL 4.35-5.85 Venous blood hemoglobin measurement (mass/volume) 15.0 g/dL 11.5-16.0 Blood hematocrit (volume fraction) 47 % 35-52 Automated erythrocyte mean corpuscular volume 90 [foz_us] 80-99 Automated erythrocyte mean corpuscular hemoglobin (mass per erythrocyte) 29 pg 25-34 Automated erythrocyte mean corpuscular hemoglobin concentration measurement ( mass/volume) 32 g/dL 32-36 Automated erythrocyte distribution width ratio 14.2 % 10.0-14.5 Automated blood platelet count (count/volume) 242 10*3/uL 130-400 Automated blood platelet mean volume measurement 10.1 [foz_ us] 7.4-10.4 Complete urinalysis with reflex to culture - 01/05/17 07:55 Urine color determination YELLOW NRG Urine clarity determination CLEAR NRG Urine pH measurement by test strip 7 5- 9 Specific gravity of urine by test strip 1.020 1.016-1.022 Urine protein assay by test strip, semi-quantitative NEGATIVE NEGATIVE Urine glucose detection by automated test strip NEGATIVE NEGATIVE Erythrocytes detection in urine sediment by light microscopy NEGATIVE NEGATIVE Urine ketones detection by automated test strip NEGATIVE NEGATIVE Urine nitrite detection by test strip NEGATIVE NEGATIVE Urine total bilirubin detection by test strip NEGATIVE NEGATIVE Urine urobilinogen measurement by automated test strip (mass/volume) NORMAL NORMAL Urine leukocyte esterase detection by dipstick 3+ NEGATIVE Automated urine sediment erythrocyte count by microscopy (number/high power field) NONE NRG Automated urine sediment leukocyte count by microscopy (number/high power field ) [HPF] NRG Bacteria detection in urine sediment by light microscopy MODERATE NRG Squamous epithelial cells detection in urine sediment by light microscopy 10-25 NRG Crystals detection in urine sediment by light microscopy PRESENT NRG Casts detection in urine sediment by light microscopy NONE NRG Mucus detection in urine sediment by light microscopy NEGATIVE NRG Complete urinalysis with reflex to culture YES NRG Amorphous sediment detection in urine sediment by light microscopy RARE ERNIE PHOSPHATE NRG PT panel in platelet poor plasma by coagulation assay - 01/05/17 07:55 Prothrombin time (PT) in platelet poor plasma by coagulation assay 11.8 s 12.2-14.7 INR in platelet poor plasma or blood by coagulation assay 0.9 0.8-1.4 Activated partial thromboplastin time (aPTT) in platelet poor plasma bycoagulation assay - 01/05/17 07:55 Activated partial thromboplastin time (aPTT) in platelet poor plasma bycoagulation assay 23 s 24-35 Comprehensive metabolic panel - 01/05/17 07:55 Serum or plasma sodium measurement (moles/volume) 144 mmol/ L 135-145 Serum or plasma potassium measurement (moles/volume) 3.9 mmol/L 3.6-5.0 Serum or plasma chloride measurement (moles/volume) 103 mmol /L 98-107 Carbon dioxide 31 mmol/L 21-32 Serum or plasma anion gap determination (moles/volume) 10 mmol/L 5-14 Serum or plasma urea nitrogen measurement (mass/volume) 19 mg/dL 7-18 Serum or plasma creatinine measurement (mass/volume) 0.85 mg /dL 0.60-1.30 Serum or plasma urea nitrogen/creatinine mass ratio 22 NRG Serum or plasma creatinine measurement with calculation of estimated glomerular filtration rate > NRG Serum or plasma glucose measurement (mass/volume) 102 mg/dL 70-105 Serum or plasma calcium measurement (mass/volume) 9.4 mg/dL 8.5-10.1 Serum or plasma total bilirubin measurement (mass/volume) 0.4 mg/dL 0.1-1.0 Serum or plasma alkaline phosphatase measurement (enzymatic activity/volume) 53 U/L 40-136 Serum or plasma aspartate aminotransferase measurement (enzymatic activity/ volume) 18 U/L 5-34 Serum or plasma alanine aminotransferase measurement (enzymatic activity/volume ) 15 U/L 0-55 Serum or plasma protein measurement (mass/volume) 7.3 g/dL 6.4-8.2 Serum or plasma albumin measurement (mass/volume) 4.5 g/dL 3.2-4.5 Methicillin resistant Staphylococcus aureus (MRSA) screening culture - 07:55 Methicillin resistant Staphylococcus aureus (MRSA) screening culture NEG NRG Bacterial urine culture - 01/05/17 07:55 Bacterial urine culture [id number] NRG COLONY COUNT 10,000/ML - 100,000/ML NRG FTX;REPORTABLE CURRENT NOMENCLATURE: MYROIDES SPP NRG FREE TEXT ENTRY 2 SENSITIVITY REPORTED 01/08 13:48 NRG Bacterial susceptibility panel - 01/05/17 07:55 Gentamicin susceptibility test by minimum inhibitory concentration <= NRG Trimethoprim/sulfamethoxazole susceptibility test by minimum inhibitoryconcentration <= NRG Tobramycin susceptibility test by minimum inhibitory concentration <= NRG Cefazolin susceptibility test by minimum inhibitory concentration <= NRG Ceftriaxone susceptibility test by minimum inhibitory concentration <= NRG Piperacillin/tazobactam susceptibility test by minimum inhibitory concentration <= NRG Ciprofloxacin susceptibility test by minimum inhibitory concentration <= NRG Meropenem susceptibility test by minimum inhibitory concentration <= NRG Nitrofurantoin susceptibility test by minimum inhibitory concentration <= NRG Aztreonam susceptibility test by minimum inhibitory concentration <= NRG Bacterial susceptibility panel - 01/05/17 07:55 Gentamicin susceptibility test by minimum inhibitory concentration >= NRG Trimethoprim/sulfamethoxazole susceptibility test by minimum inhibitoryconcentration 40 NRG Tobramycin susceptibility test by minimum inhibitory concentration >= NRG Piperacillin/tazobactam susceptibility test by minimum inhibitory concentration <= NRG Ciprofloxacin susceptibility test by minimum inhibitory concentration <= NRG Meropenem susceptibility test by minimum inhibitory concentration <= NRG Aztreonam susceptibility test by minimum inhibitory concentration 2 NRG Automated blood complete blood count (hemogram) panel - 01/05/17 19:34 Blood leukocytes automated count (number/volume) 9.1 10*3/ uL 4.3-11.0 Blood erythrocytes automated count (number/volume) 4.03 10*6 /uL 4.35-5.85 Venous blood hemoglobin measurement (mass/volume) 11.7 g/dL 11.5-16.0 Blood hematocrit (volume fraction) 37 % 35-52 Automated erythrocyte mean corpuscular volume 92 [foz_us] 80-99 Automated erythrocyte mean corpuscular hemoglobin (mass per erythrocyte) 29 pg 25-34 Automated erythrocyte mean corpuscular hemoglobin concentration measurement ( mass/volume) 32 g/dL 32-36 Automated erythrocyte distribution width ratio 14.1 % 10.0-14.5 Automated blood platelet count (count/volume) 236 10*3/uL 130-400 Automated blood platelet mean volume measurement 10.4 [foz_ us] 7.4-10.4 Automated blood complete blood count (hemogram) panel - 01/06/17 03:40 Blood leukocytes automated count (number/volume) 8.4 10*3/ uL 4.3-11.0 Blood erythrocytes automated count (number/volume) 3.64 10*6 /uL 4.35-5.85 Venous blood hemoglobin measurement (mass/volume) 10.6 g/dL 11.5-16.0 Blood hematocrit (volume fraction) 34 % 35-52 Automated erythrocyte mean corpuscular volume 93 [foz_us] 80-99 Automated erythrocyte mean corpuscular hemoglobin (mass per erythrocyte) 29 pg 25-34 Automated erythrocyte mean corpuscular hemoglobin concentration measurement ( mass/volume) 31 g/dL 32-36 Automated erythrocyte distribution width ratio 14.2 % 10.0-14.5 Automated blood platelet count (count/volume) 200 10*3/uL 130-400 Automated blood platelet mean volume measurement 10.2 [foz_ us] 7.4-10.4 Whole blood basic metabolic panel - 01/06/17 03:40 Serum or plasma sodium measurement (moles/volume) 142 mmol/ L 135-145 Serum or plasma potassium measurement (moles/volume) 4.1 mmol/L 3.6-5.0 Serum or plasma chloride measurement (moles/volume) 113 mmol /L 98-107 Carbon dioxide 19 mmol/L 21-32 Serum or plasma anion gap determination (moles/volume) 10 mmol/L 5-14 Serum or plasma urea nitrogen measurement (mass/volume) 20 mg/dL 7-18 Serum or plasma creatinine measurement (mass/volume) 0.78 mg /dL 0.60-1.30 Serum or plasma urea nitrogen/creatinine mass ratio 26 NRG Serum or plasma creatinine measurement with calculation of estimated glomerular filtration rate > NRG Serum or plasma glucose measurement (mass/volume) 101 mg/dL 70-105 Serum or plasma calcium measurement (mass/volume) 7.4 mg/dL 8.5-10.1 Encounters ACCT No. Visit Date/Time Discharge Status Pt. Type Provider Facility Loc./Unit Complaint [id number] 2014 09:53:00 2014 23: 59:59 CLS Outpatient MANI SOARES APRN [id number] 05/26/2014 10:00:00 05/26/2014 23: 59:59 CLS Outpatient FATEMEH SAMANIEGO APRN [id number] 03/27/2014 10:41:00 03/27/2014 23: 59:59 CLS Outpatient MANI SOARES APRN [id number] 03/27/2014 10:41:00 03/27/2014 23: 59:59 CLS Outpatient MANI SOARES APRN [id number] 11/22/2013 09:49:00 11/22/2013 23: 59:59 CLS Outpatient RUSSELL BRENNER MD [id number] 05/28/2013 09:16:00 05/28/2013 23: 59:59 CLS Outpatient RUSSELL BRENNER MD [id number] 11/12/2012 08:11:00 11/12/2012 23: 59:59 CLS Outpatient RUSSELL BRENNER MD [id number] 10/30/2012 13:56:00 10/30/2012 23: 59:59 CLS Outpatient [id number] 04/25/2013 09:33:00 Document Registration [id number] 12/25/2012 09:49:00 Document Registration
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
[2017-03-14] MEDS ORDERED: ALEN70TA47 PO (10:02)
[2017-03-14] MEDS ORDERED: CLOB50SO RIGHT EAR (10:02)
[2017-03-14] MEDS ORDERED: CLOP75TA28 PO (10:02)
[2017-03-14] MEDS ORDERED: MULT-141 PO (10:02)
[2017-03-14] MEDS ORDERED: DEXA5DRO RIGHT EAR (10:02)
[2017-03-14] MEDS ORDERED: TRAM50TA2 PO (10:02)
[2017-03-14] MEDS ORDERED: PRAV20TA3 PO (10:02)
[2017-03-14] MEDS ORDERED: VERA120T6 PO (10:02)
[2017-03-14] MEDS ORDERED: POTA10TA36 PO (10:02)
[2017-03-14] MEDS ORDERED: FURO40TA4 PO (10:02)
[2017-03-14] MEDS ORDERED: CLOBETASOL PROPIONATE RIGHT EAR PRN (10:30)
[2017-03-14] MEDS ORDERED: CARBAM PEROX/GLYC/PROP 15 ML DROPS (DEBROX) EACH EAR PRN (10:30)
[2017-03-14] MEDS ORDERED: RT-ALBUTEROL SULF 2.5 MG/3 ML PRE-MIX VIAL IH PRN (10:30)
[2017-03-14] MEDS ORDERED: POLYETHYLENE GLYCOL 17 GM (MIRALAX) PACK PO PRN (10:30)
[2017-03-14] MEDS ORDERED: DEXAMETHASONE SOD PHOSPHATE RIGHT EAR PRN (10:30)
[2017-03-14] MEDS ORDERED: CALCIUM CARB + VIT D 600 MG (CALCARB + D) TAB PO SCH (11:00)
[2017-03-14] MEDS ORDERED: diphenhydrAMINE 25 MG TAB (BENADRYL) PO PRN (11:04)
[2017-03-14] MEDS ORDERED: ARTIFICAL TEARS 0.4 ML UNIT DOSE (REFRESH PLUS) OU PRN (11:15)
--- NOTE | 2017-03-14 11:17 | Diagnostic Imaging Report ---
2 views of the left knee. INDICATION: Left knee pain. FINDINGS: No fracture, dislocation or radiopaque foreign body. There is soft tissue swelling anterior to the patellar tendon seen. Distal SFA stent is noted. No significant arthritic changes at the knee joint. IMPRESSION: Prominent soft tissue swelling anterior to the patellar tendon may relate to superficial infrapatellar bursitis or hematoma. Correlate clinically. Dictated by: Dictated on workstation # [id number]
[2017-03-14] MEDS ORDERED: VERAPAMIL 80 MG (ISOPTIN) TAB PO SCH (17:00)
[2017-03-14] MEDS ORDERED: SIMvastatin 10 MG (ZOCOR) TAB PO SCH (21:00)
[2017-03-14] MEDS ORDERED: NON-FORMULARY MEDICATION 1 EA EA (Vit C/E/Zn/Coppr/Lutein/Zeaxan (Preservision Areds 2 Sof PO SCH (21:00)
[2017-03-14] MEDS ORDERED: meTOprolol TARTRATE 25 MG (LOPRESSOR) TABLET PO SCH (21:00)
[2017-03-15] MEDS ORDERED: MULTIVIT W/MINERALS TAB (THERAGRAN M) PO SCH (07:00)
[2017-03-15] MEDS ORDERED: CLOPIDOGREL 75 MG (PLAVIX) TABLET PO SCH (09:00)
[2017-03-15] MEDS ORDERED: FUROSEMIDE 40 MG (LASIX) TAB PO SCH (09:00)
[2017-03-15] MEDS ORDERED: NON-FORMULARY MEDICATION 1 EA EA (Mirabegron (Myrbetriq) 25 MG) PO SCH (09:00)
[2017-03-15] MEDS ORDERED: ASPIRIN 81 MG CHEW (CHILDREN'S ASA) PO SCH (09:00)
[2017-03-15] MEDS ORDERED: KCL 10 MEQ TAB (MICRO K) PO SCH (09:00)
[2017-03-15] MEDS ORDERED: OMEGA 3 (FISH OIL) 1000 MG CAP PO SCH (09:00)
[2017-03-19] MEDS ORDERED: ALENDRONATE SODIUM PO SCH (10:30)
== END 2017-03-14 17:25 | disposition home or self-care (01) ==
LOC: UNDOADMOB 17:12 → 4TH 17:12 → INTOOBSV 17:12 → 4TH 17:12
PROVIDERS: ADMIT Internal Medicine; ATTEND Internal Medicine
DX: S80.02XA Contusion of left knee, initial encounter (principal); M25.462 Effusion, left knee; I10 Essential (primary) hypertension; J44.9 Chronic obstructive pulmonary disease, unspecified; I25.10 Atherosclerotic heart disease of native coronary artery without angina pectoris; I73.9 Peripheral vascular disease, unspecified; F17.210 Nicotine dependence, cigarettes, uncomplicated; Z95.5 Presence of coronary angioplasty implant and graft; W19.XXXA Unspecified fall, initial encounter; Y99.8 Other external cause status
CPT/HCPCS: 36415; 73562; 80053; 82962; 85025; 85652; 86141; 99211; G0378

== ENCOUNTER → 2017-03-23 | Outpatient (CLI) | payer MEDICARE, MEDICAID ==
[~2017-03-23] MED LIST changes: +ALEN70TA47 PO; +CLOB50SO RIGHT EAR; +CLOP75TA28 PO; +DEXA5DRO RIGHT EAR; +FURO40TA4 PO; +MULT-141 PO; +POTA10TA36 PO; +PRAV20TA3 PO; +TRAM50TA2 PO; +VERA120T6 PO
--- NOTE | 2017-03-23 19:58 | Diagnostic Imaging Report ---
PROCEDURE: Lung cancer screening CT chest without contrast. TECHNIQUE: Multiple contiguous axial images were obtained through the chest without the use of intravenous contrast. This is performed with a low-dose protocol. INDICATION: Currently asymptomatic patient with 45 pack years history of smoking COMPARISON: None. FINDINGS: There is upper lobe predominant emphysema. The lungs demonstrate no significant consolidation or mass. There are scattered calcified nodules in the right upper lobe and the right hilum and mediastinum, compatible with calcified granulomas. No suspicious pulmonary nodule is seen. The heart size is normal. Chronologic calcified plaque along the right and left coronary artery branch is seen. There is a tiny pericardial effusion. No pleural effusion. The thoracic aorta is normal in caliber. There is no mediastinal mass or lymphadenopathy. The hilar vessels are not opacified on this unenhanced exam with no obvious hilar mass. No axillary lymphadenopathy is seen. Sections of the upper abdomen appear grossly unremarkable. The osseous structures appear grossly unremarkable. IMPRESSION: 1. No suspicious nodule or mass. 2. There is a tiny pericardial effusion, of uncertain clinical significance. Coronary artery calcified plaque is also seen. 2. Emphysema. Lung Rads Category 2. Benign findings. Recommendations: Annual screening low-dose CT scan. Dictated by: Dictated on workstation # [id number]
== END ==
LOC: RAD 13:28
PROVIDERS: ATTEND Nurse Practitioner Family
DX: J43.9 Emphysema, unspecified (principal); Z72.0 Tobacco use

== ENCOUNTER → 2017-06-26 | Outpatient (CLI) | payer MEDICARE, MEDICAID ==
--- NOTE | 2017-06-26 14:59 | Diagnostic Imaging Report ---
EXAMINATION: Bilateral diagnostic mammogram. The current study was also evaluated with a Computer Aided Detection (CAD) system. Tomography images were performed also in both breasts. INDICATION: Followup left breast calcifications. COMPARISON: 09/26/2016 and 08/24/2016. FINDINGS: The breasts are composed of heterogeneously dense parenchyma which may decrease mammographic sensitivity. There is a group of calcifications in the upper aspect of the left breast which demonstrate minimal change from the previous exam. They have no significant pleomorphism and are likely benign. Other calcifications appear unchanged in both breasts. There is a nodule in the medial aspect of the left breast and a nodule in the upper aspect of the right breast which are stable from multiple prior exams. IMPRESSION: Stable mammographic findings with no significant change in the upper left breast calcifications, likely benign. A followup exam in 12 months is recommended to ensure longer-term stability. ACR BI-RADS Category 3: Probably benign findings. Result letter will be mailed to the patient. Note: At least 10% of breast cancer is not imaged by mammography. Dictated by: Dictated on workstation # [id number]
== END ==
LOC: RAD 13:13
PROVIDERS: ATTEND Nurse Practitioner Family
DX: R92.1 Mammographic calcification found on diagnostic imaging of breast (principal)
CPT/HCPCS: 77066

== ENCOUNTER 2017-12-22 05:38 | Outpatient (CLI) | payer MEDICARE, MEDICAID ==
[~2017-12-22] VITALS: Ht 157.5 cm; Wt 63.7 kg
[2017-12-22] MEDS ORDERED: LISI10TA2 PO (11:36)
[2017-12-22] MEDS ORDERED: BUDE10.2 IH (11:36)
== END 2017-12-22 12:00 ==
LOC: PREOP 05:38
PROVIDERS: ATTEND Surgery
DX: Z01.818 Encounter for other preprocedural examination (principal); Z12.11 Encounter for screening for malignant neoplasm of colon; Z86.010 Personal history of colon polyps

== ENCOUNTER 2017-12-29 10:52 | Day surgery (SDC) | payer MEDICARE, MEDICAID ==
[~2017-12-29] VITALS: Ht 157.5 cm; Wt 63.7 kg
[~2017-12-29 10:52] MED LIST changes: +BUDE10.2 IH; +LISI10TA2 PO
[2017-12-29] MEDS ORDERED: NS IV 500 ML 500 ML IV PRN (11:03)
[2017-12-29] MEDS ORDERED: NS IV 500 ML 500 ML ONE (11:09)
--- NOTE | 2017-12-29 11:33 | Conscious Sedation/ASA ---
Conscious Sedation Pre-Proced Time Reviewed: 11:30 ASA Class: 2 Airway Mallampati Classification: ([facility] appropriate class) I. II. III, IV Lungs Heart ASA score ASA 1: a normal healthy patient ASA 2: a patient with a mild systemic disease (mid diabetes, controlled hypertension, obesity ASA 3: a patient with a severe systemic disease that limits activity (angina , COPD, prior Myocardial infarction) ASA 4: a patient with an incapacitating disease that is a constant threat to life (CHF, renal failure) ASA 5: a moribund patient not expected to survive 24 hrs. (ruptured aneurysm) ASA 6: a declared brain patient whose organs are being harvested. For emergent operations, add the letter E after the classification Grade 2 Sedation Plan: Analgesia, Amnesia, Plan communicated to team members, Discussed options with patient/fam, Discussed risks with patient/fam Note The patient is an appropriate candidate to undergo the planned procedure, sedation, and anesthesia. The patient immediately re-assessed prior to indication. CJ PEGUERO MD Dec 29, 2017 11:33 am
--- NOTE | 2017-12-29 11:34 | Progress Note-Pre Operative ---
Pre-Operative Progress Note H&P Reviewed The H&P was reviewed, patient examined and no changes noted. Date Seen by Provider: Dec 29, 2017 Time Seen by Provider: 11:30 Date H&P Reviewed: Dec 29, 2017 Time H&P Reviewed: :30 Pre-Operative Diagnosis: hx polyps CJ PEGUERO MD Dec 29, 2017 11:34 am
[2017-12-29] MEDS ORDERED: fentaNYL INJECTION 100 MCG/2 ML AMP ONE ×2 (11:40→11:41)
[2017-12-29] MEDS ORDERED: LIDOCAINE JELLY 2% (XYLOCAINE) 5 ML TUBE ONE (11:40)
[2017-12-29] MEDS ORDERED: MIDAZOLAM 2 MG/2 ML (VERSED) VIAL ONE ×5 (11:41)
[2017-12-29] MEDS ORDERED: ONDANSETRON 4 MG/2 ML (SDV) Z0FRAN IV PRN (11:45)
[2017-12-29] MEDS ORDERED: HYDROcodone/APAP 5 MG/325 MG (LORTAB) TAB PO PRN (11:45)
[2017-12-29] MEDS ORDERED: ACETAMINOPHEN 325 MG TABLET PO PRN (11:45)
[2017-12-29] MEDS ORDERED: morphine INJ 10 MG/ML 1ML (SYR OR VIAL) IV PRN (11:45)
[2017-12-29 11:50] VITALS: BP 150/47
[2017-12-29] MEDS: fentaNYL INJECTION 100 MCG/2 ML AMP IVP PRN ×3 (12:16→12:45)
[2017-12-29] MEDS: MIDAZOLAM 2 MG/2 ML (VERSED) VIAL IVP PRN ×4 (12:17→12:48)
[2017-12-29] MEDS ORDERED: LIDOCAINE JELLY 2% (XYLOCAINE) 5 ML TUBE TOP ONE (13:00)
--- NOTE | 2017-12-29 13:10 | Progress Note-Post Operative ---
Post-Operative Progess Note Surgeon (s)/Stripe Marker (s) Surgeon CJ PEGUERO MD Stripe Marker: none Pre-Operative Diagnosis hx polyps Post-Operative Diagnosis chronic stage 2-3 ext and int hemorrhoid, moderate sigmoid diverticulosis. Procedure & Operative Findings Date of Procedure 12/29/17 Procedure Performed/Findings Colonoscopy. Anesthesia Type CS Estimated Blood Loss Estimated blood loss (mL): minimal Specimens/Packing Specimens Removed none CJ PEGUERO MD Dec 29, 2017 1:10 pm
--- NOTE | 2017-12-29 13:12 | Discharge Inst-Surgical ---
D/C Lap Instructions-MARIELENA Follow Up 10 years Activity as tolerated High Fiber Diet 25g or more per day Avoid Alcohol, Caffeine, Spicy [place] and Acid foods. Drink 64 fluid oz or more of fluids per day. Symptoms to Report: Fever over 101 degree F, Nausea/Vomiting If any problems/questions: Contact your physician or go to Emergency Room CJ PEGUERO MD Dec 29, 2017 1:12 pm
[2017-12-29 13:20] VITALS: BP 102/43
[2017-12-29 13:50] VITALS: BP 144/43
--- NOTE | 2017-12-29 18:11 | OPERATIVE REPORT ---
DATE OF SERVICE: 12/29/2017 ATTENDING PRIMARY CARE PHYSICIAN: MANOJ Cordero PREOPERATIVE DIAGNOSIS: History of colon polyps. POSTOPERATIVE DIAGNOSES: Chronic stage II external and internal hemorrhoids, moderate sigmoid diverticulosis. PROCEDURE: Colonoscopy. SURGEON: Cj Peguero MD ANESTHESIA: Conscious sedation. ESTIMATED BLOOD LOSS: Minimal. FINDINGS: Chronic between stage II and III external and internal hemorrhoids, moderate sigmoid diverticulosis with no mucosal inflammatory changes to indicate any active diverticulitis. The remainder of the colon was normal. There were no polyps identified. DISPOSITION: The patient tolerated the procedure well. INDICATIONS: The patient is a 72-year-old female in need of a followup colonoscopy. She has had a history of polyps in the past. She had a colonoscopy in 2011, where a polyp was identified and found to be benign. She then had one in 2013, where no polyp was identified. She reports a history of some constipation, no diarrhea, no red blood per rectum or dark tarry stools. She also does not report any family history of colon cancer; however, does have a family history of cancer in general with her mother and her sister being diagnosed with breast cancer. DESCRIPTION OF PROCEDURE: The patient was brought to the endoscopy suite, laid in the left lateral decubitus position. After adequate IV pain and sedating medications and conscious sedation anesthesia then a digital rectal examination was performed. Chronic stage II external and internal hemorrhoids were identified, which were not actively demonstrated inflamed and no bleeding. Normal sphincter tone was felt and there were no palpable masses. The endoscope was then intubated to the anus rectum gently insufflated. The endoscope was then advanced to the valves diffuse the rectum with no polyps or any neoplasms identified. Endoscope was then advanced to the sigmoid colon where a moderate sigmoid diverticulosis identified. There were no mucosal inflammatory changes indicating any active diverticulitis. The endoscope was then advanced to the remainder of the descending, transverse and ascending colon to the cecum. These segments were normal. There were no polyps or any neoplasms identified throughout the colon or rectum. The endoscope was then slowly withdrawn while taking a second look and suctioning of residual air with no additional findings. The patient tolerated the procedure well. We will recommend a high fiber diet with at least 25 grams of fiber per day as well as at least 64 fluid ounces of water daily to promote soft stools on a daily basis. It appears that she did not have a polyp on this colonoscopy and the polyp was detected on previous colonoscopy was a benign hyperplastic polyp. We have no record of her having an adenomatous polyp. Due to this, she may wait 10 years on the sooner if she becomes symptomatic. Job ID: [id number] DocumentID: [id number] Dictated Date: 12/29/2017 13:06:22 Cash Posting Representative Date: 12/29/2017 18:10:48 Dictated By: CJ PEGUERO MD
--- OUTSIDE RECORDS SUMMARY | 2017-12-31 07:23 | XMS REPORT ---
Author Author WILSON ABDI [facility] Address [address] [place] [address] Care Team Providers Care Transplant Registered Nurse Name Role Phone WILSON ABDI Unavailable PROBLEMS Type Condition ICD9-CM Code [id number] Code Onset Dates Condition Status SNOMED Code Problem CAD (coronary artery disease) I25.10 Active 80612501 Problem Urinary incontinence in female R32 Active 838180950 Problem Essential hypertension I10 Active 07899454 Problem Osteoporosis M81.0 Active 80867261 Problem PVD (peripheral vascular disease) I73.9 Active 587621755 Problem History of colon polyps Z86.010 Active 377910614 Problem Chronic congestive heart failure, unspecified congestive heart failure type I50.9 Active 62858197 Problem Pain in left shoulder M25.512 Active 56986939 Problem Pain in right shoulder M25.511 Active 57450412 Problem Abnormality of left breast on screening mammogram R92.8 Active 598349690 Problem Chronic obstructive pulmonary disease, unspecified COPD type J44.9 Active 22378370 ALLERGIES Substance Reaction Event Type Date Status N.K.D.A. Unknown Non Drug Allergy Aug, Unknown SOCIAL HISTORY No smoking Hx information available PLAN OF CARE VITAL SIGNS Height 52 in 2016-09-13 Weight 139.9 lbs 2016-09-13 Temperature 97.4 degrees Fahrenheit 2016-09-13 Heart Rate 72 bpm 2016-09-13 Respiratory Rate 18 2016-09-13 BMI 36.37 kg/m2 2016-09-13 Blood pressure systolic 156 mmHg 2016-09-13 Blood pressure diastolic 76 mmHg 2016-09-13 MEDICATIONS Medication Instructions Dosage Frequency Start Date End Date Duration Status clopidogrel 75 mg take 1 tablet 24h Active MiraLax 17 gm/dose Orally Once a day PRN 17 grams mixed in 8 oz of water or juice Active Calcium 500 MG 2 Tablet 24h Active Metoprolol Tartrate 25MG oral twice daily 1 tablet 30 Active Alendronate Sodium 70 MG Orally weekly 1 tablet Active Furosemide 40 MG Orally Once a day 1 tablet 24h Active One Daily Calcium/Iron - Active Myrbetriq 25 MG Orally Once a day 1 tablet 24h Jul, Sep, 30 day(s) Active Benadryl 25 MG Active Mucinex 600 MG Orally every 12 hrs 1 tablet as needed 12h Active Potassium Chloride Teresa ER 10 MEQ Orally Once a day 1 tablet 24h Active verapamil 120 mg 1 Tablet 24h Active Vitamin D 1000 UNIT Orally Once a day 1 capsule 24h Active Pravastatin Sodium 20 MG Orally Once a day 1 tablet 24h Active RESULTS No Results PROCEDURES Procedure Date Ordered Related Diagnosis Body Site TRIM NAIL(S) 2016-09-13 N/A [facility] VISIT ESTABLISHED PATIENT Sep 13, 2016 TRIM NAIL(S) Sep 13, 2016 Office Visit, Est Pt., Level 2 Sep 13, 2016 IMMUNIZATIONS No Known Immunizations
--- OUTSIDE RECORDS SUMMARY | 2017-12-31 07:23 | XMS REPORT ---
Author Author WILSON ABDI [facility] Address [address] [place] [address] Care Team Providers Care Parking Inspector Name Role Phone WILSON ABDI Unavailable PROBLEMS Type Condition ICD9-CM Code [id number] Code Onset Dates Condition Status SNOMED Code Problem CAD (coronary artery disease) I25.10 Active 27391157 Problem Pain in right shoulder M25.511 Active 98991959 Problem Pain in left shoulder M25.512 Active 41777584 Problem Essential hypertension I10 Active 76544870 Problem Osteoporosis M81.0 Active 20820016 Problem PVD (peripheral vascular disease) I73.9 Active 271694411 Problem Abnormal mammogram R92.8 Active 752167119 Problem History of colon polyps Z86.010 Active 672195290 Problem Chronic obstructive pulmonary disease, unspecified COPD type J44.9 Active 77130531 Problem Urinary incontinence in female R32 Active 281960160 Problem Chronic congestive heart failure, unspecified congestive heart failure type I50.9 Active 63734220 Problem Abnormality of left breast on screening mammogram R92.8 Active 328631135 ALLERGIES No Known Allergies SOCIAL HISTORY Never Assessed PLAN OF CARE VITAL SIGNS Height 52 in 2017-02-01 Weight 139.8 lbs 2017-02-01 Temperature 97.8 degrees Fahrenheit 2017-02-01 Heart Rate 62 bpm 2017-02-01 Respiratory Rate 20 2017-02-01 BMI 36.35 kg/m2 2017-02-01 Blood pressure systolic 148 mmHg 2017-02-01 Blood pressure diastolic 62 mmHg 2017-02-01 MEDICATIONS Medication Instructions Dosage Frequency Start Date End Date Duration Status Aspir-81 81 MG Orally Once a day 1 tablet 24h Active Alendronate Sodium 70 MG Orally weekly 1 tablet Active Dexamethasone 0.1 % otic Twice a day prn right ear 2 drop into affected ear Nov, Active MiraLax 17 gm/dose Orally Once a day PRN 17 grams mixed in 8 oz of water or juice Active ProAir HFA 108 (90 Base) MCG/ACT Inhalation every 4-6 hrs 1-2 puffs as needed Active Fish Oil 1000 MG Orally Once a day 2 capsule 24h Active Triamcinolone Acetonide 0.1 % Externally Twice a day 1 application to affected area 12h Active Vitamin D 1000 UNIT Orally Once a day 1 capsule 24h Active clopidogrel 75 mg by oral route Once a day take 1 tablet 24h 5 Jul, 2017 30 days Active Potassium Chloride Teresa ER 10 MEQ TAKE ONE TABLET BY MOUTH ONCE DAILY 90 Active Pravastatin Sodium 20 mg Orally Once a day 1 tablet 24h Active PreserVision AREDS - Orally 2 times a day 1 capsule 12h Active Myrbetriq 25 MG TAKE ONE TABLET BY MOUTH ONCE DAILY 30 Active verapamil 120 mg 1 Tablet 24h Active Metoprolol Tartrate 25MG oral twice daily 1 tablet 30 Active Mucinex 600 MG Orally every 12 hrs 1 tablet as needed 12h Active Benadryl 25 MG Active Furosemide 40 MG TAKE ONE TABLET BY MOUTH ONCE DAILY 90 Active One Daily Calcium/Iron - Active Calcium 600 MG Orally Once a day 1 Tablet 24h Active Clobetasol Propionate 0.05 % Externally Twice a day 1 drop to affected area 12h January, 10 day(s) Active RESULTS No Results PROCEDURES Procedure Date Ordered Result Body Site [facility] VISIT ESTABLISHED PATIENT February 01, 2017 IMMUNIZATIONS No Known Immunizations MEDICAL (GENERAL) HISTORY Type Description Date Medical History Hyperlipidemia- LDL 84 TG 129 Medical History Osteoporosis HX- Osteopenia BMD Medical History CAD Medical History HTN Medical History CHF [id number] Stress test - Dye test both legs for PVD Medical History Actinic keratosis Medical History Hematuria, unspecified Medical History CAD (coronary artery disease) Medical History Tobacco Abuse Medical History Unspecified osteoporosis Medical History PVD Khlohid Stents in Legs (she thinks) PVD Surgical History appendectomy Surgical History hysterectomy Surgical History hemorrhoidectomy Surgical History left leg crushed and skin graft from right leg to left. Surgical History cholecystectomy Surgical History stents placed in both legs December 2016 Hospitalization History surgeries
--- OUTSIDE RECORDS SUMMARY | 2017-12-31 07:23 | XMS REPORT ---
Author Author MANI SOARES [facility] Address [address] [place] [address] Care Team Providers Care Air Motor Repairer Name Role Phone MANI SOARES Unavailable PROBLEMS Type Condition ICD9-CM Code [id number] Code Onset Dates Condition Status SNOMED Code Problem CAD (coronary artery disease) I25.10 Active 73543135 Problem Pain in right shoulder M25.511 Active 47819160 Problem Pain in left shoulder M25.512 Active 37087066 Problem Essential hypertension I10 Active 26580335 Problem Osteoporosis M81.0 Active 70538816 Problem PVD (peripheral vascular disease) I73.9 Active 261341366 Problem Abnormal mammogram R92.8 Active 869635944 Problem History of colon polyps Z86.010 Active 996875977 Problem Chronic obstructive pulmonary disease, unspecified COPD type J44.9 Active 04873648 Problem Urinary incontinence in female R32 Active 036626336 Problem Chronic congestive heart failure, unspecified congestive heart failure type I50.9 Active 84148358 Problem Abnormality of left breast on screening mammogram R92.8 Active 280263763 ALLERGIES No Known Allergies SOCIAL HISTORY Never Assessed PLAN OF CARE Activity Details Follow Up 6 months, sooner for chronic health maintenance Reason: VITAL SIGNS Height 52 in 2017-01-24 Weight 140.7 lbs 2017-01-24 Temperature 98.2 degrees Fahrenheit 2017-01-24 Heart Rate 64 bpm 2017-01-24 Respiratory Rate 18 2017-01-24 BMI 36.58 kg/m2 2017-01-24 Blood pressure systolic 124 mmHg 2017-01-24 Blood pressure diastolic 74 mmHg 2017-01-24 MEDICATIONS Medication Instructions Dosage Frequency Start Date End Date Duration Status Metoprolol Tartrate 25MG oral twice daily 1 tablet 30 Active ProAir HFA 108 (90 Base) MCG/ACT Inhalation every 4-6 hrs 1-2 puffs as needed Active Triamcinolone Acetonide 0.1 % Externally Twice a day 1 application to affected area 12h Active Mucinex 600 MG Orally every 12 hrs 1 tablet as needed 12h Active clopidogrel 75 mg by oral route Once a day take 1 tablet 24h 5 Jul, 2017 30 days Active Benadryl 25 MG Active Pravastatin Sodium 20 mg Orally Once a day 1 tablet 24h Active One Daily Calcium/Iron - Active Dexamethasone 0.1 % otic Twice a day prn right ear 2 drop into affected ear Nov, Active Potassium Chloride Teresa ER 10 MEQ TAKE ONE TABLET BY MOUTH ONCE DAILY 90 Active Aspir-81 81 MG Orally Once a day 1 tablet 24h Active Clobetasol Propionate 0.05 % Externally Twice a day 1 drop to affected area 12h January, 10 day(s) Active PreserVision AREDS - Orally 2 times a day 1 capsule 12h Active Vitamin D 1000 UNIT Orally Once a day 1 capsule 24h Active Furosemide 40 MG TAKE ONE TABLET BY MOUTH ONCE DAILY 90 Active MiraLax 17 gm/dose Orally Once a day PRN 17 grams mixed in 8 oz of water or juice Active Calcium 600 MG Orally Once a day 1 Tablet 24h Active Fish Oil 1000 MG Orally Once a day 2 capsule 24h Active verapamil 120 mg 1 Tablet 24h Active Alendronate Sodium 70 MG Orally weekly 1 tablet Active Myrbetriq 25 MG TAKE ONE TABLET BY MOUTH ONCE DAILY 30 Active RESULTS Name Result Date Reference Range CT Scan : Chest, low dose (Screening) 2017-03-23 PROCEDURES Procedure Date Ordered Result Body Site INIT PREV PE LTD DUR 1ST 12 MOS MCR January 24, 2017 ANNUAL WELLNES VST; PERSNL PPS INIT January 24, 2017 ANNUAL WELLNESS VST; PPS SUBSQT VST January 24, 2017 ANNUAL WELLNESS VST; PPS SUBSQT VST January 24, 2017 [facility] VISIT ESTABLISHED PATIENT January 24, 2017 IMMUNIZATIONS No Known Immunizations MEDICAL (GENERAL) HISTORY Type Description Date Medical History Hyperlipidemia- LDL 84 TG 129 Medical History Osteoporosis HX- Osteopenia BMD Medical History CAD Medical History HTN Medical History CHF Medical History Lexascan [id number] normal with [facility] Stress test - [...] Surgical History stents placed in both legs November/December 2016 Hospitalization History surgeries
--- OUTSIDE RECORDS SUMMARY | 2017-12-31 07:24 | XMS REPORT ---
Author Author MANI SOARES [facility] Address [address] [place] [address] Care Team Providers Care Appeals Board Referee Name Role Phone MANI SOARES Unavailable PROBLEMS Type Condition ICD9-CM Code [id number] Code Onset Dates Condition Status SNOMED Code Problem PVD (peripheral vascular disease) I73.9 Active 977550089 Problem Pain in left shoulder M25.512 Active 06058222 Problem CAD (coronary artery disease) I25.10 Active 85480079 Problem Essential hypertension I10 Active 69193304 Problem Osteoporosis M81.0 Active 78484201 Problem History of colon polyps Z86.010 Active 040331647 Problem Chronic congestive heart failure, unspecified congestive heart failure type I50.9 Active 20800211 Problem Urinary incontinence in female R32 Active 839510527 Problem Pain in right shoulder M25.511 Active 71720277 Problem Chronic obstructive pulmonary disease, unspecified COPD type J44.9 Active 74063817 Problem Abnormality of left breast on screening mammogram R92.8 Active 696010899 ALLERGIES Substance Reaction Event Type Date Status N.K.D.A. Unknown Non Drug Allergy Sep, Unknown SOCIAL HISTORY No smoking Hx information available PLAN OF CARE Activity Details Follow Up 8 weeks Reason:cholesterol VITAL SIGNS Height 52 in 2016-09-20 Weight 141.1 lbs 2016-09-20 Temperature 98.0 degrees Fahrenheit 2016-09-20 Heart Rate 72 bpm 2016-09-20 Respiratory Rate 18 2016-09-20 BMI 36.68 kg/m2 2016-09-20 Blood pressure systolic 141 mmHg 2016-09-20 Blood pressure diastolic 73 mmHg 2016-09-20 MEDICATIONS Medication Instructions Dosage Frequency Start Date End Date Duration Status One Daily Calcium/Iron - Active verapamil 120 mg 1 Tablet 24h Active Potassium Chloride Teresa ER 10 MEQ Orally Once a day 1 tablet 24h Active Pravastatin Sodium 20 MG Orally Once a day 1 tablet 24h Active Mucinex 600 MG Orally every 12 hrs 1 tablet as needed 12h Active Furosemide 40 MG Orally Once a day 1 tablet 24h Active Vitamin D 1000 UNIT Orally Once a day 1 capsule 24h Active Benadryl 25 MG Active Calcium 500 MG 2 Tablet 24h Active Metoprolol Tartrate 25MG oral twice daily 1 tablet 30 Active ProAir HFA 108 (90 Base) MCG/ACT Inhalation every 4-6 hrs 1-2 puffs as needed Sep, Active MiraLax 17 gm/dose Orally Once a day PRN 17 grams mixed in 8 oz of water or juice Active clopidogrel 75 mg take 1 tablet 24h Active Myrbetriq 25 MG Orally Once a day 1 tablet 24h Nov, 30 day(s) Active Triamcinolone Acetonide 0.1 % Externally Twice a day 1 application to affected area 12h Active Alendronate Sodium 70 MG Orally weekly 1 tablet Active RESULTS Name Result Date Reference Range Mammogram Dx, Left 2016-09-26 PROCEDURES Procedure Date Ordered Related Diagnosis Body Site [facility] VISIT ESTABLISHED PATIENT Sep 20, 2016 Office Visit, Est Pt., Level 4 Sep 20, 2016 IMMUNIZATIONS No Known Immunizations
--- OUTSIDE RECORDS SUMMARY | 2017-12-31 07:24 | XMS REPORT ---
Author Author MANI SOARES [facility] Address [address] [place] [address] Care Team Providers Care News Internship Name Role Phone MANI SOARES Unavailable PROBLEMS Type Condition ICD9-CM Code [id number] Code Onset Dates Condition Status SNOMED Code Problem CAD (coronary artery disease) I25.10 Active 08076615 Problem Pain in right shoulder M25.511 Active 39888620 Problem Pain in left shoulder M25.512 Active 88093790 Problem Essential hypertension I10 Active 36526922 Problem Osteoporosis M81.0 Active 67837153 Problem PVD (peripheral vascular disease) I73.9 Active 798558412 Problem Abnormal mammogram R92.8 Active 905516110 Problem History of colon polyps Z86.010 Active 511883572 Problem Chronic obstructive pulmonary disease, unspecified COPD type J44.9 Active 33518370 Problem Urinary incontinence in female R32 Active 613951081 Problem Chronic congestive heart failure, unspecified congestive heart failure type I50.9 Active 96957627 Problem Abnormality of left breast on screening mammogram R92.8 Active 639846937 ALLERGIES No Information SOCIAL HISTORY Never Assessed PLAN OF CARE VITAL SIGNS MEDICATIONS No Known Medications RESULTS No Results PROCEDURES No Known procedures IMMUNIZATIONS No Known Immunizations MEDICAL (GENERAL) HISTORY Type Description Date Medical History Hyperlipidemia- LDL 84 TG 129 Medical History Osteoporosis HX- Osteopenia BMD Medical History CAD Medical History HTN Medical History CHF Medical History Lexascan 2-6=[id number] normal with [facility] Stress test - [...]
--- OUTSIDE RECORDS SUMMARY | 2017-12-31 07:24 | XMS REPORT ---
Author Author WILSON ABDI [facility] Address [address] [place] [address] Care Team Providers Care Computer Game Designer Name Role Phone WILSON ABDI Unavailable PROBLEMS Type Condition ICD9-CM Code [id number] Code Onset Dates Condition Status SNOMED Code Problem PVD (peripheral vascular disease) I73.9 Active 680143307 Problem Pain in left shoulder M25.512 Active 40499984 Problem CAD (coronary artery disease) I25.10 Active 63040220 Problem Essential hypertension I10 Active 89712142 Problem Osteoporosis M81.0 Active 00817479 Problem History of colon polyps Z86.010 Active 307526584 Problem Chronic congestive heart failure, unspecified congestive heart failure type I50.9 Active 49558133 Problem Urinary incontinence in female R32 Active 556729418 Problem Pain in right shoulder M25.511 Active 66243143 Problem Chronic obstructive pulmonary disease, unspecified COPD type J44.9 Active 64070177 Problem Abnormality of left breast on screening mammogram R92.8 Active 227937066 ALLERGIES No Known Allergies SOCIAL HISTORY Never Assessed PLAN OF CARE VITAL SIGNS Height 52 in 2016-10-25 Weight 141 lbs 2016-10-25 Temperature 98.3 degrees Fahrenheit 2016-10-25 Heart Rate 76 bpm 2016-10-25 Respiratory Rate 18 2016-10-25 BMI 36.66 kg/m2 2016-10-25 Blood pressure systolic 110 mmHg 2016-10-25 Blood pressure diastolic 70 mmHg 2016-10-25 MEDICATIONS Medication Instructions Dosage Frequency Start Date End Date Duration Status Furosemide 40 MG TAKE ONE TABLET BY MOUTH ONCE DAILY 90 Active Potassium Chloride Teresa ER 10 MEQ Orally Once a day 1 tablet 24h Active Triamcinolone Acetonide 0.1 % Externally Twice a day 1 application to affected area 12h Active ProAir HFA 108 (90 Base) MCG/ACT Inhalation every 4-6 hrs 1-2 puffs as needed Sep, Active Vitamin D 1000 UNIT Orally Once a day 1 capsule 24h Active Mucinex 600 MG Orally every 12 hrs 1 tablet as needed 12h Active Benadryl 25 MG Active clopidogrel 75 mg take 1 tablet 24h Active One Daily Calcium/Iron - Active Pravastatin Sodium 20 MG Orally Once a day 1 tablet 24h Active Myrbetriq 25 MG Orally Once a day 1 tablet 24h 4 Nov, 2016 30 day(s) Active Alendronate Sodium 70 MG Orally weekly 1 tablet Active Metoprolol Tartrate 25MG oral twice daily 1 tablet 30 Active MiraLax 17 gm/dose Orally Once a day PRN 17 grams mixed in 8 oz of water or juice Active Calcium 500 MG 2 Tablet 24h Active verapamil 120 mg 1 Tablet 24h Active RESULTS No Results PROCEDURES Procedure Date Ordered Result Body Site TRIM NAIL(S) 2016-10-25 N/A TRIM NAIL(S) Oct 25, 2016 [facility] VISIT ESTABLISHED PATIENT Oct 25, 2016 IMMUNIZATIONS No Known Immunizations MEDICAL (GENERAL) HISTORY Type Description Date Medical History Hyperlipidemia- LDL 84 TG 129 Medical History Osteoporosis HX- Osteopenia BMD Medical History CAD Medical History HTN Medical History CHF Medical History Lexascan 2-4=2095 normal with [facility] Stress test - Dye test both legs for PVD Medical History Actinic keratosis Medical History Hematuria, unspecified Medical History CAD (coronary artery disease) Medical History Tobacco Abuse Medical History Unspecified osteoporosis Medical History PVD Nayahid Stents in Legs (she thinks) PVD Surgical History appendectomy Surgical History hysterectomy Surgical History hemorrhoidectomy Surgical History left leg crushed and skin graft from right leg to left. Surgical History cholecystectomy Surgical History stents placed in both legs December 2016 Hospitalization History surgeries
--- OUTSIDE RECORDS SUMMARY | 2017-12-31 07:25 | XMS REPORT ---
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 Name Role Phone STARKEYSURYA BurdenELE Unavailable PROBLEMS Type Condition ICD9-CM Code EWN02-NQ Code Onset Dates Condition Status SNOMED Code Problem PVD (peripheral vascular disease) I73.9 Active 318855347 Problem Pain in left shoulder M25.512 Active 94385471 Problem CAD (coronary artery disease) I25.10 Active 03385811 Problem Essential hypertension I10 Active 33869784 Problem Osteoporosis M81.0 Active 63678981 Problem Incontinence in female R32 Active 17663407 Problem History of colon polyps Z86.010 Active 789491979 Problem Abnormality of left breast on screening mammogram R92.8 Active 714215712 Problem Pain in right shoulder M25.511 Active 25638042 Problem Chronic congestive heart failure, unspecified congestive heart failure type I50.9 Active 87257449 Problem Chronic obstructive pulmonary disease, unspecified COPD type J44.9 Active 39734620 ALLERGIES No Known Allergies ENCOUNTERS Encounter Location Date Diagnosis [place] [id number] [place] [address]281- [address]247 Nov, Essential hypertension I10 ; CAD (coronary artery disease) I25.10 and Rectal discharge R19.8 [facility] [address] [place] [address] 37012- 1120 Nov, Essential hypertension I10 ; Chronic obstructive pulmonary disease, unspecified COPD type J44.9 ; Chronic congestive heart failure, unspecified congestive heart failure type I50.9 ; Osteoporosis M81.0 ; CAD ( coronary artery disease) I25.10 ; History of colon polyps Z86.010 ; Rectal discharge R19.8 and PVD (peripheral vascular disease) I73.9 [facility] [address] [place] [id number] [place] [address] 64535- 4910 14 Nov, 2017 [facility] [address] [place] [id number] [place] [address] 58491- 4137 Nov, Nail hypertrophy L60.2 and Self-care deficit for hygiene R46.0 [place] [address] [place] [id number] [place] [address] 64671- 3916 06 Nov, 2017 Dysuria R30.0 and Colon cancer screening Z12.11 [place] [address] 12774- 7990 05 Nov, 2017 Essential hypertension I10 and CAD (coronary artery disease ) I25.10 [facility] [address] [address] 02 Nov, 2017 Dysuria R30.0 ; Rectal discharge R19.8 and Incontinence in female R32 [address] [address]- [address]654 Oct, [place] [address] 35605- 8284 Aug, Self-care deficit for hygiene R46.0 ; Nail dystrophy L60.3 and Encounter for immunization Z23 [place] [address] [place] [id number] [place] [address] 04821- 6899 Jun, Self-care deficit for hygiene R46.0 and Nail hypertrophy L60.2 [place] [address] [place] [id number] [place] [address] 68117- 0894 Jun, [address] [address]- 4480 Jun, Abnormality of left breast on screening mammogram R92.8 and Abnormal mammogram R92.8 [place] [address] [place] [id number] [place] [address] 80938- 9067 May, Abnormality of left breast on screening mammogram R92.8 [place] [address] 54378- 5775 May, Nail hypertrophy L60.2 and Self-care deficit for hygiene R46.0 [place] [address] [place] [address] 52449- 7729 Apr, CAD (coronary artery disease) I25.10 ; Dermatitis of external ear L30.9 ; Abrasion, left lower leg, subsequent encounter S80.812D and Pericardial effusion I31.3 [place] [address] [place] [id number] [place] [address] 10750- 2840 Apr, Osteoporosis M81.0 [place] [address] [place] [id number] [place] [address] 65890- 5928 Feb, Effusion of left knee M25.462 and Cellulitis of left lower extremity L03.116 [place] [address] [place] [id number] [place] [address] 02766- 9044 January, [facility] [address] [place] [id number] [place] [address] 59227 -1175 January, Leg abrasion, right, initial encounter S80.811A [place] [address] [place] [id number] [place] [address] 32333- 0655 January, Medicare welcome exam Z00.00 ; Medicare annual wellness visit, initial Z00.00 ; Medicare annual wellness visit, subsequent Z00.00 ; History of colon polyps Z86.010 ; CAD (coronary artery disease) I25.10 ; Tobacco abuse Z72.0 and Itchy scalp L29.9 [place] [address] [place] [id number] [place] [address] 89482- 3728 Dec, Nail hypertrophy L60.2 and Self-care deficit for hygiene R46.0 [place] [address] [place] [id number] [place] [address] 23130- 2518 Nov, Chronic obstructive pulmonary disease, unspecified COPD type J44.9 ; Essential hypertension I10 ; Urinary incontinence in female R32 ; Dermatitis of external ear L30.9 ; Osteoporosis M81.0 ; CAD (coronary artery disease) I25.10 ; Chronic congestive heart failure, unspecified congestive heart failure type I50.9 and Abnormality of left breast on screening mammogram R92.8 [place] [address] [place] [id number] [place] [address] 83563- 5489 07 Oct, 2016 Nail hypertrophy L60.2 and Self-care deficit for hygiene R46.0 [place] [address] [place] [id number] [place] [address] 42540- 5861 Sep, Abnormality of left breast on screening mammogram R92.8 [place] [address] 18422- 5637 Sep, Chronic obstructive pulmonary disease, unspecified COPD type J44.9 ; Essential hypertension I10 ; Urinary incontinence in female R32 ; Dermatitis of external ear L30.9 ; Osteoporosis M81.0 ; Cough R05 and Abnormality of left breast on screening mammogram R92.8 [place] [address] 26373- 5533 Aug, Self-care deficit for hygiene R46.0 and Hypertrophy of nail L60.2 [place] [address] [place] [id number] [place] [address] 27469- 9871 Aug, [place] [address] 27033- 5106 Jul, [place] [address] [place] [id number] [place] [address] 62903- 8224 Jul, Routine gynecological examination Z01.419 [place] [address] 13669- 0980 Jul, Routine gynecological examination Z01.419 ; General medical exam Z00.00 ; Screening breast examination Z12.39 ; Essential hypertension I10 ; Osteoporosis M81.0 ; Urinary incontinence in female R32 ; Cough R05 and Encounter for immunization Z23 [place] [address] [place] [id number] [place] [address] 93763- 2300 Jul, Nail hypertrophy L60.2 and Self-care deficit for hygiene R46.0 [place] [address] [place] [address]- 3922 Jul, [place] [address] [place] [id number] [place] [address] 58067- 5790 Jun, [place] [address] 79868- 5867 Jun, Bronchitis J40 and Dry skin dermatitis L85.3 [place] [address] 09125- 0179 Jun, Nail hypertrophy L60.2 and Self-care deficit for hygiene R46.0 [place] [address] 21972- 6052 Apr, Hypertrophy of nail L60.2 and Self-care deficit for hygiene R46.0 [place] [address] 18453- 2834 Apr, [place] [address] 95814- 4283 Apr, [place] [address] 60619- 4512 Mar, Essential hypertension I10 ; CAD (coronary artery disease) I25.10 ; PVD (peripheral vascular disease) I73.9 ; Osteoporosis M81.0 ; Pain in left shoulder M25.512 ; Pain in right shoulder M25.511 and Urinary incontinence in female R32 [place] [address] [place] [id number] [place] [address] 69029- 9538 Mar, Nail hypertrophy L60.2 and Self-care deficit for hygiene R46.0 [place] [address] [place] [id number] [place] [address] 87872- 7198 January, Nail hypertrophy L60.2 and Self-care deficit for hygiene R46.0 [place] [address] [place] [id number] [place] [address] 94479- 7659 Dec, [place] [address] 53079- 4450 Dec, Nail hypertrophy L60.2 and Self-care deficit in patient living alone R46.89 [place] [address] 27500- 3975 Oct, [place] [address] 62676- 6083 Sep, Nail hypertrophy L60.2 [place] [address] 92717- 7307 Sep, Essential hypertension I10 ; CAD (coronary artery disease) I25.10 ; PVD (peripheral vascular disease) I73.9 and Osteoporosis M81.[address] 97658- 1687 Sep, [place] [address] 67256- 9201 Aug, [address] 91327- 0168 Aug, Hypertrophy of nail L60.2 ; Pain in right foot M79.671 ; Pain of left foot M79.672 and Callus of foot L84 [address] 44417- 9078 Jun, Hypertrophy of nail L60.2 ; Self-care deficit for hygiene R46.0 and Needs flu shot Z23 [address] 62176- 1706 Jun, Screening for breast cancer Z12.39 [place] [id number] [place] [address] 25922- 5133 Apr, Self-care deficit for hygiene V40.39 and Nail hypertrophy 703.8 [place] [id number] [place] [address] 00258- 4252 Mar, [place] [address] 66878- 4912 Mar, Unspecified peripheral vascular disease 443.9 ; Nondependent tobacco use disorder 305.1 ; Essential hypertension, benign 401.1 ; Unspecified osteoporosis 733.00 ; CAD (coronary artery disease) 414.00 and Sebaceous cyst 706.2 [facility] [address] [id number] Feb, Dental examination V72.2 [facility] [address] [place] [id number] [id number] Feb, Dental examination V72.2 [facility] [address] [place] [id number] [place] [address] [id number] January, Dental examination V72.2 [facility] [address] [place] [id number] [place] [address] [id number] January, Dental examination V72.2 [facility] [address] [place] [id number] [place] [address] 91887- 2546 Dec, [facility] [address] [place] [id number] [place] [address] 41089- 1126 Dec, [facility] [address] [place] [id number] [place] [address] 91226- 9696 Dec, [facility] [address] [place] [id number] [place] [address] 30737- 2546 Sep, [facility] [address] [address]- 2006 Sep, [facility] [address] [id number] [address]- 2546 Aug, [facility] [address] [address]- 5976 Aug, [facility] [address] [place] [id number] [place] [address] 39054- 2546 Jul, [facility] [address] [address]- 2546 Jul, [facility] [address] [place] [id number] [place] [address] [place] [address]- 7539 Jul, [facility] [place] [facility] [address] [id number] [place] [address]- 0331 Jul, [facility] [place] [facility] [address] [id number] [place] [address]- 5865 Jul, [facility] [place] [facility] [address] [id number] [place] [address]- 4503 Jun, [facility] [place] [facility] [address] [id number] [place] [address]- 4442 Jun, [facility] [place] [facility] [address] [id number] [place] [address]- 4211 16 May, 2014 [facility] [place] [facility] [address] [id number] [place] [address]- 5840 16 May, 2014 [facility] [place] [facility] [address] [id number] [place] [address]- 8057 08 May, 2014 [facility] [place] [facility] [address] [id number] [place] [address]- 0598 08 May, 2014 [facility] [place] [facility] [address] [id number] [place] [address]- 1954 May, [facility] [place] [facility] [address] [id number] [place] [address]- 9654 May, [facility] [place] [facility] [address] [id number] [place] [address]- 6434 Apr, [facility] [place] [facility] [address] [id number] [place] [address]- 3266 Apr, [facility] [place] [facility] [address] [id number] [place] [address]- 6126 Mar, [facility] [place] [facility] [address] [id number] [place] [address]- 2324 Mar, [facility] [place] [facility] [address] [id number] [place] [address]- 7929 Mar, [facility] [place] [facility] [address] [id number] [place] [address]- 7734 Mar, [facility] [place] [facility] [address] [id number] [place] [address]- 1402 Mar, [facility] [place] [facility] [address] [id number] [place] [address]- 4736 Mar, [facility] [place] [facility] [address] [id number] [place] [address]- 0631 Mar, [facility] [place] [facility] [address] [id number] [place] [address]- 1987 Mar, [facility] [place] [facility] [address] [id number] [place] [address]- 4547 Feb, [facility] [place] [facility] [address] [id number] [place] [address]- 0020 Feb, [facility] [place] [facility] [address] [id number] [place] [address]- 4013 Feb, [facility] [place] [facility] [address] [id number] [place] [address]- 8618 Feb, [facility] [place] [facility] [address] [id number] [place] [address]- 7275 Nov, [facility] [place] [facility] [address] [id number] [place] [address]- 7757 Nov, [facility] [place] [facility] [address] [id number] [place] [address]- 5966 Aug, [facility] [place] [facility] [address] [id number] [place] [address]- 8716 Aug, [facility] [place] [facility] [address] [id number] [place] [address]- 2142 Aug, [facility] [place] [facility] [address] [id number] [place] [address]- 3223 Aug, [facility] [place] [facility] [address] [id number] [place] [address]- 9123 Jul, [facility] [place] [facility] [address] [id number] [place] [address]- 4775 Jul, [facility] [place] [facility] [address] [id number] [place] [address]- 2957 Jul, [facility] [place] [facility] [address] [id number] [place] [address]- 0840 Jul, [facility] [place] [facility] [address] [id number] [place] [address]- 2646 Jun, [facility] [place] [facility] [address] [id number] [place] [address]- 7328 May, [facility] [place] [facility] [address] [id number] [place] [address]- 8934 May, [facility] [place] [facility] [address] [id number] [place] [address]- 1115 Apr, [facility] [place] [facility] [address] [id number] [place] [address]- 6465 Apr, [facility] [place] [facility] [address] [id number] [place] [address]- 2292 Apr, [facility] [place] [facility] [address] [id number] [place] [address]- 6338 Apr, [facility] [place] [facility] [address] [id number] [address]- 2590 Apr, [facility] [place] [facility] [address] [id number] [address]- 4991 Apr, [facility] [place] [facility] [address] [id number] [place] [address]- 6208 Apr, [facility] [place] [facility] [address] [id number] [address]- 0129 Apr, [facility] [place] [facility] [address] [id number] [place] [address]- 4897 Apr, [facility] [place] [facility] [address] [address]- 4376 Mar, [facility] [address] [address]- 1082 Mar, [facility] [address] [address]- 3410 Feb, [facility] [address] [address]- 3263 January, [facility] [address] [address]- 6049 Dec, [facility] [address] [place] [address] 01396- 5323 Nov, [facility] [address] [address]- 6196 Nov, [facility] [id number] [address]- 0996 Oct, [facility] [address] [address]- 2323 Oct, [facility] [address] [address]- 7330 Oct, [facility] [address] [address]- 6817 Oct, IMMUNIZATIONS No Known Immunizations SOCIAL HISTORY Never Assessed REASON FOR VISIT Leg wound, patient states she fell on her knee few weeks ago and now is swollen and hot -- bandar sanchez PLAN OF CARE Activity Details Follow Up prn Reason: VITAL SIGNS Height 52 in 2017-03-13 Weight 136.0 lbs 2017-03-13 Temperature 98.0 degrees Fahrenheit 2017-03-13 Heart Rate 68 bpm 2017-03-13 Respiratory Rate 18 2017-03-13 BMI 35.36 kg/m2 2017-03-13 Blood pressure systolic 184 mmHg 2017-03-13 Blood pressure diastolic 73 mmHg 2017-03-13 MEDICATIONS Medication Instructions Dosage Frequency Start Date End Date Duration Status MiraLax 17 gm/dose Orally Once a day PRN 17 grams mixed in 8 oz of water or juice Active Vitamin D 1000 UNIT Orally Once a day 1 capsule 24h Active PreserVision AREDS - Orally 2 times a day 1 capsule 12h Active Aspir-81 81 MG Orally Once a day 1 tablet 24h Active ProAir HFA 108 (90 Base) MCG/ACT Inhalation every 4-6 hrs 1-2 puffs as needed Active Benadryl 25 MG Active Triamcinolone Acetonide 0.1 % Externally Twice a day 1 application to affected area 12h Active One Daily Calcium/Iron - Active Pravastatin Sodium 20 MG TAKE ONE TABLET BY MOUTH ONCE DAILY 90 Active Metoprolol Tartrate 25MG oral twice daily 1 tablet 30 Active Dexamethasone 0.1 % otic Twice a day prn right ear 2 drop into affected ear Nov, Active Myrbetriq 25 MG TAKE ONE TABLET BY MOUTH ONCE DAILY 30 Active Potassium Chloride Teresa ER 10 MEQ TAKE ONE TABLET BY MOUTH ONCE DAILY 90 Active verapamil 120 mg 1 Tablet 24h Active Furosemide 40 MG TAKE ONE TABLET BY MOUTH ONCE DAILY 90 Active Fish Oil 1000 MG Orally Once a day 2 capsule 24h Active Mucinex 600 MG Orally every 12 hrs 1 tablet as needed 12h Active Clobetasol Propionate 0.05 % Externally Twice a day 1 drop to affected area 12h January, 10 day(s) Active Alendronate Sodium 70 MG Orally weekly 1 tablet Active Calcium 600 MG Orally Once a day 1 Tablet 24h Active clopidogrel 75 mg by oral route Once a day take 1 tablet 24h Jul, 30 days Active RESULTS No Results PROCEDURES Procedure Date Ordered Result Body Site [facility] VISIT ESTABLISHED PATIENT March 13, 2017 INSTRUCTIONS MEDICATIONS ADMINISTERED No Known Medications MEDICAL (GENERAL) HISTORY Type Description Date Medical History Hyperlipidemia- LDL 84 TG 129 Medical History Osteoporosis HX- Osteopenia BMD Medical History CAD Medical History HTN Medical History CHF Medical History Lexascan 2-7=8386 normal with [facility] Stress test - [...]
--- OUTSIDE RECORDS SUMMARY | 2017-12-31 07:27 | XMS REPORT | Continuity of Care Document ---
Author Author [facility] Address Unknown Phone Unavailable Allergies Active Description Code Type Severity Reaction Onset Reported/Identified Relationship to Patient Clinical Status Yes No Known Drug Allergies [id number] Drug Allergy Unknown N/A 12/22/2017 Medications There is no data. Problems Date Dx Coded Attending Type Code Diagnosis Diagnosed By 03/23/2012 Ot 440.21 ATHEROSCL YAVAPAI-APACHE ARTER EXTREM W INTERMIT 03/23/2012 Ot 729.5 PAIN IN LIMB 04/20/2012 Ot 305.1 TOBACCO USE DISORDER 04/20/2012 Ot 401.9 HYPERTENSION NOS 04/20/2012 Ot 440.21 ATHEROSCL YAVAPAI-APACHE ARTER EXTREM W INTERMIT 04/20/2012 Ot 440.4 CHRONIC TOTAL OCCLUSION OF ARTERY OF THE 05/17/2012 Ot 211.3 BENIGN NEOPLASM LG BOWEL 05/17/2012 Ot 562.10 DIVERTICULOSIS COLON (W/O MENT OF HEMORR 05/17/2012 Ot V58.63 LONG-TERM( CURRENT)USE OF ANTIPLATELET/AN 05/17/2012 Ot V76.51 SCREEN MAL [...] 10/30/2012 733.00 OSTEOPOROSIS 10/30/2012 RUSSELL BRENNER MD M 305.1 NICOTINE DEPENDENCE 10/30/2012 RUSSELL BRENNER MD M 401.1 ESSENTIAL HYPERTENSION BENIGN 10/30/2012 ELIDIA MOSHER, RUSSELL M 443.9 INTERMITTENT CLAUDICATION 10/30/2012 RUSSELL BRENNER MD M 733.00 OSTEOPOROSIS 10/30/2012 RUSSELL BRENNER MD M 305.1 NICOTINE DEPENDENCE 10/30/2012 RUSSELL BRENNER MD M 401.1 ESSENTIAL HYPERTENSION BENIGN 10/30/2012 RUSSELL BRENNER MD M 443.9 INTERMITTENT CLAUDICATION 10/30/2012 RUSSELL BRENNER MD M 733.00 OSTEOPOROSIS 10/30/2012 MADPaula INTERNAL COMBUSTION ENGINEER, MANI L 305.1 NICOTINE DEPENDENCE 10/30/2012 MADL INTERNAL COMBUSTION ENGINEER, MANI L 401.1 ESSENTIAL HYPERTENSION BENIGN 10/30/2012 MADL INTERNAL COMBUSTION ENGINEER, MANI L 443.9 INTERMITTENT CLAUDICATION 10/30/2012 MADL INTERNAL COMBUSTION ENGINEER, MANI L 733.00 OSTEOPOROSIS 10/30/2012 MADL INTERNAL COMBUSTION ENGINEER, MANI L 305.1 NICOTINE DEPENDENCE 10/30/2012 MADL INTERNAL COMBUSTION ENGINEER, MANI L 401.1 ESSENTIAL HYPERTENSION BENIGN 10/30/2012 MADL INTERNAL COMBUSTION ENGINEER, MANI L 443.9 INTERMITTENT CLAUDICATION 10/30/2012 MADL INTERNAL COMBUSTION ENGINEER, MANI L 733.00 OSTEOPOROSIS 10/30/2012 ADEN INTERNAL COMBUSTION ENGINEER, FATEMEH A 305.1 NICOTINE DEPENDENCE 10/30/2012 ADEN INTERNAL COMBUSTION ENGINEER, FATEMEH A 401.1 ESSENTIAL HYPERTENSION BENIGN 10/30/2012 ADEN INTERNAL COMBUSTION ENGINEER, FATEMEH A 443.9 INTERMITTENT CLAUDICATION 10/30/2012 ADEN INTERNAL COMBUSTION ENGINEER, FATEMEH A 733.00 OSTEOPOROSIS 10/30/2012 MADL INTERNAL COMBUSTION ENGINEER, MANI L 305.1 NICOTINE DEPENDENCE 10/30/2012 MADL INTERNAL COMBUSTION ENGINEER, MANI L 401.1 ESSENTIAL HYPERTENSION BENIGN 10/30/2012 MADL INTERNAL COMBUSTION ENGINEER, MANI L 443.9 INTERMITTENT CLAUDICATION 10/30/2012 MADL INTERNAL COMBUSTION ENGINEER, MANI L 733.00 OSTEOPOROSIS 11/12/2012 RUSSELL BRENNER MD 599.70 HEMATURIA 11/12/2012 599.70 HEMATURIA 11/12/2012 599.70 HEMATURIA 11/12/2012 RUSSELL BRENNER MD 599.70 HEMATURIA 11/12/2012 RUSSELL BRENNER MD 599.70 HEMATURIA 11/12/2012 MADL INTERNAL COMBUSTION ENGINEER, MANI L 599.70 HEMATURIA 11/12/2012 MADL INTERNAL COMBUSTION ENGINEER, MANI L 599.70 HEMATURIA 11/12/2012 ADEN INTERNAL COMBUSTION ENGINEER, FATEMEH A 599.70 HEMATURIA 11/12/2012 MADL INTERNAL COMBUSTION ENGINEER, MANI L 599.70 HEMATURIA 12/13/2012 Ot 562.10 DIVERTICULOSIS COLON (W/O MENT OF HEMORR 12/13/2012 Ot V12.72 PERSONAL HISTORY OF COLONIC POLYPS 12/13/2012 Ot V67.09 SURGERY FOLLOW-UP, OTHER SURGERY 12/25/2012 272.4 HYPERLIPIDEMIA 12/25/2012 272.4 HYPERLIPIDEMIA 12/25/2012 RUSSELL BRENNER MD 272.4 HYPERLIPIDEMIA 12/25/2012 RUSSELL BRENNER MD 272.4 HYPERLIPIDEMIA 12/25/2012 MADL INTERNAL COMBUSTION ENGINEER, MANI L 272.4 HYPERLIPIDEMIA 12/25/2012 RODGER CADET, MANI L 272.4 HYPERLIPIDEMIA 12/25/2012 ADENBUTCH CADET, FATEMEH A 272.4 HYPERLIPIDEMIA 12/25/2012 MADPaula INTERNAL COMBUSTION ENGINEER, MANI L 272.4 HYPERLIPIDEMIA 05/28/2013 RUSSELL BRENNER MD 477.9 ALLERGIC RHINITIS CAUSE UNSPECIFIED 05/28/2013 RUSSELL BRENNER MD 701.9 UNSPECIFIED HYPERTROPHIC AND ATROPHIC CONDITIONS OF SKIN 05/28/2013 RUSSELL BRENNER MD V04.81 FLU SHOT 05/28/2013 RUSSELL BRENNER MD 477.9 ALLERGIC RHINITIS CAUSE UNSPECIFIED 05/28/2013 RUSSELL BRENNER MD 701.9 UNSPECIFIED HYPERTROPHIC AND ATROPHIC CONDITIONS OF SKIN 05/28/2013 RUSSELL BRENNER MD V04.81 FLU SHOT 05/28/2013 MANI SOARES APRN 477.9 ALLERGIC RHINITIS CAUSE UNSPECIFIED 05/28/2013 THOMAS SOARES APRNA L 701.9 UNSPECIFIED HYPERTROPHIC AND ATROPHIC CONDITIONS OF SKIN 05/28/2013 THOMAS SOARES APRNA L V04.81 FLU SHOT 05/28/2013 NIKKO SOARES APRNNYA L 477.9 ALLERGIC RHINITIS CAUSE UNSPECIFIED 05/28/2013 VANESSAL HELIO, MANI L 701.9 UNSPECIFIED HYPERTROPHIC AND ATROPHIC CONDITIONS OF SKIN 05/28/2013 THOMAS SOARES APRNA L V04.81 FLU SHOT 05/28/2013 ADEN CADET, FATEMEH A 477.9 ALLERGIC RHINITIS CAUSE UNSPECIFIED 05/28/2013 ADEN INTERNAL COMBUSTION ENGINEER, FATEMEH A 701.9 UNSPECIFIED HYPERTROPHIC AND ATROPHIC CONDITIONS OF SKIN 05/28/2013 ADEN INTERNAL COMBUSTION ENGINEER, FATEMEH A V04.81 FLU SHOT 05/28/2013 THOMAS SOARES APRNA L 477.9 ALLERGIC RHINITIS CAUSE UNSPECIFIED 05/28/2013 NIKKO SOARES APRNNYA L 701.9 UNSPECIFIED HYPERTROPHIC AND ATROPHIC CONDITIONS OF SKIN 05/28/2013 THOMAS SOARES APRNA L V04.81 FLU SHOT 01/02/2014 JORGE A MOSHER, MAHSA S Ot 562.10 DIVERTICULOSIS COLON (W/O MENT OF HEMORR 01/02/2014 JORGE A MOSHER, MAHSA S Ot V12.72 PERSONAL HISTORY OF COLONIC POLYPS 01/02/2014 JORGE A MOSHER, MAHSA S Ot V76.51 SCREEN MAL NEOP-COLON 03/27/2014 THOMAS SOARES APRNA L 702.0 ACTINIC KERATOSIS 03/27/2014 THOMAS SOARES APRNA L 702.0 ACTINIC KERATOSIS 03/27/2014 FATEMEH SAMANIEGO APRN A 702.0 ACTINIC KERATOSIS 03/27/2014 THOMAS SOARES APRNA L 702.0 ACTINIC KERATOSIS 05/26/2014 FATEMEH SAMANIEGO APRN A V65.42 COUNSELING - SMOKING CESSATION 05/26/2014 FATEMEH SAMANIEGO APRN A V72.31 COMIC WRITER EXAM, ROUTINE 05/26/2014 FATEMEH SAMANIEGO APRN A V76.10 BREAST CANCER SCREENING 05/26/2014 MANI SOARES APRN V65.42 COUNSELING - SMOKING CESSATION 05/26/2014 MANI SOARES APRN V72.31 COMIC WRITER EXAM, ROUTINE 05/26/2014 MANI SOARES APRN V76.10 BREAST CANCER SCREENING 2014 MANI SOARES APRN 465.9 UPPER RESPIRATORY INFECTION 10/30/2014 BAIMA PROMISE L DOLL SURGEON Ot 272.4 10/30/2014 BAIMA, PROMISE L DOLL SURGEON Ot 305.1 10/30/2014 BAIMA, PROMISE L DOLL SURGEON Ot 401.9 10/30/2014 BAIMA, PROMISE L DOLL SURGEON Ot 443.9 10/30/2014 BAIMA, PROMISE L DOLL SURGEON Ot 785.9 10/30/2014 BAIMA, PROMISE L DOLL SURGEON Ot 786.09 05/12/2015 BAIMA, PROMISE L DOLL SURGEON Ot 272.4 05/13/2015 BAIMA, PROMISE L DOLL SURGEON Ot 272.4 05/13/2015 BAIMA, PROMISE L DOLL SURGEON Ot 272.4 05/28/2015 BAIMA, PROMISE L DOLL SURGEON Ot 272.4 06/03/2015 BAIMA, PROMISE L DOLL SURGEON Ot 272.4 06/26/2015 Ot 733.00 06/26/2015 Ot [...] 06/26/2015 Ot V72.84 06/26/2015 ELIDIA MOSHER, RUSSELL Aguero Ot 733.90 06/26/2015 ELIDIA MOSHER, RUSSELL Aguero Ot V76.12 06/26/2015 BAIMA, PROMISE L DOLL SURGEON Ot 272.4 06/26/2015 JORGE A MOSHER, MAHSA Ford Ot V72.84 06/26/2015 BAIMA, PROMISE L DOLL SURGEON Ot 272.4 06/26/2015 FATEMEH SAMANIEGO APRN Ot V76.12 06/26/2015 BAIMA, PROMISE L DOLL SURGEON Ot 272.4 06/26/2015 BAIMA, PROMISE L DOLL SURGEON Ot 305.1 06/26/2015 BAIMA, PROMISE L DOLL SURGEON Ot 401.9 06/26/2015 BAIMA, PROMISE L DOLL SURGEON Ot 443.9 06/26/2015 BAIMA, PROMISE L DOLL SURGEON Ot 785.9 06/26/2015 BAIMA, PROMISE L DOLL SURGEON Ot 786.09 06/26/2015 BAIMA, PROMISE L DOLL SURGEON Ot 272.4 07/21/2015 MADLTHOMASA L DOLL SURGEON Ot Z12.31 08/04/2015 MADL, MANI L DOLL SURGEON Ot Z12.31 11/05/2015 Ot 733.00 11/05/2015 Ot [...] Aguero Ot 733.90 11/05/2015 ELIDIA MOSHER, RUSSELL M Ot V76.12 11/05/2015 BAIMA, PROMISE L DOLL SURGEON Ot 272.4 11/05/2015 JORGE A MOSHER, MAHSA Liliana Ot V72.84 11/05/2015 BAIMA, PROMISE L DOLL SURGEON Ot 272.4 11/05/2015 ADEN FATEMEH Craig HELIO Ot V76.12 11/05/2015 BAIMA, PROMISE L DOLL SURGEON Ot 272.4 11/05/2015 BAIMA, PROMISE L DOLL SURGEON Ot 305.1 11/05/2015 BAIMA, PROMISE L DOLL SURGEON Ot 401.9 11/05/2015 BAIMA, PROMISE L DOLL SURGEON Ot 443.9 11/05/2015 BAIMA, PROMISE L DOLL SURGEON Ot 785.9 11/05/2015 BAIMA, PROMISE L DOLL SURGEON Ot 786.09 11/05/2015 BAIMA, PROMISE L DOLL SURGEON Ot 272.4 11/05/2015 MADL, MANI L DOLL SURGEON Ot Z12.31 11/26/2015 MADL, MANI L DOLL SURGEON Ot M81.0 12/07/2015 MADL, MANI L DOLL SURGEON Ot M81.0 08/24/2016 Ot 733.00 OSTEOPOROSIS NOS 08/24/2016 Ot V76.12 OTH SCREEN MAMMO-MALIGN NEOPLASM OF AC 08/24/2016 Ot 401.9 HYPERTENSION NOS 08/24/2016 Ot 701.1 KERATODERMA, ACQUIRED 08/24/2016 Ot 791.9 ABN URINE FINDINGS NEC 08/24/2016 Ot V49.81 ASYMPT POSTMENOPAUSAL STATUS (AGE-RELATE 08/24/2016 Ot V72.84 EXAM PRE- OPERATIVE NOS 08/24/2016 Ot 272.4 HYPERLIPIDEMIA NEC/NOS 08/24/2016 [...] RESPIRATORY ABNORM NEC 08/24/2016 Ot V72.84 EXAM PRE- OPERATIVE NOS 08/24/2016 Ot V72.84 EXAM PRE- OPERATIVE NOS 08/24/2016 Ot V72.84 EXAM PRE- OPERATIVE NOS 08/24/2016 RUSSELL BRENNER MD Ot 733.90 BONE CARTILAGE DIS NOS 08/24/2016 RUSSELL BRENNER MD Ot V76.12 OTH SCREEN MAMMO-MALIGN NEOPLASM OF AC 08/24/2016 BAIMA, PROMISE L DOLL SURGEON Ot 272.4 HYPERLIPIDEMIA NEC/NOS 08/24/2016 JORGE A MOSHER, MAHSA Ford Ot V72.84 EXAM PRE-OPERATIVE NOS 08/24/2016 BAIMA, PROMISE L DOLL SURGEON Ot 272.4 HYPERLIPIDEMIA NEC/NOS 08/24/2016 FATEMEH SAMANIEGO APRN Ot V76.12 OTH SCREEN MAMMO-MALIGN NEOPLASM OF AC 08/24/2016 BAIMA, PROMISE L DOLL SURGEON Ot 272.4 HYPERLIPIDEMIA NEC/NOS 08/24/2016 BAIMA, PROMISE L DOLL SURGEON Ot 305.1 TOBACCO USE DISORDER 08/24/2016 BAIMA, PROMISE L DOLL SURGEON Ot 401.9 HYPERTENSION NOS 08/24/2016 BAIMA, PROMISE L DOLL SURGEON Ot 443.9 PERIPH VASCULAR DIS NOS 08/24/2016 BAIMA, PROMISE L DOLL SURGEON Ot 785.9 CARDIOVAS SYS SYMP NEC 08/24/2016 BAIMA, PROMISE L DOLL SURGEON Ot 786.09 RESPIRATORY ABNORM NEC 08/24/2016 BAIMA, PROMISE L DOLL SURGEON Ot 272.4 HYPERLIPIDEMIA NEC/NOS 08/24/2016 MANI SOARES L DOLL SURGEON Ot Z12.31 ENCNTR SCREEN MAMMOGRAM FOR MALIGNANT NE 08/24/2016 VANESSAL, MANI Mitchell DOLL SURGEON Ot M81.0 AGE-RELATED OSTEOPOROSIS W/O CURRENT PAT 08/25/2016 MADL, MANI Mitchell DOLL SURGEON Ot Z12.31 ENCNTR SCREEN MAMMOGRAM FOR MALIGNANT NE 08/25/2016 MADL, MANI Mitchell DOLL SURGEON Ot Z12.31 ENCNTR SCREEN MAMMOGRAM FOR MALIGNANT NE 08/25/2016 MADL, MANI L DOLL SURGEON Ot Z12.31 ENCNTR SCREEN MAMMOGRAM FOR MALIGNANT NE 08/25/2016 MADL, MANI L DOLL SURGEON Ot Z12.31 ENCNTR SCREEN MAMMOGRAM FOR MALIGNANT NE 09/15/2016 MADL, MANI L DOLL SURGEON Ot Z12.31 ENCNTR SCREEN MAMMOGRAM FOR MALIGNANT NE 2016 MADL, MANI Mitchell DOLL SURGEON Ot Z12.31 ENCNTR SCREEN MAMMOGRAM FOR MALIGNANT NE 09/23/2016 CHARLOTTE MOSHER FACC, KAYLIN FACP CCDS Ot 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 09/27/2016 MADL, MANI L DOLL SURGEON Ot R92.8 OTH ABN AND INCONCLUSIVE FINDINGS ON DX 09/28/2016 CHARLOTTE MOSHER FACC, KAYLIN FACP CCDS Ot 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 10/14/2016 MADL, MANI L DOLL SURGEON Ot R92.8 OTH ABN AND INCONCLUSIVE FINDINGS ON DX 10/21/2016 KAYLIN PORTER MD, FACCP CCDS Ot E78.4 OTHER HYPERLIPIDEMIA 10/21/2016 CHARLOTTE MOSHER FACC, KAYLIN FACP CCDS Ot I10 ESSENTIAL (PRIMARY) HYPERTENSION 10/21/2016 CHARLOTTE MOSHER FACC, KAYLIN FACP CCDS Ot 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 10/21/2016 CHARLOTTE MOSHER FACC, KAYLIN FACP CCDS Ot 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 10/21/2016 KAYLIN PORTER MD, FACC FACP CCDS Ot Z72.0 TOBACCO USE 10/24/2016 MADL, MANI L DOLL SURGEON Ot R92.8 OTH ABN AND INCONCLUSIVE FINDINGS ON DX 10/28/2016 CHARLOTTE MD FACC, ALI FACP CCDS Ot E78.4 OTHER HYPERLIPIDEMIA 10/28/2016 CHARLOTTE MOSHER FACC, ALI FACP CCDS Ot I10 ESSENTIAL (PRIMARY) HYPERTENSION 10/28/2016 CHARLOTTE MOSHER FACC, ALI FACP CCDS Ot 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 10/28/2016 CHARLOTTE MOSHER FACC, ALI FACP CCDS Ot 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HE ARTERIES OF EXTRM W [facility] 10/28/2016 CHARLOTTE MOSHER FACC, ALI FACP CCDS Ot Z72.0 TOBACCO USE 11/08/2016 CHARLOTTE MOSHER FACC, ALI FACP CCDS Ot E78.5 HYPERLIPIDEMIA, UNSPECIFIED 11/08/2016 CHARLOTTE MOSHER FACC, ALI FACP CCDS Ot H35.30 UNSPECIFIED MACULAR DEGENERATION 11/08/2016 CHARLOTTE MOSHER FACC, ALI FACP CCDS Ot I10 ESSENTIAL (PRIMARY) HYPERTENSION 11/08/2016 CHARLOTTE MOSHER FACC, ALI FACP CCDS Ot I70.0 ATHEROSCLEROSIS OF [place] 11/08/2016 CHARLOTTE MOSHER FACC, ALI FACP CCDS Ot 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HE ARTERIES OF EXTRM W [facility] 11/08/2016 CHARLOTTE MOSHER FACC, ALI FACP CCDS Ot I70.92 CHRONIC TOTAL OCCLUSION OF ARTERY OF THE 11/08/2016 CHARLOTTE MOSHER FACC, ALI FACP CCDS Ot R06.09 OTHER FORMS OF DYSPNEA 11/08/2016 CHARLOTTE MOSHER FACC, ALI FACP CCDS Ot Z72.0 TOBACCO USE 11/08/2016 CHARLOTTE MESSERC, ALI FACP CCDS Ot Z79.899 OTHER MCFP (CURRENT) DRUG THERAPY 11/08/2016 CHARLOTTE MOSHER FACC, ALI FACP CCDS Ot Z95.820 PERIPHERAL VASCULAR ANGIOPLASTY STATUS W 11/18/2016 More FERNANDEZ MD Ot I10 ESSENTIAL (PRIMARY) HYPERTENSION 11/18/2016 More FERNANDEZ MD Ot 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 ARTERIES OF EXTRM W [facility] 11/18/2016 More FERNANDEZ MD Ot I70.92 CHRONIC TOTAL OCCLUSION OF ARTERY OF THE 11/18/2016 More FERNANDEZ MD Ot Z72.0 TOBACCO USE 11/18/2016 More FERNANDEZ MD Ot Z79.899 OTHER MCFP (CURRENT) DRUG THERAPY 11/28/2016 CHARLOTTE MOSHER FACC, ALI FACP CCDS Ot E78.5 HYPERLIPIDEMIA, UNSPECIFIED 11/28/2016 CHARLOTTE MOSHER FACC, ALI FACP CCDS Ot H35.30 UNSPECIFIED MACULAR DEGENERATION 11/28/2016 CHARLOTTE MOSHER FACC, ALI FACP CCDS Ot I10 ESSENTIAL (PRIMARY) HYPERTENSION 11/28/2016 CHARLOTTE MOSHER FACC, ALI FACP CCDS Ot I70.0 ATHEROSCLEROSIS OF [place] 11/28/2016 CHARLOTTE MOSHER FACC, ALI FACP CCDS Ot 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 11/28/2016 CHARLOTTE MOSHER FACC, ALI FACP CCDS Ot I70.92 CHRONIC TOTAL OCCLUSION OF ARTERY OF THE 11/28/2016 CHARLOTTE MOSHER FACVaishali, ALI FACP CCDS Ot R06.09 OTHER FORMS OF DYSPNEA 11/28/2016 CHARLOTTE MOSHER FACC, ALI FACP CCDS Ot Z72.0 TOBACCO USE 11/28/2016 CHARLOTTE MOSHER FACC, ALI FACP CCDS Ot Z79.899 OTHER [facility] (CURRENT) DRUG THERAPY 11/28/2016 CHARLOTTE MOSHER FACVaishali, ALI FACP CCDS Ot Z95.820 PERIPHERAL VASCULAR ANGIOPLASTY STATUS W 12/08/2016 More FERNANDEZ MD Ot I10 ESSENTIAL (PRIMARY) HYPERTENSION 12/08/2016 More FERNANDEZ MD Ot 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 12/08/2016 More FERNANDEZ MD Ot I70.92 CHRONIC TOTAL OCCLUSION OF ARTERY OF THE 12/08/2016 More FERNANDEZ MD Ot Z72.0 TOBACCO USE 12/08/2016 More FERNANDEZ MD Ot Z79.899 OTHER [facility]FP (CURRENT) DRUG THERAPY 01/06/2017 More FERNANDEZ MD Ot I10 ESSENTIAL (PRIMARY) HYPERTENSION 01/06/2017 More FERNANDEZ MD Ot 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 01/06/2017 More FERNANDEZ MD Ot I97.638 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 01/06/2017 More FERNANDEZ MD Ot Z72.0 TOBACCO USE 01/06/2017 More FERNANDEZ MD Ot Z79.02 MCFP (CURRENT) USE OF ANTITHROMBOTI 01/06/2017 More FERNANDEZ MD Ot Z79.899 OTHER CNA HHA (CURRENT) DRUG THERAPY 01/12/2017 More FERNANDEZ MD Ot I10 ESSENTIAL (PRIMARY) HYPERTENSION 01/12/2017 More FERNANDEZ MD Ot 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 01/12/2017 More FERNANDEZ MD Ot I97.638 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 01/12/2017 More FERNANDEZ MD Ot Z72.0 TOBACCO USE 01/12/2017 More FERNANDEZ MD Ot Z79.02 CNA HHA (CURRENT) USE OF ANTITHROMBOTI 01/12/2017 More FERNANDEZ MD Ot Z79.899 OTHER CNA HHA (CURRENT) DRUG THERAPY 01/29/2017 More FERNANDEZ MD Ot I10 ESSENTIAL (PRIMARY) HYPERTENSION 01/29/2017 More FERNANDEZ MD Ot 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 ARTERIES OF EXTRM W [facility] 01/29/2017 More FERNANDEZ MD Ot I97.638 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 01/29/2017 More FERNANDEZ MD Ot Z72.0 TOBACCO USE 01/29/2017 More FERNANDEZ MD Ot Z79.02 [facility]FP (CURRENT) USE OF ANTITHROMBOTI 01/29/2017 More FERNANDEZ MD Ot Z79.899 OTHER [facility]FP (CURRENT) DRUG THERAPY 02/08/2017 More FERNANDEZ MD Ot I10 ESSENTIAL (PRIMARY) HYPERTENSION 02/08/2017 More FERNANDEZ MD Ot 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 02/08/2017 More FERNANDEZ MD Ot I97.638 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 02/08/2017 More FERNANDEZ MD Ot Z72.0 TOBACCO USE 02/08/2017 JIM MOSHER, More [place] Ot Z79.02 [facility]FP (CURRENT) USE OF ANTITHROMBOTI 02/08/2017 More FERNANDEZ MD, Ot Z79.899 OTHER CNA HHA (CURRENT) DRUG THERAPY 02/09/2017 More FERNANDEZ MD, Ot I10 ESSENTIAL (PRIMARY) HYPERTENSION 02/09/2017 JIM MOSHER, More [place] Ot 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 02/09/2017 More FERNANDEZ MD, Ot I97.638 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 02/09/2017 More FERNANDEZ MD, Ot Z72.0 TOBACCO USE 02/09/2017 More FERNANDEZ MD, Ot Z79.02 [facility]FP (CURRENT) USE OF ANTITHROMBOTI 02/09/2017 More FERNANDEZ MD, Ot Z79.899 OTHER CNA HHA (CURRENT) DRUG THERAPY 02/13/2017 STAS MASON DO, Ot F17.210 NICOTINE DEPENDENCE, CIGARETTES, UNCOMPL 02/13/2017 STAS MASON DO, Ot I10 ESSENTIAL (PRIMARY) HYPERTENSION 02/13/2017 STAS MASON DO, Ot I73.9 PERIPHERAL VASCULAR DISEASE, UNSPECIFIED 02/13/2017 STAS MASON DO, Ot J44.9 CHRONIC OBSTRUCTIVE PULMONARY DISEASE, U 02/13/2017 STAS MASON DO, Ot S50.312A ABRASION OF LEFT ELBOW, INITIAL ENCOUNTE 02/13/2017 STAS MASON DO, Ot S80.02XA CONTUSION OF LEFT KNEE, INITIAL ENCOUNTE 02/13/2017 STAS MASON DO, Ot S89.92XA UNSPECIFIED INJURY OF LEFT LOWER LEG, IN 02/13/2017 STAS MASON DO, Ot W01.0XXA FALL SAME LEV FROM SLIP/TRIP W/O STRIKE 02/13/2017 STAS MASON DO, Ot Y93.K1 ACTIVITY, WALKING AN ANIMAL 02/13/2017 STAS MASON DO, Ot Y99.8 OTHER EXTERNAL CAUSE STATUS 02/13/2017 STAS MASON DO, Ot Z23 ENCOUNTER FOR IMMUNIZATION 02/13/2017 STAS MASON DO Ot Z79.82 CNA HHA (CURRENT) USE OF ASPIRIN 02/13/2017 STAS MASON DO Ot Z79.899 OTHER CNA HHA (CURRENT) DRUG THERAPY 02/13/2017 STAS MASON DO Ot Z95.828 PRESENCE OF OTHER VASCULAR IMPLANTS AND 02/16/2017 MADL, MANI L DOLL SURGEON Ot Z72.0 TOBACCO USE 02/20/2017 MADL, MANI L DOLL SURGEON Ot Z72.0 TOBACCO USE 02/22/2017 MADL, MANI L DOLL SURGEON Ot Z72.0 TOBACCO USE 02/24/2017 MADL, MANI L DOLL SURGEON Ot Z72.0 TOBACCO USE 02/27/2017 MADL, MANI L DOLL SURGEON Ot Z72.0 TOBACCO USE 03/14/2017 JEAN SINHA DO Ot F17.210 NICOTINE DEPENDENCE, CIGARETTES, UNCOMPL 03/14/2017 JEAN SINHA DO Ot I10 ESSENTIAL (PRIMARY) HYPERTENSION 03/14/2017 JEAN SINHA DO Ot I25.10 ATHSCL HEART DISEASE OF [place] CORONARY 03/14/2017 JEAN SINHA DO Ot I73.9 PERIPHERAL VASCULAR DISEASE, UNSPECIFIED 03/14/2017 JEAN SINHA DO Ot J44.9 CHRONIC OBSTRUCTIVE PULMONARY DISEASE, U 03/14/2017 JEAN SINHA DO Ot M25.462 EFFUSION, LEFT KNEE 03/14/2017 JEAN SINHA DO Ot S80.02XA CONTUSION OF LEFT KNEE, INITIAL ENCOUNTE 03/14/2017 JEAN SINHA DO Ot W19.XXXA UNSPECIFIED FALL, INITIAL ENCOUNTER 03/14/2017 JEAN SINHA DO Ot Y99.8 OTHER EXTERNAL CAUSE STATUS 03/14/2017 JEAN SINHA DO Ot Z95.5 PRESENCE OF CORONARY ANGIOPLASTY IMPLANT 03/14/2017 JEAN SINHA DO Ot F17.210 NICOTINE DEPENDENCE, CIGARETTES, UNCOMPL 03/14/2017 JEAN SINHA DO Ot I10 ESSENTIAL (PRIMARY) HYPERTENSION 03/14/2017 JEAN SINHA DO Ot I25.10 ATHSCL HEART DISEASE OF [place] CORONARY 03/14/2017 JEAN SINHA DO Ot I73.9 PERIPHERAL VASCULAR DISEASE, UNSPECIFIED 03/14/2017 JEAN SINHA DO Ot J44.9 CHRONIC OBSTRUCTIVE PULMONARY DISEASE, U 03/14/2017 JEAN SINHA DO Ot M25.462 EFFUSION, LEFT KNEE 03/14/2017 JEAN SINHA DO Ot S80.02XA CONTUSION OF LEFT KNEE, INITIAL ENCOUNTE 03/14/2017 JEAN SINHA DO Ot W19.XXXA UNSPECIFIED FALL, INITIAL ENCOUNTER 03/14/2017 JEAN SINHA DO Ot Y99.8 OTHER EXTERNAL CAUSE STATUS 03/14/2017 JEAN SINHA DO Ot Z95.5 PRESENCE OF CORONARY ANGIOPLASTY IMPLANT 03/27/2017 MADL, MANI L DOLL SURGEON Ot J43.9 EMPHYSEMA, UNSPECIFIED 03/27/2017 MADL, MANI L DOLL SURGEON Ot Z72.0 TOBACCO USE 03/27/2017 MADL, MANI L DOLL SURGEON Ot J43.9 EMPHYSEMA, UNSPECIFIED 03/27/2017 MADL, MANI L DOLL SURGEON Ot Z72.0 TOBACCO USE 03/27/2017 MADL, MANI L DOLL SURGEON Ot J43.9 EMPHYSEMA, UNSPECIFIED 03/27/2017 MADL, MANI L DOLL SURGEON Ot Z72.0 TOBACCO USE 03/27/2017 MADL, MANI L DOLL SURGEON Ot J43.9 EMPHYSEMA, UNSPECIFIED 03/27/2017 MADL, MANI L DOLL SURGEON Ot Z72.0 TOBACCO USE 03/27/2017 MADL, MANI L DOLL SURGEON Ot J43.9 EMPHYSEMA, UNSPECIFIED 03/27/2017 MADL, MANI L DOLL SURGEON Ot Z72.0 TOBACCO USE 05/01/2017 MADL, MANI L DOLL SURGEON Ot J43.9 EMPHYSEMA, UNSPECIFIED 05/01/2017 MADL, MANI L DOLL SURGEON Ot Z72.0 TOBACCO USE 06/15/2017 MADL, MANI L DOLL SURGEON Ot R92.8 OTH ABN AND INCONCLUSIVE FINDINGS ON DX 06/19/2017 MADL, MANI L DOLL SURGEON Ot R92.8 OTH ABN AND INCONCLUSIVE FINDINGS ON DX 06/27/2017 MADL, MANI L DOLL SURGEON Ot R92.1 MAMMOGRAPHIC CALCIFCN FOUND ON DIAGNOSTI 07/18/2017 MADL, MANI L DOLL SURGEON Ot R92.1 MAMMOGRAPHIC CALCIFCN FOUND ON DIAGNOSTI 07/25/2017 BAIMAPROMISE DOLL SURGEON Ot E78.4 OTHER HYPERLIPIDEMIA 07/25/2017 BAIMA, PROMISE L DOLL SURGEON Ot I10 ESSENTIAL (PRIMARY) HYPERTENSION 07/25/2017 BAIMA, PROMISE L DOLL SURGEON Ot I31.3 PERICARDIAL EFFUSION (NONINFLAMMATORY) 07/25/2017 BAIMA, PROMISE L DOLL SURGEON Ot 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 07/25/2017 BAIMA, PROMISE L DOLL SURGEON Ot 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 07/26/2017 VANESSALMANI DOLL SURGEON Ot R92.1 MAMMOGRAPHIC CALCIFCN FOUND ON DIAGNOSTI 08/15/2017 BAIMA PROMISE L DOLL SURGEON Ot E78.4 OTHER HYPERLIPIDEMIA 08/15/2017 BAIMA, PROMISE L DOLL SURGEON Ot I10 ESSENTIAL (PRIMARY) HYPERTENSION 08/15/2017 BAIMA, PROMISE L DOLL SURGEON Ot I31.3 PERICARDIAL EFFUSION (NONINFLAMMATORY) 08/15/2017 BAIMA, PROMISE L DOLL SURGEON Ot 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 08/15/2017 BAIMA, PROMISE L DOLL SURGEON Ot 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 ARTERIES OF EXTRM W [facility] 12/22/2017 CJ PEGUERO MD Ot Z01.818 ENCOUNTER FOR OTHER PREPROCEDURAL EXAMIN 12/22/2017 CJ PEGUERO MD Ot Z12.11 ENCOUNTER FOR SCREENING FOR MALIGNANT NE 12/22/2017 CJ PEGUERO MD Ot Z86.010 PERSONAL HISTORY OF COLONIC POLYPS 12/25/2017 CJ PEGUERO MD Ot Z01.818 ENCOUNTER FOR OTHER PREPROCEDURAL EXAMIN 12/25/2017 CJ PEGUERO MD Ot Z12.11 ENCOUNTER FOR SCREENING FOR MALIGNANT NE 12/25/2017 CJ PEGUERO MD Ot Z86.010 PERSONAL HISTORY OF COLONIC POLYPS 12/27/2017 Ot V72.84 EXAM PRE- OPERATIVE NOS 12/27/2017 RUSSELL BRENNER MD Ot 733.90 BONE CARTILAGE DIS NOS 12/27/2017 RUSSELL BRENNER MD Ot V76.12 OT SCREEN MAMMO-MALIGN NEOPLASM OF AC 12/27/2017 PROMISE VALENTIN L DOLL SURGEON Ot 272.4 HYPERLIPIDEMIA NEC/NOS 12/27/2017 JORGE A MOSHER, MAHSA Ford Ot V72.84 EXAM PRE-OPERATIVE NOS 12/27/2017 BAIPROMISE JO L DOLL SURGEON Ot 272.4 HYPERLIPIDEMIA NEC/NOS 12/27/2017 FATEMEH SAMANIEGO APRN Ot V76.12 OTH SCREEN MAMMO-MALIGN NEOPLASM OF AC 12/27/2017 BAIPROMISE JO L DOLL SURGEON Ot 272.4 HYPERLIPIDEMIA NEC/NOS 12/27/2017 BAIMA PROMISE L DOLL SURGEON Ot 305.1 TOBACCO USE DISORDER 12/27/2017 BAIDEYSI PROMISE L DOLL SURGEON Ot 401.9 HYPERTENSION NOS 12/27/2017 BAIDEYSI PROMISE L DOLL SURGEON Ot 443.9 PERIPH VASCULAR DIS NOS 12/27/2017 BAIDEYSI PROMISE L DOLL SURGEON Ot 785.9 CARDIOVAS SYS SYMP NEC 12/27/2017 BAIDANIELLE JOHER L DOLL SURGEON Ot 786.09 RESPIRATORY ABNORM NEC 12/27/2017 DANIELLE VALENTINHER L DOLL SURGEON Ot 272.4 HYPERLIPIDEMIA NEC/NOS 12/27/2017 MADL, MANI L DOLL SURGEON Ot Z12.31 ENCNTR SCREEN MAMMOGRAM FOR MALIGNANT NE 12/27/2017 MADL, MANI L DOLL SURGEON Ot M81.0 AGE-RELATED OSTEOPOROSIS W/O CURRENT PAT 12/27/2017 MADL, MANI L DOLL SURGEON Ot Z12.31 ENCNTR SCREEN MAMMOGRAM FOR MALIGNANT NE 12/27/2017 CHARLOTTE MOSHER FACC, KAYLIN FACP CCDS Ot E78.4 OTHER HYPERLIPIDEMIA 12/27/2017 CHARLOTTE MOSHER FACC, ALI FACP CCDS Ot I10 ESSENTIAL (PRIMARY) HYPERTENSION 12/27/2017 CHARLOTTE MOSHER FACC, ALI FACP CCDS Ot 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 12/27/2017 CHARLOTTE MOSHER FACC, KAYLIN FACP CCDS Ot 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 12/27/2017 CHARLOTTE MOSHER FACC, ALI FACP CCDS Ot Z72.0 TOBACCO USE 12/27/2017 MADL, MANI L DOLL SURGEON Ot R92.8 OTH ABN AND INCONCLUSIVE FINDINGS ON DX 12/27/2017 VANESSAL, MANI L DOLL SURGEON Ot J43.9 EMPHYSEMA, UNSPECIFIED 12/27/2017 RODGERMANI Paula DOLL SURGEON Ot Z72.0 TOBACCO USE 12/27/2017 IKEPROMISE JO L DOLL SURGEON Ot E78.4 OTHER HYPERLIPIDEMIA 12/27/2017 IKEPROMISE JO L DOLL SURGEON Ot I10 ESSENTIAL (PRIMARY) HYPERTENSION 12/27/2017 IKEPROMISE JO L DOLL SURGEON Ot I31.3 PERICARDIAL EFFUSION (NONINFLAMMATORY) 12/27/2017 IKEPROMISE JO L DOLL SURGEON Ot 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 12/27/2017 IKEPROMISE JO L DOLL SURGEON Ot 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 12/27/2017 MANI SOARES DOLL SURGEON Ot R92.1 MAMMOGRAPHIC CALCIFCN FOUND ON DIAGNOSTI 12/29/2017 Ot V72.84 EXAM PRE- OPERATIVE NOS 12/29/2017 ELIDIA MOSHER, RUSSELL Aguero Ot 733.90 BONE CARTILAGE DIS NOS 12/29/2017 RUSSELL BRENNER MD Ot V76.12 OTH SCREEN MAMMO-MALIGN NEOPLASM OF AC 12/29/2017 BAIPROMISE JO L DOLL SURGEON Ot 272.4 HYPERLIPIDEMIA NEC/NOS 12/29/2017 JORGE A MOSHER, MAHSA Ford Ot V72.84 EXAM PRE-OPERATIVE NOS 12/29/2017 BAIPROMISE JO L DOLL SURGEON Ot 272.4 HYPERLIPIDEMIA NEC/NOS 12/29/2017 FATEMEH SAMANIEGO APRN Ot V76.12 OTH SCREEN MAMMO-MALIGN NEOPLASM OF AC 12/29/2017 BAIDANIELLE JOHER L DOLL SURGEON Ot 272.4 HYPERLIPIDEMIA NEC/NOS 12/29/2017 BAIDEYSI PROMISE L DOLL SURGEON Ot 305.1 TOBACCO USE DISORDER 12/29/2017 IKEDEYSI PROMISE L DOLL SURGEON Ot 401.9 HYPERTENSION NOS 12/29/2017 IKEDEYSI PROMISE L DOLL SURGEON Ot 443.9 PERIPH VASCULAR DIS NOS 12/29/2017 BAIDEYSI PROMISE L DOLL SURGEON Ot 785.9 CARDIOVAS SYS SYMP NEC 12/29/2017 BARBIE PROMISE L DOLL SURGEON Ot 786.09 RESPIRATORY ABNORM NEC 12/29/2017 BARBIE PROMISE L DOLL SURGEON Ot 272.4 HYPERLIPIDEMIA NEC/NOS 12/29/2017 RODGER MANI L DOLL SURGEON Ot Z12.31 ENCNTR SCREEN MAMMOGRAM FOR MALIGNANT NE 12/29/2017 MANI SOARES DOLL SURGEON Ot M81.0 AGE-RELATED OSTEOPOROSIS W/O CURRENT PAT 12/29/2017 MANI SOARES DOLL SURGEON Ot Z12.31 ENCNTR SCREEN MAMMOGRAM FOR MALIGNANT NE 12/29/2017 CHARLOTTE MOSHER FACC, ALI FACP CCDS Ot E78.4 OTHER HYPERLIPIDEMIA 12/29/2017 CHARLOTTE MOSHER FACC, ALI FACP CCDS Ot I10 ESSENTIAL (PRIMARY) HYPERTENSION 12/29/2017 CHARLOTTE MOSHER FACVaishali, ALI FACP CCDS Ot 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 12/29/2017 CHARLOTTE MOSHER FACC, ALI FACP CCDS Ot 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 12/29/2017 CHARLOTTE MOSHER FACVaishali, ALI FACP CCDS Ot Z72.0 TOBACCO USE 12/29/2017 MADL, MANI Mitchell DOLL SURGEON Ot R92.8 OTH ABN AND INCONCLUSIVE FINDINGS ON DX 12/29/2017 MANI SOARES DOLL SURGEON Ot J43.9 EMPHYSEMA, UNSPECIFIED 12/29/2017 MADL, MANI Mitchell DOLL SURGEON Ot Z72.0 TOBACCO USE 12/29/2017 BAIMAPROMISE L DOLL SURGEON Ot E78.4 OTHER HYPERLIPIDEMIA 12/29/2017 BAIMA PROMISE L DOLL SURGEON Ot I10 ESSENTIAL (PRIMARY) HYPERTENSION 12/29/2017 BAIDEYSI PROMISE L DOLL SURGEON Ot I31.3 PERICARDIAL EFFUSION (NONINFLAMMATORY) 12/29/2017 BAIDEYSI PROMISE L DOLL SURGEON Ot 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 12/29/2017 BAIDEYSI PROMISE L DOLL SURGEON Ot 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 12/29/2017 MADLMANI DOLL SURGEON Ot R92.1 MAMMOGRAPHIC CALCIFCN FOUND ON DIAGNOSTI Procedures Code [place] [address] ROUTINE VENIPUNCTURE 11/12/2012 25316 UA LONG DIP 11/12/2012 84145 A1C (IN-HOUSE) 11/12/2012 42565 CBC 11/12/2012 30302 CMP 11/12/2012 79185 LIPID PANEL 11/12/20123086099 GFR CALC (RESULT ONLY) 11/12/2012 41042 VITAMIN D 25-HYDROXY (D2,D3 , TOTAL) 11/12/2012 74706 TSH 11/12/2012 36977 ROUTINE VENIPUNCTURE 04/25/2013 66093 LIPID PANEL 04/25/2013 94290 TSH 04/25/2013 G0008 FLU ADMINISTRATION ( MEDICARE ONLY) 05/28/2013 93128 CRYOTHERAPY OF SKIN 03/27/2014 24036 MAMMOGRAM, SCREENING 05/26/2014 Results Test Result Range CBC With Differential/Platelet - 08/12/16 09:58 WBC 6.6 x10E3/uL 3.4-10.8 RBC 5.17 x10E6/uL 3.77-5.28 Hemoglobin 15.2 g/dL 11.1-15.9 Hematocrit 45.9 % 34.0-46.6 MCV 89 fL 79-97 MCH 29.4 pg 26.6-33.0 MCHC 33.1 g/dL 31.5-35.7 RDW 13.9 % 12.3-15.4 Platelets 271 x10E3/uL 150-379 Neutrophils 65 % Lymphs 25 % Monocytes 9 % Eos 1 % Basos 0 % Neutrophils (Absolute) 4.3 x10E3/uL 1.4-7.0 Lymphs (Absolute) 1.6 x10E3/uL 0.7-3.1 Monocytes(Absolute) 0.6 x10E3/uL 0.1-0.9 Eos (Absolute) 0.1 x10E3/uL 0.0-0.4 Baso (Absolute) 0.0 x10E3/uL 0.0-0.2 Immature Granulocytes 0 % Immature Grans (Abs) 0.0 x10E3/uL 0.0-0.1 Comp. Metabolic Panel (14) - 08/12/16 09:58 Glucose, Serum 101 mg/dL 65-99 BUN 18 mg/dL 8-27 Creatinine, Serum 1.03 mg/dL 0.57-1.00 eGFR If NonAfricn Am 56 mL/min/1.73 >59 eGFR If Africn Am 64 mL/min/1.73 >59 BUN/Creatinine Ratio 17 11-26 Sodium, Serum 140 mmol/L 136-144 Potassium, Serum 4.3 mmol/L 3.5-5.2 Chloride, Serum 97 mmol/L 97-106 Carbon Dioxide, Total 29 mmol/L 18-29 Calcium, Serum 9.7 mg/dL 8.7-10.3 Protein, Total, Serum 7.1 g/dL 6.0-8.5 Albumin, Serum 4.6 g/dL 3.6-4.8 Globulin, Total 2.5 g/dL 1.5-4.5 A/G Ratio 1.8 1.1-2.5 Bilirubin, Total 0.3 mg/dL 0.0-1.2 Alkaline Phosphatase, S 54 IU/L 39-117 AST (SGOT) 20 IU/L 0-40 ALT (SGPT) 17 IU/L 0-32 Lipid Panel - 08/12/16 09:58 Cholesterol, Total 183 mg/dL 100-199 Triglycerides 205 mg/dL 0-149 HDL Cholesterol 54 mg/dL >39 VLDL Cholesterol Michael 41 mg/dL 5-40 LDL Cholesterol Calc 88 mg/dL 0-99 TSH - 08/12/16 09:58 TSH 2.500 uIU/mL 0.450-4.500 Automated blood complete blood count (hemogram) panel - 11/08/16 07:30 Blood leukocytes automated count (number/volume) 6.3 10*3/uL 4.3-11.0 Blood erythrocytes automated count (number/volume) 5.39 10*6/uL 4.35-5.85 Venous blood hemoglobin measurement (mass/volume) 15.9 [...] Automated blood platelet mean volume measurement 10.2 [foz_us] 7.4-10.4 PT panel in platelet poor plasma [...] Serum or plasma sodium measurement (moles/volume) 143 mmol/L 135-145 Serum or plasma potassium measurement (moles/volume) 4.0 mmol/L 3.6-5.0 Serum or plasma chloride measurement (moles/volume) 105 mmol/L 98-107 Carbon dioxide 28 mmol/L 21-32 Serum or plasma anion gap determination (moles/volume) 10 mmol/L 5-14 Serum or plasma urea nitrogen measurement (mass/volume) 16 mg/dL 7-18 Serum or plasma creatinine measurement (mass/volume) 0.86 mg/dL 0.60-1.30 Serum or plasma urea nitrogen/creatinine mass [...] Serum or plasma cholesterol measurement (mass/volume) 159 mg/dL < 200 Serum or plasma cholesterol in HDL measurement (mass/volume) 56 mg/ dL 40-60 Cholesterol in LDL [mass/volume] in serum or plasma by direct assay 76 mg/dL 1-129 Serum or plasma cholesterol in VLDL measurement (mass/volume) 26 mg/ dL 5-40 Methicillin resistant Staphylococcus aureus (MRSA) screening [...] Serum or plasma sodium measurement (moles/volume) 142 mmol/L 135-145 Serum or plasma potassium measurement (moles/volume) 4.1 mmol/L 3.6-5.0 Serum or plasma chloride measurement (moles/volume) 103 mmol/L 98-107 Carbon dioxide 29 mmol/L 21-32 Serum or plasma anion gap determination (moles/volume) 10 mmol/L 5-14 Serum or plasma urea nitrogen measurement (mass/volume) 21 mg/dL 7-18 Serum or plasma creatinine measurement (mass/volume) 1.01 mg/dL 0.60-1.30 Serum or plasma urea nitrogen/creatinine mass [...] Serum or plasma sodium measurement (moles/volume) 140 mmol/L 135-145 Serum or plasma potassium measurement (moles/volume) 4.1 mmol/L 3.6-5.0 Serum or plasma chloride measurement (moles/volume) 107 mmol/L 98-107 Carbon dioxide 20 mmol/L 21-32 Serum or plasma anion gap determination (moles/volume) 13 mmol/L 5-14 Serum or plasma urea nitrogen measurement (mass/volume) 16 mg/dL 7-18 Serum or plasma creatinine measurement (mass/volume) 0.74 mg/dL 0.60-1.30 Serum or plasma urea nitrogen/creatinine mass ratio 22 NRG Serum or plasma creatinine measurement with calculation of estimated glomerular filtration rate > NRG Serum or plasma glucose measurement (mass/volume) 81 mg/dL 70-105 Serum or plasma calcium measurement (mass/volume) 8.2 mg/dL 8.5-10.1 Automated blood complete blood count (hemogram) panel - 11/18/16 05:35 Blood leukocytes automated count (number/volume) 6.5 10*3/uL 4.3-11.0 Blood erythrocytes automated count (number/volume) 4.43 10*6/uL 4.35-5.85 Venous blood hemoglobin measurement (mass/volume) 13.0 [...] Automated blood platelet mean volume measurement 10.5 [foz_us] 7.4-10.4 Comp. Metabolic Panel (14) - 12/13/16 11:29 Glucose, Serum 90 mg/dL 65-99 BUN 14 mg/dL 8-27 Creatinine, Serum 0.98 mg/dL 0.57-1.00 eGFR If NonAfricn Am 59 mL/min/1.73 >59 eGFR If Africn Am 68 mL/min/1.73 >59 BUN/Creatinine Ratio 14 11-26 Sodium, Serum 143 mmol/L 134-144 Potassium, Serum 4.7 mmol/L 3.5-5.2 Chloride, Serum 99 mmol/L 96-106 Carbon Dioxide, Total 33 mmol/L 18-29 Calcium, Serum 9.5 mg/dL 8.7-10.3 Protein, Total, Serum 7.1 g/dL 6.0-8.5 Albumin, Serum 4.5 g/dL 3.5-4.8 Globulin, Total 2.6 g/dL 1.5-4.5 A/G Ratio 1.7 1.2-2.2 Bilirubin, Total 0.3 mg/dL 0.0-1.2 Alkaline Phosphatase, S 61 IU/L 39-117 AST (SGOT) 17 IU/L 0-40 ALT (SGPT) 15 IU/L 0-32 Automated blood complete blood count (hemogram) panel - 01/05/17 07:55 Blood leukocytes automated count (number/volume) 6.9 10*3/uL 4.3-11.0 Blood erythrocytes automated count (number/volume) 5.19 10*6/uL 4.35-5.85 Venous blood hemoglobin measurement (mass/volume) 15.0 [...] Automated blood platelet mean volume measurement 10.1 [foz_us] 7.4-10.4 Complete urinalysis with reflex to culture - 01/05/17 07:55 Urine color determination YELLOW NRG Urine clarity determination CLEAR NRG Urine pH measurement by test strip 7 5-9 Specific gravity of urine by test strip 1.020 1.016- 1.022 Urine protein assay by test strip, semi-quantitative [...] Serum or plasma sodium measurement (moles/volume) 144 mmol/L 135-145 Serum or plasma potassium measurement (moles/volume) 3.9 mmol/L 3.6-5.0 Serum or plasma chloride measurement (moles/volume) 103 mmol/L 98-107 Carbon dioxide 31 mmol/L 21-32 Serum or plasma anion gap determination (moles/volume) 10 mmol/L 5-14 Serum or plasma urea nitrogen measurement (mass/volume) 19 mg/dL 7-18 Serum or plasma creatinine measurement (mass/volume) 0.85 mg/dL 0.60-1.30 Serum or plasma urea nitrogen/creatinine mass [...] culture - 01/05/17 07:55 Bacterial urine culture [id number] NRG COLONY COUNT 10,000/ML - 100,000/ML NRG FTX;REPORTABLE CURRENT NOMENCLATURE: MYROIDES SPP NR FREE TEXT ENTRY 2 SENSITIVITY REPORTED 01/08 13:48 NR Bacterial susceptibility panel - 01/05/17 07:55 Gentamicin susceptibility test by minimum inhibitory concentration < = NRG Trimethoprim/sulfamethoxazole susceptibility test by minimum inhibitoryconcentration <= NRG Tobramycin susceptibility test by minimum inhibitory concentration < = NRG Cefazolin susceptibility test by minimum inhibitory concentration < = NRG Ceftriaxone susceptibility test by minimum inhibitory concentration <= NRG Piperacillin/tazobactam susceptibility test by minimum inhibitory concentration <= NRG Ciprofloxacin susceptibility test by minimum inhibitory concentration <= NRG Meropenem susceptibility test by minimum inhibitory concentration < = NRG Nitrofurantoin susceptibility test by minimum inhibitory concentration <= NRG Aztreonam susceptibility test by minimum inhibitory concentration < = NRG Bacterial susceptibility panel - 01/05/17 07:55 Gentamicin susceptibility test by minimum inhibitory concentration > = NRG Trimethoprim/sulfamethoxazole susceptibility test by minimum inhibitoryconcentration 40 NRG Tobramycin susceptibility test by minimum inhibitory concentration > = NRG Piperacillin/tazobactam susceptibility test by minimum inhibitory concentration <= NRG Ciprofloxacin susceptibility test by minimum inhibitory concentration <= NRG Meropenem susceptibility test by minimum inhibitory concentration < = NRG Aztreonam susceptibility test by minimum inhibitory concentration 2 NRG Automated blood complete blood count (hemogram) panel - 01/05/17 19:34 Blood leukocytes automated count (number/volume) 9.1 10*3/uL 4.3-11.0 Blood erythrocytes automated count (number/volume) 4.03 10*6/uL 4.35-5.85 Venous blood hemoglobin measurement (mass/volume) 11.7 [...] Automated blood platelet mean volume measurement 10.4 [foz_us] 7.4-10.4 Automated blood complete blood count (hemogram) panel - 01/06/17 03:40 Blood leukocytes automated count (number/volume) 8.4 10*3/uL 4.3-11.0 Blood erythrocytes automated count (number/volume) 3.64 10*6/uL 4.35-5.85 Venous blood hemoglobin measurement (mass/volume) 10.6 [...] Automated blood platelet mean volume measurement 10.2 [foz_us] 7.4-10.4 Whole blood basic metabolic panel - 01/06/17 03:40 Serum or plasma sodium measurement (moles/volume) 142 mmol/L 135-145 Serum or plasma potassium measurement (moles/volume) 4.1 mmol/L 3.6-5.0 Serum or plasma chloride measurement (moles/volume) 113 mmol/L 98-107 Carbon dioxide 19 mmol/L 21-32 Serum or plasma anion gap determination (moles/volume) 10 mmol/L 5-14 Serum or plasma urea nitrogen measurement (mass/volume) 20 mg/dL 7-18 Serum or plasma creatinine measurement (mass/volume) 0.78 mg/dL 0.60-1.30 Serum or plasma urea nitrogen/creatinine mass ratio 26 NRG Serum or plasma creatinine measurement with calculation of estimated glomerular filtration rate > NRG Serum or plasma glucose measurement (mass/volume) 101 mg/dL 70-105 Serum or plasma calcium measurement (mass/volume) 7.4 mg/dL 8.5-10.1 Complete blood count (CBC) with automated white blood cell (WBC) differential - 03/13/17 18:27 Blood leukocytes automated count (number/volume) 6.5 10*3/uL 4.3-11.0 Blood erythrocytes automated count (number/volume) 4.84 10*6/uL 4.35-5.85 Venous blood hemoglobin measurement (mass/volume) 13.3 g/dL 11.5-16.0 Blood hematocrit (volume fraction) 42 % 35-52 Automated erythrocyte mean corpuscular volume 86 [foz_us] 80-99 Automated erythrocyte mean corpuscular hemoglobin (mass per erythrocyte) 28 pg 25-34 Automated erythrocyte mean corpuscular hemoglobin concentration measurement ( mass/volume) 32 g/dL 32-36 Automated erythrocyte distribution width ratio 14.3 % 10.0-14.5 Automated blood platelet count (count/volume) 277 10*3/uL 130-400 Automated blood platelet mean volume measurement 10.6 [foz_us] 7.4-10.4 Automated blood neutrophils/100 leukocytes 55 % 42-75 Automated blood lymphocytes/100 leukocytes 33 % 12-44 Blood monocytes/100 leukocytes 9 % 0-12 Automated blood eosinophils/100 leukocytes 2 % 0-10 Automated blood basophils/100 leukocytes 1 % 0-10 Blood neutrophils automated count (number/volume) 3.6 10*3 1.8-7.8 Blood lymphocytes automated count (number/volume) 2.2 10*3 1.0-4.0 Blood monocytes automated count (number/volume) 0.6 10*3 0.0-1.0 Automated eosinophil count 0.2 10*3/uL 0.0-0.3 Automated blood basophil count (count/volume) 0.1 10*3/uL 0.0-0.1 Comprehensive metabolic panel - 03/13/17 18:27 Serum or plasma sodium measurement (moles/volume) 141 mmol/L 135-145 Serum or plasma potassium measurement (moles/volume) 3.6 mmol/L 3.6-5.0 Serum or plasma chloride measurement (moles/volume) 101 mmol/L 98-107 Carbon dioxide 30 mmol/L 21-32 Serum or plasma anion gap determination (moles/volume) 10 mmol/L 5-14 Serum or plasma urea nitrogen measurement (mass/volume) 14 mg/dL 7-18 Serum or plasma creatinine measurement (mass/volume) 0.81 mg/dL 0.60-1.30 Serum or plasma urea nitrogen/creatinine mass ratio 17 0 -20 Serum or plasma creatinine measurement with calculation of estimated glomerular filtration rate > NRG Serum or plasma glucose measurement (mass/volume) 80 mg/dL 70-105 Serum or plasma calcium measurement (mass/volume) 10.3 mg/dL 8.5-10.1 Serum or plasma total bilirubin measurement (mass/volume) 0.3 mg/dL 0.1-1.0 Serum or plasma alkaline phosphatase measurement (enzymatic activity/volume) 58 U/L 40-136 Serum or plasma aspartate aminotransferase measurement (enzymatic activity/ volume) 30 U/L 5-34 Serum or plasma alanine aminotransferase measurement (enzymatic activity/volume ) 19 U/L 0-55 Serum or plasma protein measurement (mass/volume) 7.8 g/dL 6.4-8.2 Serum or plasma albumin measurement (mass/volume) 4.3 g/dL 3.2-4.5 Capillary blood glucose measurement by glucometer (mass/volume) - 03/13/17 20: 59 Capillary blood glucose measurement by glucometer (mass/volume) 128 mg/dL 70-110 Capillary blood glucose measurement by glucometer (mass/volume) - 03/14/17 05: 42 Capillary blood glucose measurement by glucometer (mass/volume) 98 mg/dL 70-110 Serum or plasma C reactive protein measurement (mass/volume) - 03/14/17 07:15 Serum or plasma C reactive protein measurement (mass/volume) 0.45 mg /dL 0.00-0.50 Erythrocyte sedimentation rate by westergren method - 03/14/17 07:15 Erythrocyte sedimentation rate by westergren method 12 mm 0-30 Capillary blood glucose measurement by glucometer (mass/volume) - 03/14/17 10: 56 Capillary blood glucose measurement by glucometer (mass/volume) 86 mg/dL 70-110 Capillary blood glucose measurement by glucometer (mass/volume) - 03/14/17 16: 05 Capillary blood glucose measurement by glucometer (mass/volume) 91 mg/dL 70-110 CBC w/MANUAL DIFF - 12/08/17 08:36 WHITE BLOOD CELL COUNT 7.4 Thousand/uL 3.8-10.8 RED BLOOD CELL COUNT 5.16 Million/uL 3.80-5.10 HEMOGLOBIN 14.6 g/dL 11.7-15.5 HEMATOCRIT 45.7 % 35.0-45.0 MCV 88.6 fL 80.0-100.0 MCH 28.3 pg 27.0-33.0 MCHC 31.9 g/dL 32.0-36.0 RDW 15.1 % 11.0-15.0 PLATELET COUNT 257 Thousand/uL 140-400 MPV 10.1 fL 7.5-12.5 ABSOLUTE NEUTROPHILS 4440 cells/uL 8376-2425 ABSOLUTE LYMPHOCYTES 2146 cells/uL 850-3900 ABSOLUTE MONOCYTES 592 cells/uL 200-950 ABSOLUTE EOSINOPHILS 148 cells/uL 15-500 ABSOLUTE BASOPHILS 0 cells/uL 0-200 NEUTROPHILS 60 % NRG LYMPHOCYTES 29 % NRG MONOCYTES 8 % NRG EOSINOPHILS 2 % NRG BASOPHILS 0 % NRG ABSOLUTE BAND NEUTROPHILS 74 cells/uL 0-750 BAND NEUTROPHILS 1 % NRG COMMENT(S) NRG Encounters ACCT No. Visit Date/Time Discharge Status Pt. Type Provider Facility Loc./Unit Complaint [id number] 2014 09:53:00 2014 23:59:59 CLS Outpatient MANI SOARES APRN [id number] 05/26/2014 10:00:00 05/26/2014 23:59:59 CLS Outpatient FATEMEH SAMANIEGO APRN [id number] 03/27/2014 10:41:00 03/27/2014 23:59:59 CLS Outpatient RODGER MANI CADET [id number] 03/27/2014 10:41:00 03/27/2014 23:59:59 CLS Outpatient MANI SOARES APRN [id number] 11/22/2013 09:49:00 11/22/2013 23:59:59 CLS Outpatient RUSSELL BRENNER MD [id number] 05/28/2013 09:16:00 05/28/2013 23:59:59 CLS Outpatient RUSSELL BRENNER MD [id number] 11/12/2012 08:11:00 11/12/2012 23:59:59 CLS Outpatient RUSSELL BRENNER MD [id number] 10/30/2012 13:56:00 10/30/2012 23:59:59 CLS Outpatient [id number] 04/25/2013 09:33:00 Document Registration [id number] 12/25/2012 09:49:00 Document Registration [id number] 12/14/2016 08:40:00 Document Registration [id number] 06/26/2015 14:34:28 ACT Document Registration [id number] 12/08/2017 08:00:00 12/08/2017 23:59:59 CLS Outpatient VANESSAL MANI CADET [facility] [id number] 12/08/2017 08:00:00 Document Registration [id number] 08/13/2016 07:05:00 Document Registration [id number] 12/22/2017 05:38:00 12/22/2017 12:00:00 DIS Outpatient CJ PEGUERO MD [facility] PREOP COLONOSCOPY [id number] 07/24/2017 13:31:00 07/24/2017 23:59:59 CLS Outpatient PROMISE VALENTIN L DOLL SURGEON [facility] CARD HTN I10 [id number] 06/26/2017 13:13:00 06/26/2017 23:59:59 CLS Outpatient MADLTHOMASA L DOLL SURGEON [facility] RAD R92.8 [id number] 03/23/2017 13:28:00 03/23/2017 23:59:59 CLS Outpatient MADL, MANI L DOLL SURGEON [facility] RAD Z72.0 TOBACCO USE [id number] 03/13/2017 17:07:00 03/14/2017 10:24:00 DIS Inpatient JEAN SINHA DO [facility] 4TH L KNEE EFFUSION, POSSIBLE INFECTION [id number] 02/24/2017 12:00:00 02/24/2017 23:59:59 CLS Preadmit CJ PEGUERO MD [facility] ENDO HISTORY COLON POLYPS [id number] 02/21/2017 13:00:00 02/21/2017 13:00:00 CAN Preadmit CJ PEGUERO MD [facility] PREOP HISTORY COLON POLYPS [id number] 02/13/2017 21:43:00 02/13/2017 22:49:00 DIS Emergency STAS MASON DO [facility] ER FALL/KNEE PAIN [id number] 01/05/2017 07:19:00 01/06/2017 11:05:00 DIS Outpatient More FERNANDEZ MD [facility] CATH PVD,HTN [id number] 11/17/2016 08:42:00 11/18/2016 11:25:00 DIS Outpatient More FERNANDEZ MD [facility] CATH SEVERE PAD,CLAUDICATION, HTN,HLP,SOB [id number] 11/08/2016 06:55:00 11/08/2016 13:28:00 DIS Outpatient KAYLIN PORTER MD, FACC, FACP CCDS [facility] CATH BILAT LEG DISCOMFORT,PVD,LEG CLAUDICATION [id number] 09/27/2016 11:48:00 09/27/2016 23:59:59 CLS Outpatient KAYLIN PORTER MD, FACC, FACP CCDS [facility] RAD PAD,CAROTID ARTERIAL DISEASE,HTN,HLP [id number] 09/26/2016 13:10:00 09/26/2016 23:59:59 CLS Outpatient MANI SOARES DOLL SURGEON [facility] RAD ABNORMALITY [id number] 08/24/2016 09:15:00 08/24/2016 23:59:59 CLS Outpatient MANI SOARES DOLL SURGEON [facility] RAD SCREENING [id number] 11/05/2015 08:57:00 11/05/2015 23:59:59 CLS Outpatient MADLMANI DOLL SURGEON [facility] RAD OSTEOPOROSIS [id number] 06/26/2015 14:33:00 06/26/2015 23:59:59 CLS Outpatient MADLMANI DOLL SURGEON [facility] RAD SCREENING [id number] 05/08/2015 08:32:00 05/08/2015 23:59:59 CLS Outpatient BAIMADANIELLEPROMISE L DOLL SURGEON [facility] LAB HYPERLIPIDEMIA [id number] 10/28/2014 08:08:00 10/28/2014 23:59:59 CLS Outpatient BAIMA PROMISE L DOLL SURGEON [facility] CARD DYSPNEA [id number] 05/30/2014 10:26:00 05/30/2014 23:59:59 CLS Outpatient ADENFATEMEH APRN [facility] RAD ROUTINE [id number] 03/05/2014 09:08:00 03/05/2014 23:59:59 CLS Outpatient BARBIE PROMISE L DOLL SURGEON [facility] LAB HYPERLIPIDEMIA, FASTING LIPID PANEL,CMP [id number] 01/02/2014 06:49:00 01/02/2014 11:40:00 DIS Outpatient MAHSA JULES MD [facility] SDC HISTORY OF POLYPS [id number] 01/01/2014 07:35:00 01/01/2014 23:59:59 CLS Outpatient MAHSA JULES MD [facility] PREOP HISTORY OF POLYPS [id number] 08/21/2013 09:24:00 08/21/2013 23:59:59 CLS Outpatient BAIMA PROMISE L DOLL SURGEON [facility] LAB HLP [id number] 05/10/2013 09:06:00 05/10/2013 23:59:59 CLS Outpatient RUSSELL BRENNER MD [facility] RAD SCREENING, OSTEOPOROSIS [id number] 12/29/2017 10:52:00 ACT Outpatient CJ PEGUERO MD [facility] ENDO SCREENING/HX POLYPS. [id number] 06/26/2015 14:34:00 Document Registration [id number] 06/26/2015 14:34:00 Document Registration [id number] 06/26/2015 14:34:00 Document Registration [id number] 12/13/2012 07:21:00 Document Registration [id number] 12/12/2012 08:11:00 Document Registration [id number] 05/29/2012 06:13:00 Document Registration [id number] 05/28/2012 07:40:00 Document Registration [id number] 05/16/2012 08:52:00 Document Registration [id number] 03/22/2012 05:34:00 Document Registration [id number] 03/14/2012 07:03:00 Document Registration [id number] 03/09/2012 10:00:00 Document Registration [id number] 03/08/2012 14:54:00 Document Registration [id number] 03/08/2012 07:38:00 Document Registration [id number] 03/02/2012 09:18:00 Document Registration
[2018-01-01 17:41] VITALS: BP 144/43
== END 2017-12-29 16:40 | disposition home or self-care (01) ==
LOC: ENDO 10:52
PROVIDERS: ATTEND Surgery
DX: Z12.11 Encounter for screening for malignant neoplasm of colon (principal); K57.30 Diverticulosis of large intestine without perforation or abscess without bleeding; K64.1 Second degree hemorrhoids; Z87.19 Personal history of other diseases of the digestive system; I11.0 Hypertensive heart disease with heart failure; I50.9 Heart failure, unspecified; E78.5 Hyperlipidemia, unspecified; I25.10 Atherosclerotic heart disease of native coronary artery without angina pectoris; I73.9 Peripheral vascular disease, unspecified; K59.00 Constipation, unspecified; M81.0 Age-related osteoporosis without current pathological fracture; Z79.82 Long term (current) use of aspirin; Z79.899 Other long term (current) drug therapy; Z95.820 Peripheral vascular angioplasty status with implants and grafts

== ENCOUNTER 2018-01-23 07:23 | Day surgery (SDC) | payer MEDICARE, MEDICAID ==
[2018-01-23] VITALS (12 sets, daily range): BP systolic 129–186; BP diastolic 47–71
[~2018-01-23] VITALS: Ht 157.5 cm; Wt 63.5 kg
[2018-01-23] MEDS ORDERED: NS IV 1000 ML 3,000 ML ONE (07:30)
[2018-01-23] MEDS ORDERED: LIDOCAINE 1% INJ 20 ML 20 ML VIAL ONE ×2 (07:32→10:55)
[2018-01-23] MEDS ORDERED: HEParin 1000 UNIT/ML (10ML VIAL) FOR BOLUS ONE (07:32)
[2018-01-23] MEDS ORDERED: NS IV 1000 ML 1,000 ML IV SCH ×2 (07:45→12:07)
[2018-01-23 08:20] LABS: HEMOGLOBIN 14.2 G/DL (11.5-16.0); MEAN PLATELET VOLUME 10.1 FL (7.4-10.4); RED BLOOD COUNT 4.96 10^6/uL (4.35-5.85)
[2018-01-23 08:41] LABS: ALANINE AMINOTRANSFERASE 16 U/L (0-55); ALBUMIN 4.5 GM/DL (3.2-4.5); ALKALINE PHOSPHATASE 50 U/L (40-136); BILIRUBIN,TOTAL 0.3 MG/DL (0.1-1.0); BUN/CREATININE RATIO 21; CALCIUM 9.8 MG/DL (8.5-10.1); CARBON DIOXIDE 32 MMOL/L (21-32); CHLORIDE 105 MMOL/L (98-107); CHOLESTEROL 167 MG/DL (< 200); GFR ESTIMATED > 60; GLUCOSE 94 MG/DL (70-105); HDL CHOLESTEROL 66 MG/DL (40-60); POTASSIUM 3.9 MMOL/L (3.6-5.0); SODIUM 146 MMOL/L (135-145); TOTAL PROTEIN 7.3 GM/DL (6.4-8.2); TRIGLYCERIDES 74 MG/DL (<150); VLDL CHOLESTEROL 15 MG/DL (5-40)
[2018-01-23 08:46] LABS: INR 0.9 (0.8-1.4); PROTHROMBIN TIME PATIENT 12.1 SEC (12.2-14.7)
[2018-01-23] MEDS ORDERED: fentaNYL INJECTION 100 MCG/2 ML AMP ONE (09:54)
[2018-01-23] MEDS ORDERED: MIDAZOLAM 5 MG/5 ML (VERSED) VIAL ONE (09:54)
[2018-01-23] MEDS ORDERED: diphenhydrAMINE 50 MG/ML INJ (BENADRYL) ONE (09:54)
[2018-01-23] MEDS ORDERED: PSYL174P2 PO (10:22)
[2018-01-23] MEDS ORDERED: HYDR28OI2 TP (10:24)
--- NOTE | 2018-01-23 10:25 | Cardiac Procedure Note-CS/ASA ---
Pre-Procedure Note Pre-Op Procedure Note H&P Reviewed The H&P was reviewed, patient examined and no changes noted. Date H&P Reviewed: January 23, 2018 Time H&P Reviewed: 10:25 Conscious Sedation Pre-Proced Time Reviewed: 10:25 ASA Class: 3 Airway Mallampati Classification: ([place] appropriate class) I. II. III, IV Lungs Heart ASA score ASA 1: a normal healthy patient ASA 2: a patient with a mild systemic disease (mid diabetes, controlled hypertension, obesity ASA 3: a patient with a severe systemic disease that limits activity (angina , COPD, prior Myocardial infarction) ASA 4: a patient with an incapacitating disease that is a constant threat to life (CHF, renal failure) ASA 5: a moribund patient not expected to survive 24 hrs. (ruptured aneurysm) ASA 6: a declared brain patient whose organs are being harvested. For emergent operations, add the letter E after the classification Grade 2 Sedation Plan: Analgesia, Amnesia, Plan communicated to team members, Discussed options with patient/fam, Discussed risks with patient/fam Note The patient is an appropriate candidate to undergo the planned procedure, sedation, and anesthesia. The patient immediately re-assessed prior to indication. KAYLIN PORTER MD FACP FAC CCDS January 23, 2018 10:25
[2018-01-23] MEDS ORDERED: ATROPINE INJECTION 1 MG/10 ML SYR (ABBOTT) ONE (11:53)
[2018-01-23] MEDS ORDERED: CLOP75TA69 PO (12:10)
--- NOTE | 2018-01-23 12:11 | Discharge Inst-Post CATH ---
Discharge Inst-CATH Post Cardiac Cath D/C Inst Follow Up/Plan F/u with Dr Gerardo in 1-2 weeks CARDIAC CATH DISCHARGE INSTRUCTIONS *Hold Metformin for 48 hours post heart cath. ACTIVITY * Go Home directly and rest. * Limit activity of the leg (or wrist if it was used) for 7 days including aerobics, swimming, jogging, bicycling, etc. * Restrict stair-climbing for 7 days if possible, if not, climb up with your non -cath leg, then bring together on the same step. * Avoid lifting, pushing, pulling or excessive movement of the affected extremity for 7 days. * Customary sexual activity may be resumed after 2 days-use caution not to use a position that strains or causes pain to the affected extremity. * No driving for 24 hours. * NO SMOKING. * Avoid straining for bowel movements for 7 days. * Gentle walking on level ground is allowed. * Returning to work will depend on the type of procedure and the results. Your doctor will discuss this with you. CALL YOUR DOCTOR FOR ANY OF THE FOLLOWING: *If bleeding from the puncture site occurs- Apply gentle pressure to site with clean cloth and call your doctor or EMS. * If a knot or lump forms under the skin, increases in size, or causes pain. * If bruising appears to be worsening or moving further down your leg instead of disappearing. * Temperature above 101 F. CARE OF YOUR GROIN INCISION; * Bruising or purple discoloration of the skin near the puncture site is common. * You may shower only, no bathtub bathing for 5 days. Be careful to avoid slipping as your leg may feel stiff. * If a closure device was used on your femoral artery, please see the attached guide regarding care of the device and your leg. * REMOVE the dressing from your groin the next day after your procedure in the shower. CARE OF YOUR WRIST INCISION; * Bruising or purple discoloration of the skin near the puncture site is common. * You may shower. * DO NOT submerge wrist. * Remove dressing in 24 hours. KAYLIN GERARDO MD FACP [facility] CCDS January 23, 2018 12:11
--- NOTE | 2018-01-23 12:11 | Discharge Inst-Cardiology ---
Discharge Inst-Cardiac Discharge Medications New Medications: Clopidogrel Bisulfate (Plavix) 75 Mg Tablet 75 MG PO DAILY, #30 TAB 5 Refills Continued Medications: Albuterol Sulfate (Proair Hfa) 1 Puff Puff 1-2 PUFF IH Q4H PRN for SHORTNESS OF BREATH, INHALER 1 PUFF = 90 MCG Alendronate Sodium (Alendronate Sodium) 70 Mg Tablet 81 MG PO [place] Aspirin (Aspirin) 81 Mg Tab.chew 81 MG PO DAILY, TAB Budesonide/Formoterol Fumarate (Symbicort 160-4.5 Mcg Inhaler) 10.2 Gm Hfa.aer.ad 2 PUFF IH BID, INHALER Calcium Carbonate/Vitamin D3 (Calcium 600 + Vit D 800 Tab) 1 Each Tablet 1 TAB PO DAILY, TAB Clobetasol Propionate (Clobetasol Propionate) 50 Ml Solution 2 DROPS RIGHT EAR BID PRN for DRY SKIN Diphenhydramine HCl (Diphenhydramine HCl) 25 Mg Capsule 25 MG PO BID PRN for ALLERGIES, CAP Furosemide (Furosemide) 40 Mg Tablet 40 MG PO DAILY Hydrocortisone Acetate (Hydrocortisone) 28 Gm Oint...g. TP UD PRN for SORES, TUBE Lisinopril (Lisinopril) 10 Mg Tablet 10 MG PO DAILY, TAB Metoprolol Tartrate (Metoprolol Tartrate) 25 Mg Tablet 25 MG PO BID, TAB Mirabegron (Myrbetriq) 25 Mg Tab.er.24h 25 MG PO DAILY, TAB Multivit with Calcium,Iron,Min (Women's Daily Formula) 1 Each Tablet 1 TAB PO DAILY, TAB [place] 3 Polyunsat Fatty Acids (Fish Oil 1,000 mg Capsule) 1,000 Mg Cap 1000 MG PO DAILY, CAP Polyvinyl Alcohol/Povidone (Artificial Tears Drops) 15 Ml Drops 1 DROP OU QID PRN for DRY EYES, DROPS Potassium Chloride (Potassium Chloride) 10 Meq Tab.er.prt 10 MEQ PO DAILY Pravastatin Sodium (Pravastatin Sodium) 20 Mg Tablet 20 MG PO HS Psyllium Husk/Aspartame (Metamucil Powder) 174 Gm Powder 2 TBS PO DAILY, EA Verapamil HCl (Verapamil HCl) 120 Mg Tablet 120 MG PO 1700, TAB Vit C/E/Zn/Coppr/Lutein/Zeaxan (Preservision Areds 2 Softgel) 1 Each Capsule 1 CAP PO BID, CAP KAYLIN PORTER MD FACP FACC CCDS January 23, 2018 12:11
[2018-01-23] MEDS ORDERED: PATIENT MAY USE OWN MEDS, ALL PO SCH (12:15)
--- NOTE | 2018-01-23 18:57 | CARDIAC CATHETERIZATION ---
DATE OF SERVICE: 01/23/2018 PERIPHERAL ANGIOGRAPHY REPORT The patient is a 72-year-old lady, who has peripheral arterial disease and has had multiple percutaneous interventions to the leg arteries. She has had recurrent leg claudication and peripheral angiography was carried out today after having obtained an informed consent for peripheral angiography and for possible ad hoc peripheral percutaneous intervention. DESCRIPTION OF PROCEDURE: She was brought to the cardiac catheterization laboratory in a fasting state. The right groin was prepared and draped in the usual sterile fashion. Lidocaine 1% with local anesthesia. Modified Seldinger technique was used to advance a 5-Sammarinese sheath into the right femoral artery. A 5-Sammarinese pigtail catheter was used to carry out abdominal aortic angiography with the catheter placed at the level of L1. The catheter was then pulled back down to just above the aortoiliac bifurcation and bilateral leg artery angiography was performed with runoff down to the level of the ankles. Subsequently, we attempted a left femoral artery approach to see if we could carry out percutaneous intervention to in-stent restenosis within the left common iliac artery, but we were not able to get adequate access despite multiple attempts. Manual pressure was used to achieve hemostasis on both sides following equipment removal. The patient tolerated the procedure well. ABDOMINAL AORTIC ANGIOGRAPHY: Abdominal aortic angiography indicated atherosclerosis of the abdominal aorta. The mesenteric and renal vessels are patent and do not exhibit significant stenosis, to the extent visualized. There is considerable calcification of the abdominal aorta in the aortoiliac junction. There is some ectasia of the infrarenal abdominal aorta without any significant aneurysm formation. BILATERAL LEG ARTERY ANGIOGRAPHY: There are patent stents in both common iliac arteries. These are known to be 7.0 x 37 mm stent placed several years ago. There is a nearly totally occluded stent within the right external iliac artery that was placed. There is known to be 7 x 80 mm and was placed in early 2017. Due to a near total occlusion within the stent, the right common iliac artery is not well visualized. The right superficial and deep femoral arteries appear intact. The right superficial femoral artery does not exhibit significant stenosis and continues as the right popliteal, which then trifurcates with a 3-vessel runoff. The common iliac stent on the left side appears to have 80% distal stenosis. The left common femoral artery has 60%-70% stenosis. There is a patent stent in the left superficial femoral artery, which begins in the distal portion of the left common femoral and extends through the most portion of the left superficial femoral. This does not exhibit significant stent restenosis, but the superficial femoral artery distal to the stent exhibit 70%-80% stenoses. It continues as the popliteal artery on the left side and then trifurcates with a 3-vessel runoff. CONCLUSIONS: 1. Patent stent in the right common iliac artery known to be 7.0 x 37 mm. 2. Near total occlusion of a 7.0 x 80 mm stent in the right external iliac artery. 3. 80% in-stent restenosis within the distal portion of a 7.0 x 37 mm stent in the left common iliac artery. 4. 60%-70% stenosis within the left common femoral artery. 5. Patent stent in the distal common femoral artery, which extends down into the right superficial femoral artery (the left deep femoral artery is jailed by the stent). These are reported to be 5.5 x 150 and 5 x 150 overlapping stents These stent are patent and does not exhibit significant disease, but there is 70%-80% stenosis in the distal left superficial femoral artery distal to the stent. Job ID: [id number] DocumentID: [id number] Dictated Date: 01/23/2018 12:24:36 Floorwalker Date: 01/23/2018 18:56:58 Dictated By: KAYLIN PORTER MD, MA, FACP, FACC, MTDD
== END 2018-01-23 16:35 | disposition home or self-care (01) ==
LOC: CATH 07:23 → SURG 12:22 → CATH 16:35
PROVIDERS: ATTEND Internal Medicine Cardiovascular Disease
DX: I70.213 Atherosclerosis of native arteries of extremities with intermittent claudication, bilateral legs (principal); T82.856A Stenosis of peripheral vascular stent, initial encounter; E78.5 Hyperlipidemia, unspecified; I10 Essential (primary) hypertension; F17.210 Nicotine dependence, cigarettes, uncomplicated; Z79.82 Long term (current) use of aspirin; Z79.899 Other long term (current) drug therapy
CPT/HCPCS: 36415; 75630; 80053; 80061; 85027; 85610; 85730; 87081

== ENCOUNTER 2018-02-13 07:32 | Day surgery (SDC) | payer MEDICARE, MEDICAID ==
[2018-02-13] VITALS (9 sets, daily range): BP systolic 100–174; BP diastolic 44–130
[~2018-02-13] VITALS: Ht 154.9 cm; Wt 64.6 kg
[~2018-02-13 07:32] MED LIST changes: +CLOP75TA69 PO; +HYDR28OI2 TP; +PSYL174P2 PO
[2018-02-13] MEDS ORDERED: HEParin (CATH LAB) 2,000 ML IV ONE (07:42)
[2018-02-13] MEDS ORDERED: NS IV 1000 ML 1,000 ML ONE (07:42)
[2018-02-13] MEDS ORDERED: LIDOCAINE 1% INJ 20 ML 20 ML VIAL ONE (07:42)
[2018-02-13] MEDS ORDERED: NS IV 1000 ML 1,000 ML IV SCH (08:15)
[2018-02-13 08:27] LABS: HEMOGLOBIN 13.9 G/DL (11.5-16.0); MEAN PLATELET VOLUME 10.5 FL (7.4-10.4); RED BLOOD COUNT 4.7 10^6/uL (4.35-5.85); RED CELL DISTRIBUTION WIDTH 15.4 % (10.0-14.5); WHITE BLOOD COUNT 7.8 10^3/uL (4.3-11.0)
[2018-02-13 08:43] LABS: INR 0.9 (0.8-1.4); PROTHROMBIN TIME PATIENT 12.3 SEC (12.2-14.7)
[2018-02-13] MEDS ORDERED: CLOP75TA69 PO (08:46)
[2018-02-13 08:52] LABS: ALANINE AMINOTRANSFERASE 19 U/L (0-55); ALBUMIN 4.2 GM/DL (3.2-4.5); ALKALINE PHOSPHATASE 46 U/L (40-136); BILIRUBIN,TOTAL 0.4 MG/DL (0.1-1.0); BUN/CREATININE RATIO 22; CALCIUM 9.2 MG/DL (8.5-10.1); CARBON DIOXIDE 24 MMOL/L (21-32); CHLORIDE 109 MMOL/L (98-107); CHOLESTEROL 153 MG/DL (< 200); CREATININE SERUM 0.82 MG/DL (0.60-1.30); GFR ESTIMATED > 60; GLUCOSE 86 MG/DL (70-105); HDL CHOLESTEROL 55 MG/DL (40-60); POTASSIUM 4.6 MMOL/L (3.6-5.0); SODIUM 143 MMOL/L (135-145); TOTAL PROTEIN 7.3 GM/DL (6.4-8.2); TRIGLYCERIDES 124 MG/DL (<150); VLDL CHOLESTEROL 25 MG/DL (5-40)
[2018-02-13] MEDS ORDERED: fentaNYL INJECTION 100 MCG/2 ML AMP ONE (09:02)
[2018-02-13] MEDS ORDERED: diphenhydrAMINE 50 MG/ML INJ (BENADRYL) ONE (09:02)
[2018-02-13] MEDS ORDERED: MIDAZOLAM 5 MG/5 ML (VERSED) VIAL ONE (09:02)
[2018-02-13] MEDS ORDERED: NITRO DRIP 25000 MCG/D5W 250 ML IV ONE (09:03)
[2018-02-13] MEDS ORDERED: HEParin 1000 UNIT/ML (10ML VIAL) FOR BOLUS ONE (09:03)
--- NOTE | 2018-02-13 09:32 | Cardiac Procedure Note-CS/ASA ---
Pre-Procedure Note Pre-Op Procedure Note H&P Reviewed The H&P was reviewed, patient examined and no changes noted. Date H&P Reviewed: February 13, 2018 Time H&P Reviewed: 09:32 Conscious Sedation Pre-Proced Time Reviewed: 09:32 ASA Class: 3 Airway Mallampati Classification: ([place] appropriate class) I. II. III, IV Lungs Heart ASA score ASA 1: a normal healthy patient ASA 2: a patient with a mild systemic disease (mid diabetes, controlled hypertension, obesity ASA 3: a patient with a severe systemic disease that limits activity (angina , COPD, prior Myocardial infarction) ASA 4: a patient with an incapacitating disease that is a constant threat to life (CHF, renal failure) ASA 5: a moribund patient not expected to survive 24 hrs. (ruptured aneurysm) ASA 6: a declared brain patient whose organs are being harvested. For emergent operations, add the letter E after the classification Grade 2 Sedation Plan: Analgesia, Amnesia, Plan communicated to team members, Discussed options with patient/fam, Discussed risks with patient/fam Note The patient is an appropriate candidate to undergo the planned procedure, sedation, and anesthesia. The patient immediately re-assessed prior to indication. KAYLIN PORTER MD FACP FACC CCDS February 13, 2018 09:32
[2018-02-13] MEDS ORDERED: CLOPIDOGREL 300 MG (PLAVIX) TABLET PO ONE (11:12)
[2018-02-13] MEDS ORDERED: ASPIRIN 81 MG CHEW (CHILDREN'S ASA) ONE (11:13)
[2018-02-13] MEDS ORDERED: CLOBETASOL PROPIONATE RIGHT EAR PRN (11:45)
[2018-02-13] MEDS ORDERED: PATIENT MAY USE OWN MEDS, ALL PO SCH (11:45)
[2018-02-13] MEDS ORDERED: RT-ALBUTEROL SULF 2.5 MG/3 ML PRE-MIX VIAL IH PRN (11:45)
[2018-02-13] MEDS ORDERED: ACETAMINOPHEN 325 MG TABLET/CAPLET (TYLENOL) PO PRN (11:45)
[2018-02-13] MEDS ORDERED: NON-FORMULARY MEDICATION 1 EA EA (Diphenhydramine HCl 25 MG) PO PRN (11:45)
[2018-02-13] MEDS ORDERED: diphenhydrAMINE 25 MG TAB (BENADRYL) PO PRN (13:30)
--- NOTE | 2018-02-13 13:51 | OPERATIVE REPORT ---
DATE OF SERVICE: 02/13/2018 The patient is a 72-year-old lady who is known to have peripheral arterial disease and has bilateral leg claudication. Recent angiography indicated near total occlusion of the right external iliac and common femoral arteries. There was also 80% in-stent restenosis in the distal portion of the left common iliac. Today, she comes in for peripheral intervention to the arterial circulation of the right leg. PROCEDURE: She was brought to the cardiac catheterization laboratory in a fasting state. She was positioned in the prone position. The right popliteal fossa was prepared and draped in the usual sterile fashion. Ultrasound guidance was used to localize the popliteal artery and access was gained into the right popliteal vein and the right popliteal artery, each with a 6-Hungarian sheath under ultrasound guidance. The arterial sheath was used to carry out intervention. We were able to advance a 0.035 inch STORQ wire through the occlusions in the common femoral and iliac arteries into the aorta. Angiography indicated complete occlusion of the iliac and common femoral arteries on the right side. Balloon angioplasty was subsequently carried out with a 7.0 x 100 mm balloon. Multiple balloon inflations were carried out within the stented areas of the common and external iliac arteries on the right side. Subsequent angiography indicated a small to moderate sized dissection between the stents (in the unstented area of the right common iliac artery). For this, we used an Omnilink 7.0 x 39 mm stent, which was deployed at 12 atmospheres and it slightly overlaps both the proximal and the distal stents which are also known to be 7 mm stents that have previously been placed. Subsequent angiography indicated dissection in the distal right external iliac artery beyond the distal edge of a previously placed stent, extending into the proximal portion of the right common femoral. To this, we carried out stenting with Absolute Pro 6.0 x 40 mm stent, which slightly overlaps the previously placed stent in the distal right external iliac artery. The site of the overlap was ballooned with a 7.0 mm balloon. Subsequent angiography revealed no significant residual stenosis in the iliac or the common femoral system on the left side and flow into the superficial femoral and the deep femoral artery is brisk and normal. Prior to carrying out stenting within the distal external iliac and the proximal right common femoral, we did carry out balloon angioplasty of these arteries, extending into the right superficial femoral artery, with a 4.0 x 100 mm balloon. At the end of the procedure, Mynx was used to achieve arterial hemostasis and manual pressure was used to achieve venous hemostasis following sheath removal. She tolerated the procedure well. ABDOMINAL AORTIC ANGIOGRAPHY: At the beginning of the procedure, we carried out abdominal aortic angiography that indicates a patent left common iliac artery stent with considerable stenosis in the distal part of the stent. On the right side, there appears to be a patent stent in the proximal portion of the right common iliac, but there is approximately 70% to 80% stenosis at the ostium of this common iliac. Following balloon angioplasty at the site, the stenosis was reduced to less than 50%. Balloon angioplasty was carried out at this site with a 7.0 x 100 mm balloon. ANGIOGRAPHY OF THE ARTERIAL CIRCULATION OF THE RIGHT LOWER LIMB: There was 70% to 80% ostial stenosis of the right common iliac, which was reduced to less than 50% following balloon angioplasty. There was complete occlusion of the right external iliac and the right common femoral. These stenoses were reduced to no significant residual following balloon angioplasty within the common and external iliac with 7 mm balloon, placement of a 7.0 x 39 mm stent that overlaps previously placed stents in the common iliac and external iliac (Omnilink 7.0 x 39 mm stent) and placement of a self-expanding 6.0 x 40 mm stent in the distal external iliac and the proximal right common femoral to which ballooning was carried out with a 7 mm diameter balloon at the site of the stents that overlap with a previously placed 7 mm stent. Following these interventions, normal flow was seen down the remainder of the right common iliac and into the right superficial and deep femoral arteries with brisk flow. Angiography was performed down to the level of the right popliteal. CONCLUSIONS: 1. Successful balloon angioplasty and stenting of the right iliac and common femoral arterial system. Following placement of today's stents, the patient has the following stents in the right common iliac, right external iliac, and the proximal portion of the right common femoral, from top to bottom (overlapping): Absolute Pro 7.0 x 80, Omnilink 7.0 x 39, Absolute Pro 7.0 x 80, Absolute Pro 6.0 x 40 (the overlap of 7.0 and 6.0 stents ballooned with a 7.0 balloon). Flow throughout the iliac, common femoral, superficial femoral and deep femoral arteries is brisk and normal. 2. On the left side, there is a patent stent in the common iliac with 80% stent restenosis in the distal portion of this stent. Job ID: [id number] DocumentID: [id number] Dictated Date: 02/13/2018 11:17:08 Glass Curvature Gauger Date: 02/13/2018 13:50:49 Dictated By: KAYLIN PORTER MD, MA, FACP, FACC, MTDD
[2018-02-13] MEDS: NS IV 1000 ML 1,000 ML IV SCH ×2 (14:44→19:58)
--- NOTE | 2018-02-13 15:40 | CARDIAC CATHETERIZATION ---
DATE OF SERVICE: 02/13/18 PERIPHERAL ANGIOGRAPHY AND INTERVENTION REPORT This report has been previously dictated. Please refer to that report of the same date Job ID: [id number] DocumentID: [id number] Dictated Date: 02/13/2018 11:28:48 Reiki Practitioner Date: 02/13/2018 14:50:53 Dictated By: KAYLIN PORTER MD, MA, FACP, FACC, MTDD
[2018-02-13] MEDS ORDERED: VERAPAMIL SR 240 MG (CALAN SR) TAB PO SCH (18:00)
[2018-02-13] MEDS ORDERED: NON-FORMULARY MEDICATION 1 EA EA (Verapamil HCl 120 MG) PO SCH (18:00)
[2018-02-13] MEDS: PRESERVISION AREDS SOFTGEL (BAUSH & LOMB) PO SCH (20:53)
[2018-02-13] MEDS ORDERED: NON-FORMULARY MEDICATION 1 EA EA (Budesonide/Formoterol Fumarate (Symbicort 160-4.5 Mcg In IH SCH (21:00)
[2018-02-13] MEDS ORDERED: NON-FORMULARY MEDICATION 1 EA EA (Pravastatin Sodium 20 MG) PO SCH (21:00)
[2018-02-13] MEDS ORDERED: meTOprolol TARTRATE 25 MG (LOPRESSOR) TABLET PO SCH (21:00)
[2018-02-13] MEDS ORDERED: ATORVASTATIN 10 MG (LIPITOR) TABLET PO SCH (21:00)
[2018-02-13] MEDS: RT-ADVAIR HFA 115/21 MCG PER PUFF IH SCH (23:27)
[2018-02-14 04:00] VITALS: BP 133/57
[2018-02-14 04:46] LABS: MEAN PLATELET VOLUME 10.6 FL (7.4-10.4); RED BLOOD COUNT 3.83 10^6/uL (4.35-5.85); RED CELL DISTRIBUTION WIDTH 15.3 % (10.0-14.5); WHITE BLOOD COUNT 7.1 10^3/uL (4.3-11.0)
[2018-02-14 05:04] LABS: BUN/CREATININE RATIO 25; CALCIUM 8.1 MG/DL (8.5-10.1); CARBON DIOXIDE 20 MMOL/L (21-32); CHLORIDE 111 MMOL/L (98-107); CREATININE SERUM 0.68 MG/DL (0.60-1.30); GFR ESTIMATED > 60; GLUCOSE 83 MG/DL (70-105); POTASSIUM 4.2 MMOL/L (3.6-5.0); SODIUM 142 MMOL/L (135-145)
[2018-02-14] MEDS: PRESERVISION AREDS SOFTGEL (BAUSH & LOMB) PO SCH (06:35)
[2018-02-14] MEDS ORDERED: MULTIVIT W/MINERALS TAB (THERAGRAN M) PO SCH (07:00)
[2018-02-14] MEDS ORDERED: KCL 10 MEQ TAB (MICRO K) PO SCH (07:00)
[2018-02-14] MEDS ORDERED: CALCIUM CARB + VIT D 600 MG (CALCARB + D) TAB PO SCH (07:00)
[2018-02-14 08:00] VITALS: BP 133/57
[2018-02-14] MEDS ORDERED: OMEGA 3 (FISH OIL) 1000 MG CAP PO SCH (08:00)
--- NOTE | 2018-02-14 08:06 | Progress Note-Cardiology ---
Cardiology SOAP Progress Note Subjective: In bed. C/O some tenderness at puncture site. No c/o CP. Mild to mod SOB which is chronic and unchanged. Objective: I&O/Vital Signs 02/14/18 02/14/18 02/14/18 02/14/18 01:00 03:25 04:00 07:00 Temp 98.3 Pulse 55 57 62 Resp 19 B/P (MAP) 133/57 (82) Pulse Ox 94 92 O2 Delivery Room Air Room Air 02/14/18 02/14/18 02/14/18 02/14/18 08:00 08:00 08:15 08:33 Temp 97.8 Pulse 61 Resp 18 B/P (MAP) 133/57 (82) Pulse Ox 97 97 90 97 O2 Delivery Room Air Room Air Room Air Room Air 02/14/18 00:00 Intake Total 1250 ml Output Total 650 ml Balance 600 ml Weight (Pounds): 142 Weight (Ounces): 6.0 Weight (Calculated Kilograms): 64.874637 Bruising: mild bruising (right popliteal site; dressing D&I) Constitutional: AAO x 3, well-developed, well-nourished Respiratory: chest expansion is symmetric, chest is bilaterally symmetric, rhonchi (scattered), other (prolonged expiratory phase) Cardiovascular: regular rate-rhythm; No JVD; S1 and S2 Gastrointestional: No tender; soft, audible bowel sounds Extremities: no lower extremity edema bilateral Neurologic/Psychiatric: grossly intact Skin: No rash, No ulcerations Results/Procedures: Labs Laboratory Tests 02/14/18 03:35: White Blood Count 7.1, Red Blood Count 3.83L, Hemoglobin 11.0#L, Hematocrit 34L , Mean Corpuscular Volume 90, Mean Corpuscular Hemoglobin 29, Mean Corpuscular Hemoglobin Concent 32, Red Cell Distribution Width 15.3H, Platelet Count 197, Mean Platelet Volume 10.6H, Sodium Level 142, Potassium Level 4.2, Chloride Level 111H, Carbon Dioxide Level 20L, Anion Gap 11, Blood Urea Nitrogen 17, Creatinine 0.68, Estimat Glomerular Filtration Rate > 60, BUN/Creatinine Ratio 25, Glucose Level 83, Calcium Level 8.1L Procedures S/P peripheral angiogram using right popliteal approach with successful intervention. Please refer to Dr. Gerardo's procedure report for details. A/P: Assessment: PAD: Successful balloon angioplasty and stenting of the right iliac and common femoral arterial system on 02-13-18. Following placement of most recent stents on 02-13-18, the patient has the following stents in the right common iliac, right external iliac, and the proximal portion of the right common femoral, from top to bottom (overlapping): Absolute Pro 7.0 x 80, Omnilink 7.0 x 39, Absolute Pro 7.0 x 80, Absolute Pro 6.0 x 40 (the overlap of 7.0 and 6.0 stents ballooned with a 7.0 balloon). Flow throughout the iliac, common femoral, superficial femoral and deep femoral arteries is brisk and normal. On the left side, there is a patent stent in the common iliac with 80% stent restenosis in the distal portion of this stent. Peripheral arterial disease with a history of balloon angioplasty of right femoral artery by Dr. North in March 2012 and bilateral iliac artery stenting on 04/19/[address] North. Balloon angioplasty and stent placement to a totally occluded left SFA per on 11-18-16. S/P balloon angioplasty to the right proximal [employer] and SFA. Balloon angioplasty of the right common iliac artery. Stent placement to the right external iliac artery on 01-05-[address] of the chest without contrast of 03-23-17: tiny pericardial effusion, or uncertain clinical significance. Echo of Jul 2017 showed no pericardial effusion. Echocardiogram of July 2017 showed LVEF 60-65%. Trivial MVR and TVR. CT of the abdomen and pelvis on 01-05-17 following above peripheral intervention showedbleeding and hematoma of the left groin; no retroperitoneal hemorrhage. Remote history of palpitations, currently controlled. Cough, chronic, prob related to ch bronchitis, followed and treated by her pcp No evidence of any significant myocardial ischemia or infarction on MPI of October 2014 Mild to moderate chronic exertional dyspnea, probably related to chronic obstructive lung disease due to chronic tobacco use. Hyperlipidemia - statin therapy, followed by pcp Chronic tobacco use - cessation advised Hypertension, currently well controlled Borderline impaired fasting glucose. History of trauma to the left leg and right ankle. She has had right ankle surgery several years ago. History of sigmoid polyps, for which she has had a polypectomy. 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; 40-59% LICA Hematoma of the left knee following a fall in January 2017 Plan: OK to discharge home today Continue current medications including Plavix and ASA Again, advised to quit smoking immediately and completely F/U appt in one week Physician Assessment Physician Assessment No cp or palp or syncope or shortness of breath or leg or knee discomfort/ discoloration since admission Lungs: good bilat air entry Cor: reg Ext: no c/c/e A&R * As documented in our note above that I updated (italics) and as noted below * I reviewed with her in detail the procedures undertaken and further treatment and f/u plan * I answered questions * Outpatient f/u is advised * I have advised immediate and complete smoking cessation PROMISE VALENTIN CORROSION CONTROL FITTER February 14, 2018 08:06 KAYLIN GERARDO MD FACP [facility] CCDS February 14, 2018 12:39
[2018-02-14] MEDS: RT-ADVAIR HFA 115/21 MCG PER PUFF IH SCH (08:14)
--- NOTE | 2018-02-14 08:32 | Discharge Inst-Cardiology ---
Discharge Inst-Cardiac Discharge Medications Continued Medications: Albuterol Sulfate (Proair Hfa) 1 Puff Puff 1-2 PUFF IH Q4H PRN for SHORTNESS OF BREATH, INHALER 1 PUFF = 90 MCG Alendronate Sodium (Alendronate Sodium) 70 Mg Tablet 70 MG PO [place], TAB Aspirin (Aspirin) 81 Mg Tab.chew 81 MG PO DAILY, TAB Budesonide/Formoterol Fumarate (Symbicort 160-4.5 Mcg Inhaler) 10.2 Gm Hfa.aer.ad 2 PUFF IH BID, INHALER Calcium Carbonate/Vitamin D3 (Calcium 600 + Vit D 800 Tab) 1 Each Tablet 1 TAB PO DAILY, TAB Clobetasol Propionate (Clobetasol Propionate) 50 Ml Solution 2 DROPS RIGHT EAR BID PRN for DRY SKIN Clopidogrel Bisulfate (Plavix) 75 Mg Tablet 75 MG PO DAILY, TAB Diphenhydramine HCl (Diphenhydramine HCl) 25 Mg Capsule 25 MG PO BID PRN for ALLERGIES, CAP Furosemide (Furosemide) 40 Mg Tablet 40 MG PO DAILY Hydrocortisone Acetate (Hydrocortisone) 28 Gm Oint...g. TP UD PRN for SORES, TUBE Lisinopril (Lisinopril) 10 Mg Tablet 10 MG PO DAILY, TAB Metoprolol Tartrate (Metoprolol Tartrate) 25 Mg Tablet 25 MG PO BID, TAB Mirabegron (Myrbetriq) 25 Mg Tab.er.24h 25 MG PO DAILY, TAB Multivit with Calcium,Iron,Min (Women's Daily Formula) 1 Each Tablet 1 TAB PO DAILY, TAB [place] 3 Polyunsat Fatty Acids (Fish Oil 1,000 mg Capsule) 1,000 Mg Cap 2000 MG PO DAILY, CAP Polyvinyl Alcohol/Povidone (Artificial Tears Drops) 15 Ml Drops 1 DROP OU QID PRN for DRY EYES, DROPS Potassium Chloride (Potassium Chloride) 10 Meq Tab.er.prt 10 MEQ PO DAILY Pravastatin Sodium (Pravastatin Sodium) 20 Mg Tablet 20 MG PO HS Psyllium Husk/Aspartame (Metamucil Powder) 174 Gm Powder 2 TBS PO DAILY, EA Verapamil HCl (Verapamil HCl) 120 Mg Tablet 120 MG PO 1800, TAB Vit C/E/Zn/Coppr/Lutein/Zeaxan (Preservision Areds 2 Softgel) 1 Each Capsule 1 CAP PO BID, CAP Patient Instructions Patient Instructions: Please schedule follow up appt to see Dr. Gerardo in one week PROMISE VALENTIN February 14, 2018 08:32
[2018-02-14] MEDS ORDERED: ASPIRIN 81 MG CHEW (CHILDREN'S ASA) PO SCH (09:00)
[2018-02-14] MEDS ORDERED: PSYLLIUM POWDER (METAMUCIL) 5.8 GM PACKET PO SCH (09:00)
[2018-02-14] MEDS ORDERED: FUROSEMIDE 40 MG (LASIX) TAB PO SCH (09:00)
[2018-02-14] MEDS ORDERED: lisINopril 10 MG (PRINIVIL) TABLET PO SCH (09:00)
[2018-02-14] MEDS ORDERED: ASPARTAME PO SCH (09:00)
[2018-02-14] MEDS ORDERED: CLOPIDOGREL 75 MG (PLAVIX) TABLET PO SCH (09:00)
[2018-02-14] MEDS ORDERED: NON-FORMULARY MEDICATION 1 EA EA (Calcium Carbonate/Vitamin D3 (Calcium 600 + Vit D 800 Ta PO SCH (09:00)
[2018-02-14] MEDS ORDERED: PSYLLIUM HUSK PO SCH (09:00)
[2018-02-14] MEDS ORDERED: NON-FORMULARY MEDICATION 1 EA EA (Potassium Chloride 10 MEQ) PO SCH (09:00)
[2018-02-14] MEDS ORDERED: NON-FORMULARY MEDICATION 1 EA EA (Multivit with Calcium,Iron,Min (Women's Daily Formula) 1 PO SCH (09:00)
[2018-02-18] MEDS ORDERED: NON-FORMULARY MEDICATION 1 EA EA (Alendronate Sodium 70 MG) PO SCH (11:45)
== END 2018-02-14 10:28 | disposition home or self-care (01) ==
LOC: CATH 07:32 → ICU 11:45 → CATH 02-14 10:28
PROVIDERS: ATTEND Internal Medicine Cardiovascular Disease
DX: I70.213 Atherosclerosis of native arteries of extremities with intermittent claudication, bilateral legs (principal); R05 Cough; R06.00 Dyspnea, unspecified; E78.5 Hyperlipidemia, unspecified; F17.210 Nicotine dependence, cigarettes, uncomplicated; I10 Essential (primary) hypertension; R73.9 Hyperglycemia, unspecified; Z86.010 Personal history of colon polyps
CPT/HCPCS: 36140; 36415; 37226; 80048; 80053; 80061; 85027; 85347; 85610; 85730; 87081; 93005; 94640

== ENCOUNTER → 2018-07-23 | Outpatient (CLI) | payer MEDICARE, MEDICAID ==
--- NOTE | 2018-07-24 19:38 | Diagnostic Imaging Report ---
Indication: Bilateral breast nodules and left breast calcifications. The study is performed for followup. Correlation is made with prior mammograms from 06/26/2017 and 08/24/2016. 2-D and 3-D bilateral diagnostic mammography was performed with CAD. Both breasts are heterogeneously dense, limiting the sensitivity of mammography. There are benign calcifications bilaterally. The cluster of calcifications in the upper and slightly outer left breast posterior depth appears stable. Circumscribed nodular densities in both breasts appear stable. No new mass or malignant-appearing microcalcifications are seen. The axillae are unremarkable. Impression: BI-RADS category 2 Stable bilateral mammograms. There are no mammographic features suspicious for malignancy. ACR BI-RADS Category 2: Benign findings. Result letter will be mailed to the patient. Note: At least 10% of breast cancer is not imaged by mammography. Dictated by: Dictated on workstation # [id number]
== END ==
LOC: RAD 12:46
PROVIDERS: ATTEND Nurse Practitioner Primary Care
DX: N63.10 Unspecified lump in the right breast, unspecified quadrant (principal); N63.20 Unspecified lump in the left breast, unspecified quadrant; B35.0 Tinea barbae and tinea capitis
CPT/HCPCS: 77066

== ENCOUNTER → 2019-03-05 | Outpatient (CLI) | payer MEDICARE, MEDICAID ==
[~2019-03-05] MED LIST changes: -ALEN70TA47 PO; +ALEN70TA5 PO
--- NOTE | 2019-03-05 11:00 | Diagnostic Imaging Report ---
INDICATION: Asymptomatic postmenopausal screening COMPARISON: 11/05/2015 FINDINGS: AP Spine L1-L4: [BMD (g/cm2): 0.994] [T-Score: -1.7] [Z-Score: 0.2] [BMD Previous: 0.984] [BMD % Change: 1.0] LT Hip Neck: [BMD (g/cm2): 0.750] [T-Score: -2.1] [Z-Score: -0.1] LT Hip Total: [BMD (g/cm2):0.818] [T-Score:-1.5] [Z-Score: 0.2] [BMD Previous: 0.841] [BMD % Change: -2.7] RT Hip Neck: [BMD (g/cm2):0.720] [T-Score:-2.3] [Z-Score:-0.4] RT Hip Total: [BMD (g/cm2):0.783] [T-score:-1.8] [Z-Score:0.0] [BMD Previous:0.797] [BMD % Change:-1.8] *Indicates significant change from prior examination based on 95% confidence level. World Health Organization criteria for BMD interpretation classify patients as Normal (T-score at or above -1.0), Osteopenic (T-score between -1.0 and -2.5) or Osteoporotic (T-score at or below -2.5). LIMITATIONS AND MODIFICATION: None. FRACTURE RISK (FRAX SCORE): The ten year probability of (%): Major Osteoporotic Fracture: [15.8] Hip Fracture: [6.2] IMPRESSION: 1. Osteopenia (Low bone mass). 2. No significant change in bone mineral density since prior examination. 3. See below National Osteoporosis Foundation guidelines on when to potentially initiate pharmacologic therapy. Based on the National Osteoporosis Foundation Guidelines, pharmacologic treatment should be initiated in any of the following, unless clinical conditions suggest otherwise: * Any patient with prior fragility fracture of the hip or vertebrae. A spine fracture indicates 5X risk for subsequent spine fracture and 2X risk for subsequent hip fracture. * Osteoporosis (T-score <-2.5). * Postmenopausal women and men age 50 and older with low bone mass/osteopenia (T-score between -1.0 and -2.5) by DXA and 10-year major osteoporotic fracture greater than 20% or a 10-year probability of hip fracture greater than 3%. These fracture risks are supplied above in the FRAX score, if applicable. * Clinician judgement and/or patient preferences may indicate treatment for people with 10-year fracture probabilities above or below these levels. Dictated by: Dictated on workstation # [id number]
== END ==
LOC: RAD 09:58
PROVIDERS: ATTEND Nurse Practitioner Primary Care
DX: Z13.820 Encounter for screening for osteoporosis (principal); M85.89 Other specified disorders of bone density and structure, multiple sites; M81.0 Age-related osteoporosis without current pathological fracture; Z78.0 Asymptomatic menopausal state
CPT/HCPCS: 77080

== ENCOUNTER → 2019-07-25 | Outpatient (CLI) | payer MEDICARE, MEDICAID ==
--- NOTE | 2019-07-25 17:58 | Diagnostic Imaging Report ---
EXAMINATION: Digital mammogram bilateral screening. The current study was also evaluated with a Computer Aided Detection (CAD) system. 3-D tomosynthesis was also performed and reviewed. INDICATION: Screening. This study was compared to the prior exams of 07/23/2018, 06/26/2017, and 08/24/2016. At this time, there are no current complaints. FINDINGS: The fibroglandular tissue in both breasts is heterogeneously dense. This does limit the sensitivity of this exam. Overall, there does not appear to have been any significant change when compared to the prior study. No primary or secondary sign of malignancy is noted. 3D tomographic images fail to show any sign of malignancy. IMPRESSION: There is no radiographic evidence for malignancy. ACR BI-RADS Category 1: Negative. Result letter will be mailed to the patient. Note: At least 10% of breast cancer is not imaged by mammography. Dictated by: Dictated on workstation # [id number]
== END ==
LOC: RAD 11:17
PROVIDERS: ATTEND Nurse Practitioner Primary Care
DX: Z12.31 Encounter for screening mammogram for malignant neoplasm of breast (principal)
CPT/HCPCS: 77067

== ENCOUNTER → 2020-08-04 | Outpatient (CLI) | payer MEDICARE, MEDICAID ==
[~2020-08-04] MED LIST changes: -ALEN70TA5 PO; +ALEN70TA69 PO; +DIPH25CA48 PO; -DIPH25CA6 PO; -TRAM50TA2 PO; +TRM50T PO; +VERA120T15 PO; -VERA120T6 PO
--- NOTE | 2020-08-04 16:13 | Diagnostic Imaging Report ---
INDICATION: Routine screening. COMPARISON: 07/25/2019 and 07/23/2018. TECHNIQUE: 2D and 3D bilateral screening mammography was performed with CAD. FINDINGS: Both breasts are heterogeneously dense, limiting the sensitivity of mammography. Benign-appearing nodular densities in the right breast appear stable. There are benign calcifications in both breasts. No spiculated mass or malignant appearing microcalcifications are seen. The axillae are unremarkable. IMPRESSION: No mammographic features suspicious for malignancy are identified. ACR BI-RADS Category 2: Benign findings. Result letter will be mailed to the patient. Note: At least 10% of breast cancer is not imaged by mammography. Dictated by: Dictated on workstation # [id number]
== END ==
LOC: RAD 13:15
PROVIDERS: ATTEND Physician Assistant
DX: Z12.31 Encounter for screening mammogram for malignant neoplasm of breast (principal)
CPT/HCPCS: 77063; 77067

== ENCOUNTER → 2021-12-14 | Outpatient (CLI) | payer MEDICARE, MEDICAID ==
[~2021-12-14] VITALS: Ht 157 cm; Wt 59.0 kg
[~2021-12-14] MED LIST changes: -ALEN70TA69 PO; +ALEN70TA80 PO; +CATHETER FLUSH 10 ML SYR IVP PRN; -LISI10TA2 PO; +LISI10TA25 PO; +POTA-164 PO; -POTA10TA14 PO; -POTA10TA36 PO; +POTA10TA37 PO; +REGADENOSON 0.4 MG/5 ML SYR (LEXISCAN) IV ONE
[2021-12-14 13:18] VITALS: BP 188/74
== END ==
LOC: CARD 11:00
PROVIDERS: ATTEND Nurse Practitioner Family
DX: R06.09 Other forms of dyspnea (principal)
CPT/HCPCS: 78452; 93017; 93306; A9502

== ENCOUNTER → 2023-02-28 | Outpatient (CLI) | payer MEDICARE, MEDICAID ==
[~2023-02-28] MED LIST changes: +ALBU8.5H6 IH; -CATHETER FLUSH 10 ML SYR IVP PRN; +CLOP-31 PO; -CLOP75TA69 PO; +DIPH-1122 PO; -DIPH25CA48 PO; +POTA-177 PO; -POTA10TA37 PO; -REGADENOSON 0.4 MG/5 ML SYR (LEXISCAN) IV ONE; -RT-ALBUINH IH
--- NOTE | 2023-02-28 13:42 | Diagnostic Imaging Report ---
INDICATION: Postmenopausal screening. COMPARISON: 03/05/2019. FINDINGS: AP Spine L1-L4: [BMD (g/cm2): 1.026] [T-Score: -1.5] [Z-Score: 0.8] [BMD Previous: 0.994] [BMD % Change: 3.2*] LT Hip Neck: [BMD (g/cm2): 0.730] [T-Score: -2.2] [Z-Score: 0.1] LT Hip Total: [BMD (g/cm2):0.800] [T-Score:-1.6] [Z-Score: 0.5] [BMD Previous: 0.818] [BMD % Change: -2.2] RT Hip Neck: [BMD (g/cm2):0.713] [T-Score:-2.3] [Z-Score:0.0] RT Hip Total: [BMD (g/cm2):0.781] [T-score:-1.8] [Z-Score:0.4] [BMD Previous:0.783] [BMD % Change:-0.3] *Indicates significant change from prior examination based on 95% confidence level. World Health Organization criteria for BMD interpretation classify patients as Normal (T-score at or above -1.0), Osteopenic (T-score between -1.0 and -2.5) or Osteoporotic (T-score at or below -2.5). LIMITATIONS AND MODIFICATION: None. FRACTURE RISK (FRAX SCORE): The ten year probability of (%): Major Osteoporotic Fracture: [22.9] Hip Fracture: [10.3] IMPRESSION: 1. Osteopenia (Low bone mass). 2. There has been a statistically significant increase in BMD since prior exam, detailed above. 3. See below National Osteoporosis Foundation guidelines on when to potentially initiate pharmacologic therapy. Based on the National Osteoporosis Foundation Guidelines, pharmacologic treatment should be initiated in any of the following, unless clinical conditions suggest otherwise: * Any patient with prior fragility fracture of the hip or vertebrae. A spine fracture indicates 5X risk for subsequent spine fracture and 2X risk for subsequent hip fracture. * Osteoporosis (T-score <-2.5). * Postmenopausal women and men age 50 and older with low bone mass/osteopenia (T-score between -1.0 and -2.5) by DXA and 10-year major osteoporotic fracture greater than 20% or a 10-year probability of hip fracture greater than 3%. These fracture risks are supplied above in the FRAX score, if applicable. * Clinician judgement and/or patient preferences may indicate treatment for people with 10-year fracture probabilities above or below these levels. Dictated by: Dictated on workstation # [id number]
== END ==
LOC: RAD 12:03
PROVIDERS: ATTEND Nurse Practitioner Family
DX: M81.0 Age-related osteoporosis without current pathological fracture (principal); M85.80 Other specified disorders of bone density and structure, unspecified site
CPT/HCPCS: 77080

== ENCOUNTER 2023-08-23 05:51 | Outpatient (CLI) | payer MEDICARE, MEDICAID ==
[~2023-08-23] VITALS: Ht 157.5 cm; Wt 45.9 kg
[2023-08-23] MEDS ORDERED: RT-ALBUINH INH (12:56)
[2023-08-23] MEDS ORDERED: FLUT1AER12 IH (12:56)
== END 2023-08-23 13:12 | disposition home or self-care (01) ==
LOC: PREOP 05:51
PROVIDERS: ATTEND Specialist
DX: Z01.818 Encounter for other preprocedural examination (principal)

== ENCOUNTER 2023-08-25 08:30 | Day surgery (SDC) | payer MEDICARE, MEDICAID ==
[~2023-08-25] VITALS: Ht 157.5 cm; Wt 45.9 kg
[~2023-08-25 08:30] MED LIST changes: +FLUT1AER12 IH; +RT-ALBUINH INH
[2023-08-25] MEDS ORDERED: MIDAZOLAM INJ 2 MG/2 ML VIAL ONE (08:37)
[2023-08-25] MEDS ORDERED: TIMOLOL 0.5% (CATARACTS) 0.3 ML BTL OU PRN (08:45)
[2023-08-25] MEDS ORDERED: POVIDONE IODINE OPHTH SOLN 5% 30 ML OP ONE (08:45)
[2023-08-25] MEDS ORDERED: MOXIFLOXACIN OPHTH SOLN 5 MG/ML 0.5 ML SYRINGE OP ONE (08:45)
[2023-08-25] MEDS ORDERED: LIDOCAINE PF 1% 2 ML VIAL IR PRN (08:45)
[2023-08-25] MEDS: TETRACAINE 0.5% OPHTH SOLN 5 ML BTL OU PRN ×4 (08:49→09:12)
[2023-08-25] MEDS: PHENYLEPHRINE 10% OPHTH SOLN 5 ML BTL OU SCH ×3 (08:57→09:12)
[2023-08-25] MEDS: TROPICAMIDE 1% OPH SOLN (MYDRIACYL) 15 ML BTL OP SCH ×3 (08:57→09:12)
[2023-08-25 09:00] VITALS: BP 229/71
--- NOTE | 2023-08-25 09:32 | Ophthalmologist Pre-Op Note ---
Pre-Operative Progress Note H&P Reviewed The H&P was reviewed, patient examined and no changes noted. Date H&P Reviewed: Aug 25, 2023 Time H&P Reviewed: 09:32 Pre-Op Dx Cataract, Right Eye MARISOL LEDESMA MD Aug 25, 2023 09:32
--- NOTE | 2023-08-25 09:53 | Ophthalmology Operative Report ---
Cataract removal/placement IOL PREOPERATIVE DIAGNOSIS: Cataract Right Eye POSTOPERATIVE DIAGNOSIS: Cataract Right Eye PROCEDURE: Cataract removal and placement of posterior chamber implant, right eye SURGEON: Jamar Ledesma ANESTHESIA: Topical with sedation COMPLICATIONS: None ESTIMATED BLOOD LOSS: Minimal DESCRIPTION OF PROCEDURE: After proper informed consent was obtained, the patient, a 77 female, was taken to the Operating Room and the right eye was anesthetized with tetracaine. The right eye was then prepped and draped in the usual manner. A wire lid speculum was placed. A paracentesis was made at the left hand position. Preservative free lidocaine was injected into the anterior chamber followed by viscoelastic. A clear corneal incision was made in the temporal position. A capsulorrhexis was preformed and the central nuclear and cortical material were removed. The posterior capsule was polished and Charles 21.0 CNA0T0 IOL was placed into the capsular bag. The residual viscoelastic was aspirated and balanced saline solution was injected into the anterior chamber. Moxifloxacin was injected into the anterior chamber. The wound was checked and found to be water tight. The patient tolerated the procedure well without complications. JAMAR LEDESMA MD Aug 25, 2023 09:53
[2023-08-25 10:03] VITALS: BP 142/78
--- NOTE | 2023-08-25 12:50 | Anesthesia-General Post-Op ---
MAC Patient Condition Mental Status/LOC: Same as Preop Cardiovascular: Satisfactory Nausea/Vomiting: Absent Respiratory: Satisfactory Pain: Controlled Complications: Absent Post Op Complications Complications None Follow Up Care/Instructions Patient Instructions None needed. Anesthesiology Discharge Order Discharge Order Patient was doing well this morning after the procedure with no complaints, stable vital signs, no apparent adverse anesthesia problems. No complications reported per nursing. GIORGIO MANZANO DO Aug 25, 2023 12:50
== END 2023-08-25 10:08 | disposition home or self-care (01) ==
LOC: SDC 08:30
PROVIDERS: ATTEND Specialist
DX: H25.9 Unspecified age-related cataract (principal); F17.200 Nicotine dependence, unspecified, uncomplicated
CPT/HCPCS: 66984; V2632